=== PATIENT | male | born 1960 | race Hispanic/Latino ===

== ENCOUNTER 2017-01-25 15:25 | Outpatient (CLI) | payer BC ==
[2017-01-25 17:10] LABS: #Basophils 0.1 thou/uL (0.0-0.2); #Eosinphils 0.2 thou/uL (0.0-0.7); #Lymphocytes 1.2 thou/uL (1.20-3.40); #Monocytes 0.4 thou/uL (0.11-0.59); #Neutrophils 10.3 thou/uL (1.40-6.50); %Basophils 0.5 % (0.0-1.0); %Eosinophils 1.9 % (0.0-10.0); %Lymphocytes 10.1 % (21.0-51.0); %Monocytes 3.3 % (0.0-10.0); Hematocrit 36.4 % (42.0-52.0); Mean Platelet Volume 6.7 fL (7.4-10.4); Red Blood Cell (RBC) Count 4.43 mill/uL (4.70-6.10); White Blood Cell (WBC) Count 12.3 thou/uL (4.8-10.8)
[2017-01-25 17:50] LABS: Anion Gap 14 mmol/L (10-20); BUN (Urea Nitrogen) 35 mg/dL (8.4-25.7); Calc. Creatinine Clearance 0 mL/min (70-130); Calcium 9.9 mg/dL (7.8-10.44); Carbon Dioxide 22 mmol/L (22-29); Chloride 102 mmol/L (98-107); Estimated GFR-MDRD 50
--- NOTE | 2017-01-27 06:24 | EKG ---
Test Reason : PREOP Blood Pressure : / mmHG Vent. Rate : 084 BPM Atrial Rate : 084 BPM P-R Int : 230 ms QRS Dur : 180 ms QT Int : 406 ms P-R-T Axes : 036 -61 029 degrees QTc Int : 479 ms Sinus rhythm with 1st degree A-V block Possible Left atrial enlargement Right bundle branch block Left anterior fascicular block Bifascicular block Left ventricular hypertrophy with QRS widening Cannot rule out Septal infarct , age undetermined Abnormal ECG No previous ECGs available Confirmed by LAKEISHA ORDOÑEZ ([id number]) on 01/27/2017 6:24:04 AM Referred By: FARRUKH Confirmed By:LAKEISHA ORDOÑEZ
== END 2017-01-25 15:26 | disposition home or self-care (01) ==
LOC: LABBT 15:25
PROVIDERS: ATTEND Podiatrist Foot & Ankle Surgery
DX: Z01.818 Encounter for other preprocedural examination (principal); L97.419 Non-pressure chronic ulcer of right heel and midfoot with unspecified severity; M86.9 Osteomyelitis, unspecified
CPT/HCPCS: 80048; 85025; 93005; 93010

== ENCOUNTER → 2017-01-26 | Day surgery (SDC) | payer BC ==
[2017-01-25 15:51] VITALS: BMI 27.8
[~2017-01-26] MED LIST: Bupivacaine PF 0.5% 30 ML VIAL ONE; Esmolol 100 MG/10 ML VIAL ONE; Fentanyl 100 MCG/2 ML VIAL ONE; Ketorolac Tromethamine 30 MG/ML VIAL ONE; Lidocaine 2% PF 10 ML AMP (For Epidural Use) ONE; Midazolam HCl 2 mg/2 ml Vial ONE; Neomycin-Polymyxin 1 ML AMP ONE; Ondansetron HCl/PF 4 MG/2 ML Vial ONE; PHENYLEPHRINE-NS 100 MCG/ML 10 ML SYRINGE ONE; Propofol 200 MG/20 ML VIAL ONE
--- NOTE | 2017-01-26 16:54 | RAD ---
RIGHT FOOT THREE VIEWS: History: Right foot surgery. Follow up. Comparison: 06-30-16 FINDINGS: Amputation of the fifth ray is now apparent at the level of the proximal metatarsal shaft. Old opera tive changes of the fourth metatarsal are stable. No soft tissue gas or metallic foreign bodies are evident. Large area of dystrophic calcification projects over the posterior aspect of the plantar fa scia. IMPRESSION: Further surgical changes of the lateral aspect of the right foot. POS: BONNIE
--- NOTE | 2017-01-26 18:59 | OP ---
DATE OF PROCEDURE: 01/26/2017 SURGEON: Kimberly Davis DPM. PREOPERATIVE DIAGNOSES: Osteomyelitis, right fifth digit and metatarsal, chronic diabetic foot ulce r, left plantar fifth metatarsal head. POSTOPERATIVE DIAGNOSES: Osteomyelitis, right fifth digit and metatarsal, chronic diabetic foot ulc er, left plantar fifth metatarsal head. PROCEDURES PERFORMED: Amputation of fifth digit and metatarsal right foot and fifth metatarsal righ t foot. ANESTHESIA: General with local foot block. HEMOSTASIS: Pneumatic ankle tourniquet at 300 mmHg. ESTIMATED BLOOD LOSS: 30 mL. MATERIALS: 2-0 Vicryl, 3-0 Prolene, 2-0 Prolene and 0 Prolene. INJECTABLES: 30 mL of 0.5% Marcaine plain. DESCRIPTION OF PROCEDURE: The patient was brought into the operating room and placed on the operati ng table in supine position, well-padded pneumatic ankle tourniquet was placed about the patient's l eft ankle. Following administration of IV anesthesia, local foot block was given utilizing 30 mL of 0.5% Marcaine plain. The foot was then scrubbed, prepped and draped in usual aseptic manner. Lisbeth [facility] bandage was used to exsanguinate the patient's left foot and the pneumatic ankle tourniquet was then inflated to 300 mmHg, which provided adequate hemostasis throughout the entire procedure. Next , attention was then directed to the lateral aspect of the patient's right foot where a semi ellipti luciano incision was made around the first metatarsal head and metatarsal was then freed of all soft tis susie attachments. All necrotic tissue and bone were then resected and passed from the operative fiel d. The wound was then inspected and it was noted that the base of the proximal phalanx was necrotic and at this time, it was decided that the fifth digit was nonviable and was resected from the opera tive field. The wound was then inspected. No remaining necrotic tissue, bone, or muscle remained. A 3000 mL pulse lavage was then performed with to irrigate the wound. Next, utilizing 2-0 Vicry l, the subcuticular structures were reapproximated and coapted and the skin was closed utilizing 2-0 , 3-0 and 0 Prolene and simple interrupted suture technique. A bulky compressive dressing was place d about the patient's right foot and the pneumatic ankle tourniquet was released with prompt hyperem ic response noted to all digits of the foot. DISCHARGE SUMMARY: The patient tolerated the procedure and anesthesia and was transferred to the re covery room with vital signs stable and vascular status intact to all digits of the right foot. Fol lowing a period of postoperative monitoring, the patient is to be discharged home and advised to luciano l within 1 week and will be seen on Tuesday. Should he have any problems before his first appointmen t, he is advised to call and will be seen as soon as possible.
== END ==
LOC: SDC 11:56
PROVIDERS: ATTEND Podiatrist Foot & Ankle Surgery
PROC: 0Y6M0Z8 Detachment at Right Foot, Complete 5th Ray, Open Approach (ICD-10-PCS; principal; 2017-01-26)
DX: L97.514 Non-pressure chronic ulcer of other part of right foot with necrosis of bone (principal); E11.621 Type 2 diabetes mellitus with foot ulcer; M86.9 Osteomyelitis, unspecified; Z79.4 Long term (current) use of insulin; Z79.899 Other long term (current) drug therapy; Z89.429 Acquired absence of other toe(s), unspecified side; Z98.890 Other specified postprocedural states
CPT/HCPCS: 36416; 87070; 87077; 87186; 87205; J1170; J1885; J2001; J2250; J2405; J2704; J3010; S0020

== ENCOUNTER 2018-09-04 11:28 | Inpatient (IN) | payer BC, OTHER, SELFPAY ==
[2018-09-04 12:16] LABS: Bilirubin Negative (Negative); Blood, Urine Moderate (Negative); Clarity CLOUDY (Clear); Glucose, Urine (Dipstick) 500 mg/dL (Negative); Leukocyte Negative (Negative); Nitrite Negative (Negative); Protein, Urine (Dipstick) > or equal to 300 mg/dL (Neg-Trace)
[2018-09-04 12:22] LABS: Hemoglobin 8.6 g/dL (14.0-18.0); Mean Corpuscular HGB CONC 33.2 g/dL (32.0-36.0); Mean Corpuscular Hemoglobin 26.8 pg (27.0-31.0); Mean Corpuscular Volume 80.9 fL (78.0-98.0); Mean Platelet Volume 6.6 fL (7.4-10.4); Platelet Count 382 thou/uL (130-400); RBC Distribution Width 12.7 % (11.5-14.5); Red Blood Cell (RBC) Count 3.22 mill/uL (4.70-6.10); White Blood Cell (WBC) Count 21.2 thou/uL (4.8-10.8)
[2018-09-04 12:25] LABS: Pathc Cast-AUWi Flag 7.61 (0-2.49)
[2018-09-04] MEDS ORDERED: Ondansetron PF 4 MG/2 ML Vial ONE (12:31)
[2018-09-04] MEDS ORDERED: Morphine 4 MG/ML VIAL ONE (12:31)
[2018-09-04 12:39] LABS: Bacteria/HPF 2+ HPF (None Seen); Hyaline Casts/LPF 0-3 HYALINE CAST LPF (0-3 Hyaline)
[2018-09-04 12:40] LABS: Manual Microscopic Reviewed? No Path Casts Seen; Renal Epithelial None Seen HPF (0-3); Transitional Epithelial NONE SEEN HPF (0-3)
[2018-09-04 12:40] LABS: Band 21 % (5-11); Lymphocytes 2 % (21-51); MDiff Complete? YES; Monocytes 10 % (0-10); Neutrophil 67 % (42-75); Platelet Morphology Comment Appears Adequate; Polychromasia SLIGHT = 2-3 cells (100X) (0-2/hpf)
[2018-09-04 12:41] LABS: ALT (SGPT) 16 U/L (8-55); AST (SGOT) 18 U/L (5-34); Albumin 2.5 g/dL (3.5-5.0); Alkaline Phosphatase 171 U/L (40-150); Anion Gap 17 mmol/L (10-20); BUN (Urea Nitrogen) 57 mg/dL (8.4-25.7); Bilirubin, Total 0.5 mg/dL (0.2-1.2); Calc. Creatinine Clearance 0 mL/min (70-130); Calcium 9.1 mg/dL (7.8-10.44); Carbon Dioxide 17 mmol/L (22-29); Chloride 96 mmol/L (98-107); Estimated GFR-MDRD 12; Globulin 3.8 g/dL (2.4-3.5); Glucose 207 mg/dL (70-105); Potassium 4.6 mmol/L (3.5-5.1); Protein, Total 6.3 g/dL (6.0-8.3); Sodium 125 mmol/L (136-145)
--- NOTE | 2018-09-04 12:45 | RAD ---
RIGHT FOOT 3 VIEWS: HISTORY: Diabetic ulcer on right foot. COMPARISON: 01/26/2017 FINDINGS: Postoperative changes of amputation involving the fourth and fifth digits are again seen in the dista l fourth and proximal left metatarsals. A large area of dystrophic calcification in the posterior aspect of the plantar fascia is again seen. There are foci of soft tissue air at the posterior aspect of the ankle and distal leg and the soft ti ssues of the foot. Possibility of soft tissue infection should be considered..
[2018-09-04] MEDS ORDERED: Piperacillin/Tazobactam 4.5 GM VIAL ONE (13:05)
--- NOTE | 2018-09-04 13:09 | RAD ---
XR Chest 1 View Portable HISTORY: Diabetic ulcer on right foot COMPARISON: None FINDINGS: The heart size is prominent. There is elevation the right hemidiaphragm. No lobar consolida tion, pneumothoraces, lore pulmonary edema or pleural effusions are seen. IMPRESSION: No radiographic evidence of acute cardiopulmonary process.
[2018-09-04] MEDS ORDERED: Vancomycin HCl 1.25 GM in Sodium Chloride 0.9% 250 ML 250 ML IVPB SCH (13:15)
[2018-09-04] MEDS ORDERED: Acetaminophen 500 MG TAB ONE (14:19)
[2018-09-04] MEDS ORDERED: Ondansetron PF 4 MG/2 ML Vial IVP PRN (17:44)
[2018-09-04] MEDS ORDERED: Ondansetron ODT 4 MG TAB SL PRN (17:44)
[2018-09-04] MEDS ORDERED: Sodium Chloride 0.9% 1,000 ML IV SCH (17:44)
[2018-09-04] MEDS ORDERED: Morphine 4 MG/ML VIAL SLOW IVP PRN (17:46)
[2018-09-04] MEDS ORDERED: HumaLOG 300 UNITS/3 ML VIAL SC PRN ×2 (17:47)
[2018-09-04] MEDS ORDERED: Dextrose 5% in Water 1,000 ML IV PRN (17:47)
[2018-09-04] MEDS ORDERED: Dextrose 50% Abboject 50 ML SYRINGE IVP PRN (17:47)
[2018-09-04] MEDS ORDERED: Insulin Regular 300 UNITS/3 ML VIAL SC PRN ×2 (17:51)
[2018-09-04] MEDS: Piperacillin/Tazobactam 2.25 GM in Sodium Chloride 0.9% 100 ML IVPB SCH (19:34)
[2018-09-05] MEDS: Piperacillin/Tazobactam 2.25 GM in Sodium Chloride 0.9% 100 ML IVPB SCH ×4 (00:23→23:24)
[2018-09-05] MEDS ORDERED: Vancomycin HCl 1.25 GM in Sodium Chloride 0.9% 250 ML 250 ML IVPB SCH (02:00)
--- NOTE | 2018-09-05 02:26 | HP ---
CHIEF COMPLAINT: Sepsis and gangrene to the right foot. HISTORY OF PRESENT ILLNESS: The patient is a 58-year-old diabetic male, who has a long history of noncompliance concerning his diabetes or any medical care. He has had a history of previous amputation to the right foot due to diabetic complications stemming ultimately from not taking medical advice. He has been ill for over a week with fevers and nausea. What finally brought him to Dr. Bright' office is the nausea. He walked into Dr. Bright' office with 101.4 temperature. On examination of the right foot, the malodorous ulceration and drainage were tremendous. He also had pain in the right foot; at which point, he was referred to the emergency room for probable hospital admission. In the ER, he admitted to fever, chills, nausea, and vomiting. He walked in tachycardic and temperature 101.4. Again, examination of the right foot revealed soft tissue air behind the ankle and up the leg along with the foot itself and open nonhealing wound was noted. The patient appeared quite ill. Fluid resuscitation was begun and after cultures were obtained, IV antibiotics began. It is noted that his renal function has fairly diminished and he with ketones was noted to be mildly dehydrated. He is admitted for further care and surgical consultation, which will probably result in some debridement if not amputation. Fortunately, x-ray does not show any osteomyelitis. PAST MEDICAL HISTORY: Type 2 diabetes; hypertension; neuropathy, diabetic; parathyroid adenoma with resection; dyslipidemia; and significant medical noncompliance. PAST SURGICAL HISTORY: As mentioned previously, 2 surgeries on the right foot with its resulting in amputations, parathyroid resection for an adenoma. He has also had orthopedic surgery to his right shoulder. ALLERGIES: HE HAS NO KNOWN DRUG ALLERGIES. MEDICATIONS ON ADMISSION: Included: 1. Ramipril 10 mg daily. 2. Metformin 1000 mg b.i.d. 3. Hydrochlorothiazide 50 mg daily. 4. Vitamin B6 100 mg daily. 5. Other prescriptions were given to control the diabetes, but these were not filled. REVIEW OF SYSTEMS: CONSTITUTIONAL: On admission significant for chills, fever, and general malaise. HEENT: No drainage or sores from the ears, nose, and throat. CHEST: Denies shortness of breath or cough. CARDIOVASCULAR: Denies chest pain or palpitations. GI: Significant for nausea and vomiting. Denies diarrhea. : Negative for blood in urine or stool. Denies dysuria. MUSCULOSKELETAL: Significant for right lower extremity swelling and pain. SKIN: Skin with nonhealing right diabetic foot ulcer that has gotten worse with drainage and foul odor. NEUROLOGIC: He has significant neuropathy in both lower extremities. Denies headaches or blurred vision. PHYSICAL EXAMINATION: At the time of admission: VITAL SIGNS: Blood pressure is 130/62, pulse 103, respirations 18, temperature 101.4, pain scale 7/10 and O2 saturation 97% on room air. GENERAL: This is a pale, lethargic, [place] male, who is slow to respond, but oriented. HEENT: Normocephalic, atraumatic. Pupils are equal, round, and reactive to light. Extraocular muscles are intact. TMs, nares, and pharynx are clear. NECK: Supple. Trachea midline. CHEST: Clear to auscultation. HEART: Regular rate and rhythm. No murmur. ABDOMEN: Soft, nontender without hepatosplenomegaly. : Deferred. EXTREMITIES: Upper extremities and left lower extremity without clubbing, cyanosis, or edema. Right lower extremity, however, has nonhealing ulcer wound, draining malodorous discharge and tender to evaluation. The 4th and 5th toes on the right foot are missing. The sores are 4 x 4 cm stage IV ulceration. NEUROLOGIC: Cranial nerves are intact. Unable to test gait and cerebellar function at this time. Sensory exam is diminished in the lower extremities from the shins down. LABORATORY DATA: Lab on my evaluation. EKG shows sinus tachycardia with incomplete right bundle-branch block. Left ventricular hypertrophy with 107 beats per minute. Chest x-ray shows no acute findings. X-ray of the right lower extremity shows soft tissue air extending behind the ankle up the leg and soft tissue swelling and showed the missing 4th and 5th toes. No osteomyelitis. WBCs are 21,200, hemoglobin 8.6, hematocrit 26, platelets are 382 with 21% bands. Sodium 125, potassium is 4.6, chloride 96, CO2 of 17, BUN 57, creatinine 4.86 with a glucose of 207. Liver functions unremarkable except for alkaline phos elevated at 171. Urinalysis reveals proteinuria, glucosuria, trace ketones and moderate blood. ASSESSMENT: 1. Sepsis. 2. Right foot gangrene due to nonhealing diabetic ulcer. 3. Type 2 diabetes - noncompliant. 4. End-stage renal disease also due to noncompliance with medication for hypertension and diabetes. 5. Hypertension. PLAN: Cultures were taken. We will continue IV antibiotics. Surgical consultation and Renal consultation will be sought. We will maintain wound care and pain management and serially re-evaluate the patient. Job ID: [id number]
[2018-09-05] MEDS ORDERED: Morphine 4 MG/ML VIAL SLOW IVP PRN (07:11)
[2018-09-05] MEDS ORDERED: Zolpidem Tartrate 5 MG TAB PO PRN (07:13)
[2018-09-05] MEDS ORDERED: Sodium Chloride 0.9% 1,000 ML IV SCH ×2 (07:15→19:04)
[2018-09-05] MEDS ORDERED: Dextrose 50% Abboject 50 ML SYRINGE IVP PRN (07:17)
[2018-09-05] MEDS ORDERED: Dextrose 5% in Water 1,000 ML IV PRN (07:17)
[2018-09-05 07:39] LABS: Anion Gap 19 mmol/L (10-20); BUN (Urea Nitrogen) 67 mg/dL (8.4-25.7); Calc. Creatinine Clearance 20 mL/min (70-130); Calcium 8.4 mg/dL (7.8-10.44); Carbon Dioxide 13 mmol/L (22-29); Chloride 100 mmol/L (98-107); Estimated GFR-MDRD 12; Glucose 150 mg/dL (70-105); Potassium 4.6 mmol/L (3.5-5.1); Sodium 127 mmol/L (136-145)
[2018-09-05 07:41] LABS: Hemoglobin 7.7 g/dL (14.0-18.0); Mean Corpuscular HGB CONC 33.8 g/dL (32.0-36.0); Mean Corpuscular Hemoglobin 27.9 pg (27.0-31.0); Mean Corpuscular Volume 82.6 fL (78.0-98.0); Mean Platelet Volume 7.1 fL (7.4-10.4); Platelet Count 288 thou/uL (130-400); RBC Distribution Width 12.8 % (11.5-14.5); Red Blood Cell (RBC) Count 2.76 mill/uL (4.70-6.10); White Blood Cell (WBC) Count 19.8 thou/uL (4.8-10.8)
[2018-09-05 08:07] LABS: Band 23 % (5-11); Burr Cells SLIGHT = 2-5 cells (100X) (0-1/hpf); Lymphocytes 3 % (21-51); MDiff Complete? YES; Monocytes 5 % (0-10); Neutrophil 69 % (42-75); Platelet Morphology Comment Appears Adequate; Polychromasia SLIGHT = 2-3 cells (100X) (0-2/hpf)
[2018-09-05 08:27] LABS: Hemoglobin A1c 10.7 % (4.0-6.0)
--- NOTE | 2018-09-05 08:29 | ULT ---
Ultrasound renal: HISTORY: 58-year-old male with hematuria and acute renal failure FINDINGS: There is no hydronephrosis. Bilateral renal parenchymal echogenicity is diffusely mildly increased, c onsistent with medical renal disease. Right kidney measures 11.5 x 6 x 6 cm. Left kidney measures 12 x 6 x 6.5 cm. There is nonspecific diffuse mural thickening of the incompletely distended urinary bladder. No moderate sized or large renal cystic or solid lesion identified. IMPRESSION: 1. No hydronephrosis. 2. Evidence for medical renal disease.
[2018-09-05] MEDS ORDERED: Vancomycin HCl 1 GM in Premix Bag 1 BAG IVPB SCH ×2 (09:00→14:30)
[2018-09-05] MEDS: Insulin Regular 300 UNITS/3 ML VIAL SC PRN ×2 (13:45→18:03)
[2018-09-05 14:31] LABS: Iron Less than 8 ug/dL (65-175); Iron Binding Capacity, Total 80 mcg/dL (261-462)
[2018-09-05] MEDS ORDERED: Epoetin (ESRD) 20,000 UNITS/ML SC SCH (19:15)
[2018-09-05] MEDS ORDERED: EPOETIN ALFA-EPBX (ESRD) 4,000 UNIT/ML VIAL SC SCH (20:00)
[2018-09-05] MEDS: Ondansetron PF 4 MG/2 ML Vial SLOW IVP PRN (23:31)
--- NOTE | 2018-09-06 01:37 | CON ---
DATE OF CONSULTATION: CONSULTING PHYSICIAN: Syed Webber MD REASON FOR CONSULTATION: Advanced kidney disease plus also acute on chronic kidney disease. IMPRESSION: 1. Advanced kidney disease, stage 5 plus acute on chronic kidney disease, likely in the context of diabetic nephropathy due to poorly controlled diabetes. 2. Potential cytokine mediated acute kidney injury in the context of infection cannot be completely ruled out. 3. Metabolic acidosis, likely in the context of advanced renal failure. 4. Anemia, likely anemia of chronic kidney disease, but cannot completely to rule out iron deficiency. 5. Poorly controlled diabetes, already complicated by possible vascular disease and renal failure. PLAN: 1. Iron studies to evaluate what type of anemia this patient has. 2. The patient likely to benefit from erythropoietin stimulating agents. 3. From all indication, the patient likely to the point of stage 5 chronic kidney disease, unless remarkable improvement is noted within the next 24-48 hours. 4. Will begin to plan for access in this patient in case if the renal function does not improve. 5. Renally dose all medications for low GFR. 6. We will evaluate all the . 7. Further management will be dependent on the clinical course. 8. Hold Ramipril and discontinue metformin. 9. Discontinue IV fluids. HISTORY OF PRESENT ILLNESS: A 58-year-old gentleman with poorly-controlled diabetes, who presented to the primary care physician with the concern of nausea and vomiting. The patient also does have right foot gangrene and was noted to be febrile. The patient presented to the ER and noted with a temperature of up to 101.4. Further evaluation did reveal elevated creatinine of about 4.8. At this time of consultation, creatinine has gone up above 5. The patient noted to be significantly acidotic. As a result of all these findings, decision has been taken to involve Renal in the management of this case. PAST MEDICAL HISTORY: Significant for type 2 diabetes, poorly controlled hypertension, and dyslipidemia. MEDICATIONS: Reviewed and as documented on [employer]. ALLERGIES: NO KNOWN DRUG ALLERGIES. REVIEW OF SYSTEMS: As documented in the body of the history. All the other systems were reviewed and found not to be significantly related to present illness. PHYSICAL EXAMINATION: GENERAL: The patient was found not to be in any obvious respiratory distress. VITAL SIGNS: Noted with the following vital signs; afebrile, temperature 99.2, pulse 69, respiratory rate of 18, O2 saturation of 99% with a blood pressure 128/70. HEENT: Unremarkable. Moist oral mucosa. Neck was supple. No conjunctival injection or icterus. CARDIOVASCULAR: First and second heart sounds were heard. RESPIRATORY SYSTEM: Clear to auscultation. DIGESTIVE: Revealed a benign abdomen. EXTREMITIES: Showed some peripheral edema. SKIN: Examination showed some lower extremity depigmentation. SUMMARY: A 58-year-old gentleman with poorly-controlled diabetes, who most likely has advanced chronic kidney disease at stage 5 in the context of diabetic nephropathy, already complicated by acidosis and possible incipient uremia. Thank you for this consultation. We will follow with you. Job ID: [id number]
[2018-09-06 02:26] LABS: Creatinine, Urine 63.98 mg/dL (63-166)
[2018-09-06] MEDS: Piperacillin/Tazobactam 2.25 GM in Sodium Chloride 0.9% 100 ML IVPB SCH ×4 (05:33→23:52)
[2018-09-06] MEDS: Ondansetron PF 4 MG/2 ML Vial SLOW IVP PRN (08:38)
[2018-09-06 08:45] LABS: Hemoglobin 8.2 g/dL (14.0-18.0); Mean Corpuscular HGB CONC 32.3 g/dL (32.0-36.0); Mean Corpuscular Hemoglobin 26.8 pg (27.0-31.0); Mean Corpuscular Volume 83.2 fL (78.0-98.0); Mean Platelet Volume 6.9 fL (7.4-10.4); Platelet Count 360 thou/uL (130-400); RBC Distribution Width 13.2 % (11.5-14.5); Red Blood Cell (RBC) Count 3.04 mill/uL (4.70-6.10); White Blood Cell (WBC) Count 26.4 thou/uL (4.8-10.8)
[2018-09-06 08:57] LABS: Albumin 2.3 g/dL (3.5-5.0); Anion Gap 20 mmol/L (10-20); BUN (Urea Nitrogen) 84 mg/dL (8.4-25.7); BUN/Creatinine Ratio 13.86; Calc. Creatinine Clearance 17 mL/min (70-130); Calcium 8.6 mg/dL (7.8-10.44); Carbon Dioxide 12 mmol/L (22-29); Chloride 98 mmol/L (98-107); Estimated GFR-MDRD 10; Glucose 187 mg/dL (70-105); Potassium 4.6 mmol/L (3.5-5.1); Sodium 125 mmol/L (136-145)
--- NOTE | 2018-09-06 09:18 | CON ---
DATE OF CONSULTATION: 09/05/2018 The patient is located on fourth floor of the tower 44[address]. HISTORY OF PRESENT ILLNESS: Mr. Parry is a 58-year-old male , who presents today for sepsis, ulcer on the plantar aspect of his right foot. The patient claims that he has had an open sore for several weeks. Prior to the sore opening, it was a callus on the bottom of his foot that was treated on and off for years by several local pastry assistant in town and Dr. Jackman, General Surgery. The patient claims that the ulcer this past week developed a smell and became swollen in nature. He developed fevers and chills over the weekend. Presented to his primary care, Dr. Geronimo Bright on 09/04/2018, yesterday, who told him he needed to go to the ER and was admitted. The patient is high risk, has a history of diabetes with neuropathy with fourth and fifth amputations on the right foot. PAST MEDICAL HISTORY: Significant for renal disease, diabetes with neuropathy, and hypertension. ALLERGIES: NO DRUG ALLERGIES. SOCIAL HISTORY: Denies alcohol or tobacco use. FAMILY HISTORY: Positive for diabetes. PAST SURGICAL HISTORY: Includes thyroidectomy, shoulder surgery and fourth and fifth digit right foot amputations. MEDICATIONS: Noted in chart. REVIEW OF SYSTEMS: Noted in chart. PHYSICAL EXAMINATION: LOWER EXTREMITIES: Vascular status 2/4, dorsalis pedis 1/4, posterior tibial pulses bilaterally. Capillary fill time 3 seconds or less digits 1 through 5, left foot and digits 1, 2 and 3 on the right foot. Warm skin. Pigmentary changes. Mild discoloration. Reduced hair growth. NEUROLOGIC: Epicritic sensation is reduced, bilateral feet. Protected threshold significantly reduced bilateral feet. MUSCULOSKELETAL: Examination reveals 5/5 muscle grading, good range of motion bilateral lower extremities. Ambulatory. History of fourth and fifth digit amputations, right foot. DERMATOLOGIC: An open ulceration measuring approximately 3 cm x 2 cm in diameter with exposed second metatarsal head bone is noted on the plantar aspect of the right foot. There is deep fascia nonviable muscle necrotic tissue noted to the base of the wound extending from the second MPJ to the third MPJ. Mild erythema, edema and warmth to the jacqueline-marginal skin area surrounding the ulcer base. There is serous drainage, mild purulent drainage also noted on compression of the foot. No acute cellulitis is noted at this time. ASSESSMENT AND PLAN: Acute osteomyelitis, open ulceration, diabetic ulcer, plantar right foot. Due to exposed second metatarsophalangeal, right foot and possible third metatarsophalangeal, right foot, the patient at this time needs surgical bone resection/possible amputation, partial of right foot. It is hard to distinguish the extent of the infection at this time, so I ordered an MRI of the right foot this evening to be performed as soon as possible in the morning. The plan is to hopefully schedule patient for surgery tomorrow evening and put the patient n.p.o. in the morning. I will await MRI results for further treatment at this time. Thank you for consultation. If there are any questions or concerns, please call me at [phone]. Job ID: [id number]
[2018-09-06 09:30] LABS: Band 16 % (5-11); Burr Cells SLIGHT = 2-5 cells (100X) (0-1/hpf); Lymphocytes 5 % (21-51); MDiff Complete? YES; Monocytes 2 % (0-10); Myelocyte 1 % (0-0); Neutrophil 76 % (42-75); Platelet Morphology Comment Appears Adequate; Polychromasia SLIGHT = 2-3 cells (100X) (0-2/hpf)
[2018-09-06] MEDS: Insulin Regular 300 UNITS/3 ML VIAL SC PRN ×2 (12:46→16:40)
--- NOTE | 2018-09-06 12:51 | MRI ---
MRI OF THE RIGHT FOOT WITHOUT CONTRAST: HISTORY: A 58-year-old male with a diabetic foot ulcer. COMPARISON: Radiograph dated 09/04/2018. FINDINGS: Again seen is postsurgical change of a partial radial amputation to the 4th and 5th digits. There is a large plantar-based wound underlying the 3rd and 2nd metatarsophalangeal joints. There is an ununited angulated fracture involving the 2nd digit proximal phalangeal neck. There is m ild edema within the bone marrow of the 2nd metatarsal head and base of the 2nd digit proximal phalan x. There is a mild joint effusion. The findings on this noncontrast examination are suspicious for septic arthritis and early osteomyelitis of the 2nd digit MTP joint. More pronounced edematous change is evident involving the 3rd digit MTP joint with more prominent eliseo nt effusion and abnormal signal involving the 3rd digit MTP head and 3rd digit proximal phalanx. There is diffuse edema within the soft tissues and musculature of the right foot. There is heterotop ic ossification seen within the medial plantar fascial band. Soft tissue gas is present on the radio graph dated 09/04/2018 is not as well seen on the current MRI examination and is suspicious for an asc ending soft tissue infection. There is abnormal marrow signal involving the distal tip of the 4th metatarsal amputation site suspic ious for residual osteomyelitis at the amputation margin. There is mild scattered osteoarthrosis. IMPRESSION: 1. Osteomyelitis of the 2nd through 4th metatarsals. 2. Osteomyelitis of the proximal phalanx of the 2nd and 3rd digits. 3. Septic arthritis of the 2nd and 3rd digit metatarsophalangeal joints. 4. Diffuse edema and cellulitis of the foot and ankle. POS: CET
[2018-09-06 14:27] LABS: Vancomycin, Random 21.6 ug/mL (See Comment)
[2018-09-06] MEDS ORDERED: PHENYLEPHRINE-NS 100 MCG/ML 10 ML SYRINGE ONE (16:33)
[2018-09-06] MEDS ORDERED: Rocuronium Bromide 10 MG/ML (10ML VIAL) ONE (16:33)
[2018-09-06] MEDS ORDERED: Glycopyrrolate 0.2 MG/ML 5 ML SYRINGE ONE (16:33)
[2018-09-06] MEDS ORDERED: Sodium Bicarb 50 MEQ/50 ML VIAL ONE (16:33)
[2018-09-06] MEDS ORDERED: ePHEDrine 50 MG/ML VIAL ONE (16:33)
[2018-09-06] MEDS ORDERED: EPINEPHrine 1 MG/10 ML Abboject SYRINGE ONE (16:33)
[2018-09-06] MEDS ORDERED: Calcium Chloride 1 GM/10 ML Abboject SYRINGE ONE (16:33)
[2018-09-06] MEDS ORDERED: Esmolol 100 MG/10 ML VIAL ONE (16:33)
[2018-09-06] MEDS ORDERED: Lidocaine 1% PF 5 ML VIAL ONE (16:33)
[2018-09-06] MEDS ORDERED: PROPOFOL 200 MG/20 ML VIAL ONE (16:33)
--- NOTE | 2018-09-06 17:50 | EKG ---
Test Reason : Blood Pressure : / mmHG Vent. Rate : 087 BPM Atrial Rate : 087 BPM P-R Int : 206 ms QRS Dur : 186 ms QT Int : 400 ms P-R-T Axes : 026 -55 023 degrees QTc Int : 481 ms Normal sinus rhythm Right bundle branch block Left anterior fascicular block Bifascicular block Minimal voltage criteria for LVH, may be normal variant Abnormal ECG When compared with ECG of 04-SEP-2018 12:30, (Unconfirmed) No significant change was found Confirmed by DR. Sangita LEE ([id number]) on 09/06/2018 5:50:21 PM Referred By: FLORENTIN Confirmed By:DR. Sangita LEE
--- NOTE | 2018-09-06 18:43 | PRG ---
DATE OF SERVICE: 09/06/2018 SUBJECTIVE: The patient is seen and examined, not doing very well. He obviously in some distress. Noted with the following vital signs. OBJECTIVE: VITAL SIGNS: Afebrile, temperature 97.9, pulse 88, respiratory rate of 20, O2 saturations are 97% with a blood pressure 126/63. HEENT: Unremarkable. CARDIOVASCULAR SYSTEM: First and second heart sounds were heard. RESPIRATORY SYSTEM: Clear to auscultation. DIGESTIVE SYSTEM: Revealed benign abdomen. EXTREMITIES: Show 2+ bilateral lower extremity edema. SKIN: No new gross rash. LYMPHATICS: No peripheral lymphadenopathy. LABORATORY INVESTIGATION: Showed white count of 26,400 with hemoglobin of 8.2. Chemistry showed a sodium of 125, bicarb of 12, BUN of 84 with a creatinine of 6.06, and PTH of 286. IMPRESSION: 1. Acute on chronic kidney disease, which has progressed to the point requiring renal replacement therapy. 2. Worsening metabolic acidosis related to problem #1. 3. Hyperphosphatemia and hyperparathyroidism related to problem #1. 4. Bacteremia. PLAN: 1. We will consult surgery for dialysis access. In this case, we will also plan for long-term dialysis access in the wear of AV fistula. 2. Vein mapping in preparation for long-term dialysis access. 3. We will defer to surgery in terms of the choice of dialysis catheter temporary vessels given the positive blood cultures. 4. Further management to be dependent on the clinical course. Job ID: [id number]
--- NOTE | 2018-09-06 19:45 | ULT ---
BILATERAL UPPER EXTREMITY VEIN MAPPING 09/06/18 COMPARISON: None. HISTORY: Renal failure, evaluation for dialysis access planning. TECHNIQUE: Multiplanar prince scale sonographic imaging of the vascular structures of bilateral upper extremities obtained with color flow and spectral analysis. FINDINGS: The internal jugular vein, subclavian vein, and axillary vein is patent bilaterally. VESSEL DIAMETER (mm) RIGHT BRACHIAL ARTERY: 4 RADIAL ARTERY: 2.5 ULNAR ARTERY: 1.8 CEPHALIC VEIN Above elbow proximal 1.4 Above elbow mid 1.5 Above elbow distal 1.3 At elbow 1.3 Below elbow proximal 1.4 Below elbow mid 1.1 Below elbow distal 1.2 BASILIC VEIN Above elbow proximal 5.4 Above elbow mid 4.3 Above elbow distal 3.2 At elbow 2.0 Below elbow proximal 0.5 Below elbow mid 0.6 Below elbow distal 0.4 LEFT UPPER EXTREMITY BRACHIAL ARTERY: 3.7 RADIAL ARTERY: 3.0 ULNAR ARTERY: 2.2 CEPHALIC VEIN Above elbow proximal 2.2 Above elbow mid 1.3 Above elbow distal 1.4 At elbow 1.3 Below elbow proximal 1.0 Below elbow mid 0.7 Below elbow distal 1.3 BASILIC VEIN Above elbow proximal 2.2 Above elbow mid 2.4 Above elbow distal 2.2 At elbow 1.4 Below elbow proximal 0.6 Below elbow mid 0.6 Below elbow distal 0.8 IMPRESSION: Vascular mapping as detailed above. POS: OFF
[2018-09-06] MEDS ORDERED: Vancomycin HCl 1 GM in Premix Bag 1 BAG IVPB SCH (21:00)
[2018-09-07] MEDS ORDERED: Clopidogrel Bisulfate 75 MG TAB ONE (05:10)
[2018-09-07] MEDS: Piperacillin/Tazobactam 2.25 GM in Sodium Chloride 0.9% 100 ML IVPB SCH ×2 (06:11→14:32)
[2018-09-07] MEDS: Insulin Regular 300 UNITS/3 ML VIAL SC PRN (06:12)
--- NOTE | 2018-09-07 07:34 | RAD ---
EXAM: Single view of the chest HISTORY: Preoperative radiograph COMPARISON: 09/04/2018 FINDINGS: Single view of the chest shows an enlarged but stable cardiomediastinal silhouette. There i s no evidence of consolidation, mass, or pleural effusion. The bones are unremarkable. IMPRESSION: No evidence of acute cardiopulmonary disease
[2018-09-07 08:17] LABS: Hemoglobin 7.4 g/dL (14.0-18.0); Mean Corpuscular HGB CONC 32.2 g/dL (32.0-36.0); Mean Corpuscular Volume 83.7 fL (78.0-98.0); Mean Platelet Volume 7.1 fL (7.4-10.4); Platelet Count 292 thou/uL (130-400); RBC Distribution Width 13.4 % (11.5-14.5); Red Blood Cell (RBC) Count 2.73 mill/uL (4.70-6.10); White Blood Cell (WBC) Count 25.4 thou/uL (4.8-10.8)
[2018-09-07 08:39] LABS: Albumin 1.9 g/dL (3.5-5.0); Anion Gap 19 mmol/L (10-20); BUN (Urea Nitrogen) 95 mg/dL (8.4-25.7); BUN/Creatinine Ratio 13.77; Calc. Creatinine Clearance 15 mL/min (70-130); Calcium 8.1 mg/dL (7.8-10.44); Carbon Dioxide 10 mmol/L (22-29); Chloride 99 mmol/L (98-107); Estimated GFR-MDRD 8; Glucose 194 mg/dL (70-105); Phosphorus 6.1 mg/dL (2.3-4.7); Potassium 4.4 mmol/L (3.5-5.1); Sodium 124 mmol/L (136-145)
[2018-09-07 08:58] LABS: HBSAB Concentration 2.73 mIU/mL; HBSAg Index 0.32 S/CO (0-0.99); Hep B Core Total Ab Non-Reactive (NonReactive); Hep B Core Total Index 0.07 S/CO (0-0.79); Hep B Surf AB Non-Reactive (NonReactive); Hep B Surf Ag Non-Reactive S/CO (NonReactive); Hep C IgG Ab Non-Reactive (NonReactive); Hep C Index 0.07 S/CO (0-0.79)
[2018-09-07 09:13] LABS: Band 17 % (5-11); Lymphocytes 1 % (21-51); MDiff Complete? YES; Metamyelocyte 1 % (0-0); Neutrophil 81 % (42-75); Platelet Morphology Comment Appears Adequate; Polychromasia SLIGHT = 2-3 cells (100X) (0-2/hpf)
[2018-09-07] MEDS ORDERED: cefTRIAXone\\ROCEPHIN 2 GM in Sodium Chloride 0.9% 100 ML IVPB SCH (14:00)
--- NOTE | 2018-09-07 14:26 | MRI ---
MRI Lower Ext No Jt Rt WO Con History: [Infection] Comparison: MRI prior day of the forefoot Findings: Bones: On the T1 weighted imaging sequence there is no evidence of T1 marrow signal replace ment to suggest osteomyelitis of the tibia or fibula. The tibiotalar joint is normal. Muscles: There is abnormal fluid collection within the tibialis posterior muscle which extends nearly to the level of the tib-fib joint. This suggests myonecrosis and abscess formation. There is gas within the flexor hallucis muscle extends proximally to the level of the proximal tibia there is orig in. There is abnormal edema within the flexor hallucis muscle. There is also abnormal edema of the soleus muscle as well as medial head gastrocnemius. There is abnormal angulation of fluid in the deep fascial spaces. There is abnormal accumulation of gas and fluid on the medial aspect of the ankle with extension of f luid through rupture of the flexor retinaculum. This collection of fluid does contain gas. Abnormal T2 signal fluid of the flexor tendons at the level of the ankle. The Achilles tendon is intact. Impression: 1. Posterior compartment abscess, myonecrosis, and myositis involving the tibialis posterior, flexor digitorum, flexor hallucis muscles as described. There is extensive gas tracking along the flexor hallucis and posterior tibial myotendinous junctions. There is abnormal fascial thickening indicating deep fasciitis. This extends to the level of the proximal tibiofibular joint. 2. Abnormal fluid within the anterior compartment as well as anterior bowing of the interosseous memb chandana suggesting tracking of organisms involving the tibialis anterior, extensor hallucis, axial chest wall musculature. There is likely infectious perforation of the interosseous membrane. 3. Deep fasciitis with infection tracking from the flexor musculature through the soleus and gastrocn emius muscles. There is relative sparing of the peroneal musculature. 4. Decompression of fluid from the posterior tibial tendon sheath into the medial soft tissues at the level of the ankle measuring 1.2 cm and transverse by 3 cm in AP dimension by craniocaudal length of 5.5 cm., a deep fascial abscess.
[2018-09-07] MEDS ORDERED: Fentanyl 100 MCG/2 ML VIAL ONE (16:52)
[2018-09-07] MEDS ORDERED: Famotidine/PF 20 mg/2ml Vial ONE (16:53)
--- NOTE | 2018-09-07 17:36 | PRG ---
DATE OF SERVICE: 09/07/2018 SUBJECTIVE: The patient is seen and examined. Not doing very well today with worsening renal function noted. The patient with the following vital signs. OBJECTIVE: VITAL SIGNS: Afebrile, temperature 98.8, pulse 79, respiratory rate of 18, O2 saturation 99% with a blood pressure 111/54. HEENT: Unremarkable. CARDIOVASCULAR SYSTEM: First and second heart sounds were heard. RESPIRATORY SYSTEM: Clear to auscultation. DIGESTIVE SYSTEM: Revealed a benign abdomen. EXTREMITIES: Showed peripheral edema. LABORATORY INVESTIGATION: Showed a white count of 25,000, hemoglobin of 7.4, and chemistry showed creatinine that has gone up to 6.9 with BUN of 95 and bicarb of 10, sodium of 124, phosphorus 6.1, albumin of 1.9. IMPRESSION: 1. Worsening renal failure with incipient uremic symptoms. 2. Worsening metabolic acidosis. 3. Hyponatremia related to problem #1. PLAN: 1. The patient is at the point that he requires renal replacement therapy (hemodialysis). Therefore, we will consult surgery for dialysis access placement. 2. Avoid potentially nephrotoxic agents. 3. Further management will be dependent on the clinical course with dialysis initiation is needed at this point. Job ID: [id number]
[2018-09-07] MEDS ORDERED: Midazolam HCl 2 mg/2 ml Vial ONE (18:23)
--- NOTE | 2018-09-07 18:27 | CON ---
DATE OF CONSULTATION: REASON FOR CONSULT: Need for dialysis access. HISTORY OF PRESENT ILLNESS: Mr. Parry is a 58-year-old man who was admitted to the hospital with malaise, nausea, and fevers. He went to his primary care doctor's office and was found to have a fever and a malodorous right foot with a lot of drainage from his open wound. He was sent to the ER and admitted. He had an x-ray of the leg performed which showed some gas up in the area of the ankle and he was started on IV antibiotics and fluid. He was also found to have worsening renal failure. He has a history of medical noncompliance. He states that he has very little feeling in his feet and has had a nonhealing wound on that foot for well over a year, but it has not been bad until the past week and a half or so. PAST MEDICAL HISTORY: 1. Diabetes. 2. Hypertension. 3. Hyperlipidemia. 4. Noncompliance. PAST SURGICAL HISTORY: Transmetatarsal toe amputations on the right foot with chronic open wound which has been nonhealing and also shoulder surgery and a parathyroid resection for an adenoma. ALLERGIES: HE HAS NO KNOWN DRUG ALLERGIES. MEDICATIONS: Outpatient medications include; 1. Ramipril. 2. Metformin. 3. Hydrochlorothiazide. 4. Vitamin B6. 5. He had other diabetes medications ordered, but has not been taking them. Inpatient medications include; 1. Flagyl. 2. Zosyn and vancomycin, although the Zosyn and vancomycin have been discontinued. 3. Ceftriaxone. 4. Sliding scale insulin. 5. Protonix. 6. Ambien. 7. Zofran. 8. Morphine. 9. Tylenol. SOCIAL HISTORY: The patient does not smoke, drink, or use illicit drugs. REVIEW OF SYSTEMS: Ten-system review of systems is negative except per HPI. He denies any chest pain or shortness of breath or orthopnea. PHYSICAL EXAMINATION: VITAL SIGNS: The patient has had low-grade fevers up to about 99.8 since his admission, heart rate has come down from over 179, respirations 18, 99% saturated on room air, blood pressure 111/54. GENERAL: Reveals an ill-appearing man, in no acute distress. He is not flushed or toxic. He is not jaundiced or icteric. HEENT: Unremarkable. NECK: Supple without lymphadenopathy or thyroid nodules. He has a healed cervical incision. HEART: Regular rate and rhythm without murmurs, rubs, or gallops. LUNGS: Clear to auscultation bilaterally. ABDOMEN: Soft, nontender, and nondistended. EXTREMITIES: Warm. He does not have any ulcerations or abnormalities on his left foot, but he does not have any palpable pedal or popliteal pulses on that side. His right foot is extremely swollen. He has an open wound at the right 4th and 5th metatarsal amputation site which is dressed. He has severe edema up almost to the knee and is quite tender over the calf, but there is no palpable crepitus. He has a normal popliteal pulse and is not tender in the popliteal fossa. I do not appreciate any pedal pulses, but he has quite a bit of edema in his foot. He is quite tender with attempts to palpate pedal pulses also. He has palpable radial pulses bilaterally with good bilateral filling on Bello testing. He has a palpable right cephalic vein in the forearm with an IV in place. He has a thready cephalic vein at the wrist on the left which is not palpable higher up in the arm. NEURO: Severe peripheral neuropathy. Otherwise, no focal deficits. PSYCHIATRIC: Alert and oriented and appropriate. LABORATORY DATA: White count is very high at 25,000. This has not really changed since his admission and expected to go up slightly. He has a left shift and bandemia. Hemoglobin is 7.4, hematocrit 22.8, down slightly from 8.6 and 26 on admission. BUN and creatinine are 95 and 6.9. Potassium is 4.4, bicarb is 10, sodium is 124, and glucoses ranged from 194 to 235. Phosphorus is 6.1 and albumin is 1.9. IMAGING DATA: I reviewed his imaging with Dr. Wilson and there are a few views that include the ankle on the MRI of the foot. On these views, there does appear to be gas and fluid around the tendon sheath and possible abscess. He recommended getting a stat MRI of the lower leg since this could potentially extend up into the leg and since he had tenderness in his calf area. ASSESSMENT AND PLAN: I ordered a stat and it returned consistent with a necrotizing myositis of the calf muscles. I reviewed the images with Dr. Wilson and there is blood gas, fluid, and severe inflammation extending almost all the way up to the knee in the posterior compartment and extending across the anterior compartment through the bulging interosseous septum. Dr. Jay of Podiatry had already put the patient on the schedule for debridement of the foot, but given evidence of a necrotizing infection extending beyond the level of the ankle, I spoke to the patient and recommended above knee amputation. I explained that this infection involves all the muscles which we would normally use to close the below knee amputation and that this is a life-threatening infection and the priority is to get above the level of infection to healthy tissues before it extends further. He does need hemodialysis. I have spoken with his self contained behavior unit teacher and he does not think that this is emergent, so we will defer placement of a dialysis catheter until after we address the source of his sepsis. I have posted him emergently for the operating room for a right above knee amputation. I do not plan to close the wounds, but instead to do dressing changes and antibiotics through the weekend, and if there is no evidence of persistent infection, close the wound at a higher level next week. I would also plan on placing a temporary dialysis catheter sometime tomorrow to begin dialysis and continue this through the weekend as well. Again, if there are no signs of active infection, then we can place a tunneled hemodialysis catheter next week when we take him back to close this above knee amputation. His self contained behavior unit teacher does not feel that his renal function is likely to recover, so he has also requested an AV fistula. Vein mapping has been done and the right cephalic vein appears to be the preferable vessel. This is the only one that I can palpate at the bedside. Unfortunately, he had a peripheral IV in this vein, but asked that be removed and replaced in his hand. Once he has a femoral catheter in, we can use the 3rd port for access as well. The patient has severe anemia which was pre-existing and likely related to his chronic disease and renal failure, but I have ordered 1 unit of blood since he will lose some with his operation. The patient understands and is in agreement with the treatment plan. All of his questions were answered. Job ID: [id number]
[2018-09-07] MEDS ORDERED: Sodium Bicarb 50 MEQ/50 ML Abboject 8.4% SYRINGE ONE ×4 (19:03→19:27)
[2018-09-07] MEDS ORDERED: Sodium Bicarbonate 2.5 MEQ/5 ML VIAL ONE (19:03)
--- NOTE | 2018-09-07 19:06 | EKG ---
Test Reason : Blood Pressure : / mmHG Vent. Rate : 082 BPM Atrial Rate : 082 BPM P-R Int : 220 ms QRS Dur : 188 ms QT Int : 424 ms P-R-T Axes : 024 -59 027 degrees QTc Int : 495 ms Sinus rhythm with 1st degree A-V block Right bundle branch block Left anterior fascicular block Bifascicular block Abnormal ECG When compared with ECG of 06-SEP-2018 00:12, No significant change was found Confirmed by DR. Sangita LEE ([id number]) on 09/07/2018 7:05:32 PM Referred By: DORIAN Confirmed By:DR. Sangita LEE
[2018-09-07 19:46] LABS: Actual Bicarbonate (HCO3a) 17.6 mEq/L (22-28); Base Excess (BEa) -6.8 mEq/L (-2.0 to +3.0); Calcium, Ionized 1.09 mmol/L (1.12-1.30); Hemoglobin (Hb) 8.5 g/dL (14.0-18.0); Potassium - ABG Lab 4.03 mmol/L (3.70-5.30); pH, Arterial 7.37 (7.35-7.45)
[2018-09-07 19:49] LABS: Puncture Site LINE
[2018-09-07] MEDS ORDERED: Norepinephrine 8 MG/0.9% NS 250 ML ONE (20:04)
[2018-09-07] MEDS: metroNIDAZOLE 250 MG in Admixture Fee 2 EACH IVPB SCH (20:13)
--- NOTE | 2018-09-07 20:13 | CON ---
DATE OF CONSULTATION: 09/07/2018 REASON FOR CONSULTATION: Right foot ulcer with inflammatory changes. 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 The patient was treated for a protracted period of time and he has had this ulcer in the bottom aspect of the right lateral forefoot for the past year and a half, which now has developed inflammatory changes. The main reason he showed up here is because of persistent nausea, general malaise, and the patient then was admitted after the findings in the evaluation. No headaches. Some visual blurriness, but not much. No sore throat, odynophagia, dysphagia. No dyspnea or chest pain. No back pain. No diarrhea. Actually he does have a little bit of right upper quadrant tenderness on palpation, but not spontaneously. He voids infrequently. He is a little bit constipated. He does not have much sensation in the lower extremities. 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 He also had an infection in the right shoulder due to MRSA with myositis in the lower back, which resolved with washout of the joint and protracted antimicrobial therapy. ALLERGIES: NONE. SOCIAL HISTORY: Lives in [place] with family. No smoking history. Does not drink alcoholic beverages. FAMILY HISTORY: Type 2 diabetes. MEDICATIONS: Currently on: 1. Glucagon. 2. Insulin. 3. Morphine. 4. Zofran. 5. Protonix. 6. Zosyn. 7. Vancomycin. 8. Ambien. PHYSICAL EXAMINATION: VITAL SIGNS: T-max 99.8, BP 111/54, pulse 79, respirations 18, O2 saturation 99. GENERAL: Does not appear in distress. SKIN: Shows the ulcer at the bottom aspect of the second and third MPJ skin site measuring about 3 x 3 cm. Most of the ulcer has a red tissue at the base, approximately 30% has brownish greenish slough with the tendon appearing at the center. There is some undermining around the edges and there is a thick callus around the ulcer. Not much in terms of erythema. The patient does have erythema though ascending from the midfoot towards the distal aspect of the right leg. As one gets closer to the calf, he starts feeling pain on palpation. No lymphadenopathy. HEENT: Ocular movements conjugate. Pupils are equal. Conjunctivae normal. Nasal passages are patent. Ear exam normal. Oral cavity moist, still quite a few teeth in place with some decay. NECK: Supple. No jugular vein distention. No thyromegaly. LUNGS: Symmetric. Clear breath sounds. HEART: S1, S2 without murmurs. No S3, no S4. ABDOMEN: With hepatomegaly. The liver edge is palpated at 3-4 cm below the right costal margin and there is some tenderness associated with it. No bladder distention. No splenomegaly. No ascites. EXTREMITIES: He is able to move extremities with some limitations. The pulses are 1+ in popliteals and 1+ in dorsalis pedis. Cap refill is normal. NEUROLOGICAL: He is awake, oriented. Good recollection. Speech appears to be normal. Follows commands. LABORATORY DATA: White cell count was 21,000, now it is 25,000, hemoglobin is 8.6, and 7.4, MCV 83, platelets 292 with 17% bands, which is about the same as on admission. Chemistry with sodium 124 is about the same as on admission, creatinine 6.90. Baseline creatinine was 0.96 on August 2016. Calcium 8.1, phosphorus 6.1, total bilirubin 0.5, AST 18, ALT 16, alkaline phosphatase 171, albumin 1.9. Urinalysis with marked proteinuria. Microbiology with Morganella morganii, Bacteroides fragilis. MRI of the right lower extremity showed inflammatory changes with osteomyelitis of the 2nd, 3rd, and 4th metatarsals with ascending infection with tenosynovitis, all the way to the malleolus. It may be even higher than that, but the images did not include the mid aspect of the right leg. In view of the tenderness, it is possible that there is extension of the infection further up. There might be an abscess around the medial malleolus. ASSESSMENT: Type 2 diabetes with severe neuropathy, previous partial amputations, now with chronic ulcer with development of an aggressive inflammatory process ascending through the foot towards the distal right leg with tenosynovitis, small abscesses, likely myositis as well. The patient has worsening renal function and he is bacteremic with Bacteroides fragilis from the foot infection in addition to Morganella among other pathogens. The patient will likely require a right below-knee amputation and continue treating with either Zosyn and vancomycin or switch him to Rocephin and Flagyl. Those culture results are final so I think we are safe in switching him to Rocephin and Flagyl, but again I do not think that limited debridement will suffice to cure this infection and he will be left with a large area of wound that will probably have a hard time healing. Job ID: [id number] [facility]
[2018-09-07] MEDS ORDERED: Albumin 25% 25 GM/100 ML BOT IVPB SCH (20:30)
[2018-09-07] MEDS ORDERED: Ventilator Sedation Protocol 1 EACH FS ONE (20:30)
[2018-09-07] MEDS ORDERED: Hydrocortisone Sod Succ/PF 100 mg/2 ml Vial IVP SCH (20:30)
[2018-09-07] MEDS ORDERED: Vasopressin 40 UNIT, Admixture Fee 1 EACH in Sodium Chloride 0.9% 100 ML IV SCH (20:30)
[2018-09-07] MEDS ORDERED: Sodium Chloride 0.9% 1,000 ML IV SCH (20:30)
[2018-09-07] MEDS ORDERED: Propofol BOLUS 1,000 MG/100 ML VIAL IV PRN (20:39)
[2018-09-07] MEDS ORDERED: DISCONTINUE PREVIOUS NARCOTIC PAIN MEDICATIONS AND BENZODIAZEPINES FS SCH (20:39)
[2018-09-07] MEDS ORDERED: Morphine 2 MG/ML SYRINGE SLOW IVP PRN (20:39)
[2018-09-07] MEDS ORDERED: DOPamine 400 MG/D5W 250 ML 250 ML ONE (20:44)
[2018-09-07] MEDS ORDERED: Sodium Bicarbonate 150 MEQ, Admixture Fee 1 EACH in Dextrose 5% in Water 1,000 ML IV SCH (21:00)
--- NOTE | 2018-09-07 21:10 | PDOC.GSPN ---
Surgery Progress Note: Subj - Subjective Narrative: Patient underwent guillotine emergent right above-knee amputation earlier today. He had hemodynamic instability and required chest compressions twice in the operating room and is currently in critical condition on pressors in the ICU. Dr. Kaur and Dr. Red are consulting. Currently he is too unstable to undergo hemodialysis but he does have a dialysis catheter in place. I have spoken to his and son and mother regarding the events of the day and his current condition and they understand the seriousness of the situation. Surgery Progress Note: Obj - Vital signs Vital signs: Vital Signs - Most Recent Temp Pulse Resp BP Pulse Ox 98.8 F 146 H 18 98/78 99 09/07/18 11:16 09/07/18 19:52 09/07/18 11:16 09/07/18 19:52 09/07/18 11:16 Surgery Progress Note: Results - Labs Result Diagrams: 09/07/18 07:12 09/07/18 07:12 Lab results: Laboratory Results - last 24 hr 09/04/18 09/07/18 09/07/18 12:45 07:12 11:20 Neutrophils % (Manual) 81 H Band Neuts % (Manual) 17 H Lymphocytes % (Manual) 1 L Metamyelocytes % (Man) 1 H Neutrophils # Not Reportable Lymphocytes # Not Reportable Plt Morphology Comment Appears Adequate Polychromasia SLIGHT = 2-3 cells Specimen Type Puncture Site Bicarbonate Actual ABG pH ABG pCO2 ABG pO2 ABG O2 Sat Calc/Heather ABG O2 Content ABG Base Excess ABG Hematocrit ABG Hemoglobin ABG Oxyhemoglobin ABG Carboxyhemoglobin ABG Methemoglobin ABG Deoxyhemoglobin A-a O2 Gradient Sodium Potassium Chloride Ionized Calcium Mode of Support Mechanical Rate Inspired O2 Tidal Volume Pressure Support PEEP or CPAP POC Glucose 235 H Blood Type O POSITIVE Antibody Screen NEGATIVE Crossmatch See Detail 09/07/18 09/07/18 19:44 20:15 Neutrophils % (Manual) Band Neuts % (Manual) Lymphocytes % (Manual) Metamyelocytes % (Man) Neutrophils # Lymphocytes # Plt Morphology Comment Polychromasia Specimen Type ART Puncture Site LINE Bicarbonate Actual 17.6 L ABG pH 7.37 ABG pCO2 31.0 L ABG pO2 166.0 H ABG O2 Sat Calc/Heather 99.3 H ABG O2 Content 12.1 L ABG Base Excess -6.8 L ABG Hematocrit 25.0 L ABG Hemoglobin 8.5 L ABG Oxyhemoglobin 98.0 ABG Carboxyhemoglobin 1.0 ABG Methemoglobin 0.30 ABG Deoxyhemoglobin 0.7 A-a O2 Gradient 508.250 H Sodium 133 L Potassium 4.03 Chloride 98 Ionized Calcium 1.09 L Mode of Support SIMV Mechanical Rate 30 Inspired O2 100 Tidal Volume 550 Pressure Support 10 PEEP or CPAP 5.0 POC Glucose Blood Type Antibody Screen Crossmatch See Detail
[2018-09-07 21:52] LABS: Actual Bicarbonate (HCO3a) 10.3 mEq/L (22-28); Base Excess (BEa) -12.5 mEq/L (-2.0 to +3.0); Calcium, Ionized 1.02 mmol/L (1.12-1.30); Carboxyhemoglobin (COHb) 0.6 gm% (0.0-3.0); Hemoglobin (Hb) 8.6 g/dL (14.0-18.0); O2 Tension (PaO2) 311.1 mmHg (80.0-100.0); Potassium - ABG Lab 4.72 mmol/L (3.70-5.30); pH, Arterial 7.41 (7.35-7.45)
[2018-09-07] MEDS ORDERED: WATER IVPB SCH (22:00)
[2018-09-07] MEDS ORDERED: EPINEPHRINE IVPB SCH (22:00)
[2018-09-07] MEDS ORDERED: DEXTROSE IVPB SCH (22:00)
[2018-09-07] MEDS ORDERED: ADMIXTURE FEE IVPB SCH (22:00)
[2018-09-07 22:01] LABS: CO2 Tension 16.6 mmHg (35.0-45.0); Puncture Site LINE
--- NOTE | 2018-09-07 22:43 | CON ---
DATE OF CONSULTATION: 09/07/2018 INDICATION FOR CONSULTATION: A 58-year-old gentleman who is status post a right BKA due to sepsis and necrotizing myositis. He was in the operating room today. He was planned to undergo a dialysis fistula due to renal failure and was noted to have right lower extremity large infection with what appeared to be gaseous formation in the muscles and was opted to do an amputation of the patient. He earlier was seen in the primary care physician's office this week. He was found to have a temperature of 101 with chills and fever, was sent to the emergency room, was admitted to the hospital, was started on IV antibiotics, has been seen by consultations, then at this time, we are being asked to see him after he coded in the operating room twice today. He is now on the ventilator. He is in the intensive care unit. He is on Levophed due to hypotension. He also was tachycardiac. In the operating room, apparently he dropped the heart rate as well as blood pressure. At this time, the blood pressure is improved, is in the 90s systolically on fluid replacement as well as pressure support. PAST MEDICAL HISTORY: Significant for hypertension, diabetes, noncompliance with medications. He has had a parathyroid surgery for an adenoma. He has had right shoulder surgery due to sepsis. A right foot partial amputation is also due to osteomyelitis and infections. He has a history of peripheral neuropathy, myositis in the spine, MRSA of the right shoulder which is septic. He has had hypothyroidism. ALLERGIES: NONE. MEDICATIONS: Include 1. Ramipril. 2. Metformin. 3. Hydrochlorothiazide. 4. Vitamin B6. 5. Diabetic medications, which he has not been taking in the hospital. He has been placed on 1. Glucagon. 2. Insulin. 3. Morphine. 4. Zofran. 5. Zosyn. 6. Vancomycin. 7. Ambien. SOCIAL HISTORY: He is . He has no alcohol or tobacco abuse. FAMILY HISTORY: Noncontributory. REVIEW OF SYSTEMS: Not obtainable at this time, the patient is on the ventilator. PHYSICAL EXAMINATION: GENERAL: Reveals a middle-aged gentleman, who appears to be obviously septic. VITAL SIGNS: Blood pressure 97/53 after being given Levophed and fluid replacement. Heart rates in the 130s to 140s, appears to be sinus tach. Previous EKG did show a right bundle-branch block. HEENT: Show head to be normocephalic and atraumatic. Carotid pulses are present, not any bruits. CHEST: Actually clear to auscultation anteriorly. He is on the ventilator. CARDIOVASCULAR: He has a tachycardia. Difficult to determine whether or not there is any S3 or S4 due to tachycardia. Did not hear any gross murmurs. ABDOMEN: He does have a right upper quadrant mass which may be enlarged gallbladder, cannot determine whether this is tender or not, otherwise bowel sounds are present. EXTREMITIES: Show no clubbing or cyanosis. He has a right AKA of the left foot. I did not feel any pulses, however, they are present by Doppler. NEUROLOGIC: The patient is sedated. IMAGING: EKG shows what appears to be sinus tachycardia. Previous EKG shows a right bundle-branch block. No acute ST-segment changes are noted. LABORATORY DATA: Show a hemoglobin of 7.4, hematocrit 22.8, WBC of 25.4 with platelet count 292,000, 17 bands. Sodium is 124, potassium is 4.4, creatinine is 6.9 with a BUN of 95, blood sugars 194-235, phosphorus was 6.1. Last ABG shows a pH of 7.37, however, in the OR pH was down to 7.0. His pCO2 was 31 with PO2 166 now and O2 saturation 99.3%. IMPRESSION: 1. Acute sepsis in this gentleman due to a right infected leg. We will continue antibiotics, pressure support, and IV fluid replacement. 2. History of normal ejection fraction in the past. We will obtain echocardiogram to determine whether or not ejection fraction is changed. We will continue to give IV fluids regardless and pressure support. 3. Diabetes, dealt with by the primary care service. 4. Hypertension. This is stable at this time. Obviously, he has sepsis. We will be more than happy to continue to follow the patient with you. He was tachycardic and most likely this is all related to his sepsis. We will try to control the underlying problem and hopefully the heart rate will improve. He does appear to have sinus tach at this time and hypotension all associated with his sepsis. Job ID: [id number] [facility]
[2018-09-07] MEDS ORDERED: Norepinephrine 8 MG/250 ML BAG IVPB PRN (23:02)
[2018-09-07] MEDS: fentaNYL Citrate/PF 2,000 MCG in Sodium Chloride 0.9% 60 ML IV SCH (23:21)
[2018-09-08] MEDS: metroNIDAZOLE 250 MG in Admixture Fee 2 EACH IVPB SCH ×4 (00:30→18:16)
[2018-09-08] MEDS: Albumin 25% 25 GM/100 ML BOT IVPB SCH ×4 (00:30→18:15)
--- NOTE | 2018-09-08 02:10 | CON ---
DATE OF CONSULTATION: 09/08/2018 HISTORY OF PRESENT ILLNESS: Mr. Parry is a 58-year-old male. He apparently presented at noon on the and had foot films showing gas in his foot. He is admitted to the hospital. The general surgeon was consulted for dialysis catheter today. Reviewing records, an MRI yesterday showed fluid and gas up to at least the medial malleolus. Chest x-ray was unremarkable today. He was taken to the operating room by Dr. Quick, after she was consulted for dialysis catheter placement. She examined the patient, realized the patient had gas in his leg, ordered an MRI and then performed an [id number] amputation. He coded in the operating room. I was consulted after the code. PAST MEDICAL HISTORY: Obtained from the medical records. 1. 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 2. He has diabetes. 3. Hypertension. 4. History of toe amputations. 5. History of peripheral neuropathy. 6. History of resected parathyroid adenoma. ALLERGIES: HE HAS NO REPORTED DRUG ALLERGIES. MEDICATIONS: Prior to admission, he is on ramipril, metformin, hydrochlorothiazide, vitamin B6. Apparently, he has not been taking his diabetic medication according Dr. Bright's note. FAMILY HISTORY: Unknown. REVIEW OF SYSTEMS: Not obtainable. PHYSICAL EXAMINATION: GENERAL: He is mechanically ventilated. He has patches over his eyes. VITAL SIGNS: Heart rate is 150, appears to be in sinus rhythm. His blood pressure is 92/47 via arterial line. NECK: Without lymphadenopathy. LUNGS: Clear. HEART: Regular rhythm. ABDOMEN: Soft. EXTREMITIES: Right lower extremity, above the knee is amputated. Left lower extremity is cool. LABORATORY DATA: White count this morning is 25.4, hemoglobin 7.4. He received 1 unit of blood in the OR. He received multiple units of bicarb after his code. His pH is now 7.37, CO2 31, PO2 166. This morning at 07:00; sodium was 124, potassium 4.4, bicarb was 10, BUN was 95, creatinine was 6.9, glucose 194. IMPRESSION: Sepsis secondary to gas gangrene, status post [id number] amputation. He is status post cardiac arrest in the operating room, most likely secondary to metabolic acidosis, acidemia is corrected for now, although he needs aggressive volume resuscitation, pressor support. We will draw a cortisol level and bolus him with steroids. He will receive broad antimicrobial therapy. His prognosis is quite guarded. Critical care time is 35 minutes. Job ID: [id number] [facility]
[2018-09-08] MEDS: Insulin Regular 300 UNITS/3 ML VIAL SC PRN ×4 (03:41→21:29)
[2018-09-08 05:06] LABS: Albumin 2.4 g/dL (3.5-5.0); Anion Gap 29 mmol/L (10-20); BUN (Urea Nitrogen) 96 mg/dL (8.4-25.7); BUN (Urea Nitrogen) 98 mg/dL (8.4-25.7); BUN/Creatinine Ratio 14.75; Calc. Creatinine Clearance 16 mL/min (70-130); Calcium 7.8 mg/dL (7.8-10.44); Carbon Dioxide 10 mmol/L (22-29); Chloride 98 mmol/L (98-107); Chloride 99 mmol/L (98-107); Estimated GFR-MDRD 9; Glucose 373 mg/dL (70-105); Glucose 375 mg/dL (70-105); Phosphorus 7.2 mg/dL (2.3-4.7); Potassium 4.3 mmol/L (3.5-5.1); Potassium 4.4 mmol/L (3.5-5.1); Sodium 132 mmol/L (136-145); Sodium 134 mmol/L (136-145)
[2018-09-08 05:12] LABS: Carbon Dioxide 9 mmol/L (22-29)
[2018-09-08 05:22] LABS: Anisocytosis SLIGHT = 6-15 cells (100X) (0-5/hpf); Band 8 % (5-11); Burr Cells SLIGHT = 2-5 cells (100X) (0-1/hpf); Lymphocytes 4 % (21-51); MDiff Complete? YES; Mean Corpuscular HGB CONC 33.6 g/dL (32.0-36.0); Mean Corpuscular Hemoglobin 28.1 pg (27.0-31.0); Mean Corpuscular Volume 83.6 fL (78.0-98.0); Mean Platelet Volume 7.3 fL (7.4-10.4); Metamyelocyte 2 % (0-0); Monocytes 1 % (0-10); Myelocyte 3 % (0-0); Neutrophil 81 % (42-75); Nucleated RBC 1 % (0); Platelet Count 302 thou/uL (130-400); Platelet Morphology Comment Appears Adequate; RBC Distribution Width 13.8 % (11.5-14.5); Reactive Lymphocytes 1 % (0-10); Red Blood Cell (RBC) Count 3.22 mill/uL (4.70-6.10)
[2018-09-08 07:04] LABS: Actual Bicarbonate (HCO3a) 9.3 mEq/L (22-28); Base Excess (BEa) -14.6 mEq/L (-2.0 to +3.0); Calcium, Ionized 0.99 mmol/L (1.12-1.30); Carboxyhemoglobin (COHb) 0.5 gm% (0.0-3.0); Hemoglobin (Hb) 9.1 g/dL (14.0-18.0); O2 Tension (PaO2) 238.5 mmHg (80.0-100.0); Potassium - ABG Lab 4.14 mmol/L (3.70-5.30); pH, Arterial 7.34 (7.35-7.45)
[2018-09-08 07:07] LABS: ALV-art Gradient 95.875 (0-20); CO2 Tension 17.7 mmHg (35.0-45.0); Puncture Site LINE
--- NOTE | 2018-09-08 08:10 | OP ---
DATE OF PROCEDURE: 09/07/2018 PROCEDURES PERFORMED: Right above-knee guillotine amputation, placement of left femoral Trialysis catheter and left femoral art line. PREOPERATIVE DIAGNOSIS: Necrotizing myositis of the right leg. POSTOPERATIVE DIAGNOSES: Necrotizing myositis of the right leg, hemodynamic instability and brief cardiac arrest. INDICATIONS FOR PROCEDURE: Mr. Parry is a 58-year-old man who presented septic to the hospital. He was initially evaluated by Podiatry and posted for OR tonight for debridement of right 4th and 5th metatarsal bones. I was consulted to see him for a dialysis catheter, became concerned about the extent of the infection on the right leg. He was quite tender in the calf. An MRI was ordered and this showed gas and fluid and abnormal inflammation basically all of the calf muscles, almost to the level of the knee. I recommended proceeding emergently to the operating room for [id number] to try to contain the infection. Originally, the plan was to place a dialysis catheter the following day after the patient's sepsis had subsided somewhat. DESCRIPTION OF PROCEDURE: After informed consent was obtained and appropriate preoperative antibiotics continued, the patient was taken to the operating room. He was placed in supine position and general endotracheal anesthesia was administered. He was prepped and draped excluding the foot and the plantar ulcer from the field. A transverse incision was made just above the level of the knee and dissection carried down anteriorly to the femur which was cleared circumferentially. A Gigli saw was placed behind the femur and the femur was transected. The palpable tibial artery and vein were identified, clamped and ligated. The remainder of the soft tissues were divided using Bovie electrocautery. The wound was irrigated and hemostasis obtained using Bovie electrocautery. The soft tissues were closed over the popliteal artery stumps and sterile gauze dressings were placed. The patient had multiple runs of alternating tachycardia and bradycardia throughout the case, but at the completion of the case, he had a severe episode of bradycardia and a pulse could not be felt. Therefore, chest compressions were administered and the patient was given epinephrine and fluid. Due to inadequate peripheral access, the decision was made to place the femoral Trialysis catheter to allow better access. Anesthesia also placed an external jugular IV as the patient was being prepped for his femoral Trialysis catheter. By this point, he had return of pulse and was being monitored closely. He was also given bicarb since he had pre-existing acidosis. The right leg was prepped and draped in standard sterile fashion. Sterile ultrasound probe used to identify the patent compressible left femoral vein. This was accessed under direct ultrasound guidance and a wire threaded easily and was confirmed to be within the patent compressed vein. A skin incision was made in the tract was dilated over the wire. The Trialysis catheter was placed over the wire and the wire was withdrawn. All three ports easily aspirated dark nonpulsatile venous blood and easily flushed without resistance. The Trialysis catheter was secured to the skin and a femoral art line was then placed again using direct sterile ultrasound guidance and Seldinger technique. This was also secured to the skin and secured to the art line tubing. During this whole process, a 2nd episode of chest compressions was briefly performed, but again the patient had return of pulse. ABG drawn from the art line showed persistent acidosis, so additional bicarbonate was administered and the patient was transferred to ICU for further resuscitation. Pulmonary and Cardiology were consulted to assess. Estimated blood loss was minimal. Specimen is right leg. After the patient was more stable and all of the wounds were sterilely dressed, the calf and ankle were opened on the back table and cultures were sent from both levels. There was no evidence of necrosis of the muscle, but there was some murky cloudy opaque fluid expressed from the wound consistent with infection. Job ID: [id number]
--- NOTE | 2018-09-08 08:12 | RAD ---
CHEST 1 VIEW: INDICATION: History of intubation. COMPARISON: Prior exam dated 09/07/2018. FINDINGS: ET tube tip is seen at the thoracic inlet. Low lung volumes accentuate the cardiac silhouette and pu lmonary vasculature. There is increased opacity within the right lung base which may reflect atelect asis or aspiration. Increased opacity is also present in the left lung base also could reflect anoth er process. Cardiomegaly is similar-appearing. IMPRESSION: 1. Hypoventilation with airspace opacities may reflect atelectasis or aspiration. Continued followu p is recommended. 2. Stable cardiomegaly. 3. Endotracheal tube tip is seen at the level of the thoracic inlet. POS: BH
[2018-09-08] MEDS ORDERED: Insulin Glargine 15 UNITS in Pre-Filled Syringe 1 EACH SC SCH (10:15)
--- NOTE | 2018-09-08 11:10 | PRG ---
DATE OF SERVICE: 09/08/2018 SUBJECTIVE: The patient was seen and examined on life support with the following vital signs. OBJECTIVE: VITAL SIGNS: Blood pressure 120/64, pulse 105, respiratory rate of 280. HEENT: Remarkable for endotracheal tube in place. CARDIOVASCULAR SYSTEM: First and second heart sounds. RESPIRATORY SYSTEM: Revealed vented sounds. DIGESTIVE SYSTEM: Revealed a benign abdomen. EXTREMITIES: Showed evidence of recent AKA. LABORATORY INVESTIGATION: Showed a white count of 31,000, hemoglobin 9. Chemistry showed a bicarb of 9, creatinine 6.51, BUN of 96, sodium 132, phosphorus 7.2. IMPRESSION: 1. Acute on chronic kidney disease to the point of requiring renal replacement therapy. 2. Severe metabolic acidosis. 3. Labile hemodynamics. 4. Hyperphosphatemia in the context of problem #1. PLAN: 1. The patient to be initiated on dialysis today with low temperature due to labile hemodynamics. Hopefully, improvement of the patient's acid-base status may improve the hemodynamics of this patient to the point of coming off pressors. 2. Renally dose all medications and avoid potentially nephrotoxic agents. 3. We will continue with daily dialysis for now. 4. Further management will be dependent on the clinical course. Job ID: [id number]
--- NOTE | 2018-09-08 11:24 | PRG ---
DATE OF SERVICE: 09/08/2018 SUBJECTIVE: Mr. Parry actually awakens, moves all extremities and is in no distress. OBJECTIVE: VITAL SIGNS: Heart rate in the 90s, blood pressure 120/65, still on low dose of epinephrine, respiratory rate is per mechanical ventilation. He will be dialyzed today. LUNGS: Clear anteriorly. HEART: Regular rhythm. ABDOMEN: Soft. EXTREMITIES: Bandaged. He apparently had guillotine amputation with no closure. IMAGING: Chest radiograph shows patchy atelectasis. Surprisingly, he does not have terrible pulmonary edema in spite of a 7 L volume resuscitation yesterday. LABORATORY DATA: White count is 31, hemoglobin 9, platelets 302. Sodium 134, potassium 4.4, chloride 99, bicarb 10, BUN 94, creatinine 6.94. He remains on the bicarb drip. He will have dialysis for filtering today. His IV fluids will be cut back to TKO once he is off pressors. He will have a long-acting insulin started in addition to his sliding scale. He is currently not weanable because of his acid-base disorder, but he might be within a day or two. There is no family in the room when I rounded on him. His anemia is likely anemia of chronic disease, possibly mixed with iron deficiency and he does not need transfusion at this point in time. CRITICAL CARE TIME: 30 minutes. Job ID: [id number]
--- NOTE | 2018-09-08 12:42 | PDOC.CTH ---
Cardiology Progress Note - Subjective The pt seen and examined. No overnight events. According Dr Kaur's today note , the pt responded. On Vent with vent sedation - Objective Vital Signs Temp Pulse Resp BP 09/08/18 10:35 93 09/08/18 06:42 105 H 09/08/18 06:00 30 H 09/08/18 04:00 98.2 F 30 H 09/08/18 02:32 103 H 110/67 09/08/18 02:00 30 H Admit Weight 197 lb 9 oz Weight 197 lb 9 oz 09/07/18 09/08/18 09/09/18 06:59 06:59 06:59 Intake Total 3680 7298.0 Output Total 675 190 Balance 3005 7108.0 - Physical Examination Lungs: other: (diminished at bases) Heart: RRR Abdomen: soft Extremities: other: (generalized edema) - Telemetry Telemetry Rhythm: SR - Labs Result Diagrams: 09/08/18 03:30 09/08/18 03:30 - Assessment/Plan 1. S/p Cardiac arrest @ OR - due to acidosis,sepsis induced. 2. Hypotension 2/2 sepsis - Off Levephed and Vasopresson, but low dose of Epi drip which may wean off today; 3. ESRD - on HD 4. 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 5. DM - 6. Hypotyrodism - 7. Non-compliance of med 8. Chronic Anemia MAR reviewed * Echo on 09/07/2018 with EF 55-60%, severe ERV, dilated LA, and mod ERA Pt. seen and eval. by me. I agree with the A/P by the [employer]. The cardiac staus has stabalized for the most part. the EF is WNL. The RV is dilated , this can be investigated at a later time. Review of Systems - Review of Systems Constitutional: reports: see HPI
[2018-09-08] MEDS: Meropenem 1 GM in Sodium Chloride 0.9% 100 ML IVPB SCH (13:43)
[2018-09-08] MEDS: fentaNYL Citrate/PF 2,000 MCG in Sodium Chloride 0.9% 60 ML IV SCH (13:44)
[2018-09-08] MEDS: Propofol 1,000 MG/100 ML VIAL IV PRN (16:30)
--- NOTE | 2018-09-08 17:47 | PDOC.GSPN ---
Surgery Progress Note: Subj - Subjective Narrative: Patient was alert and answering yes no questions when I rounded on him this morning. He was still on low doses of epinephrine but was being weaned off. His curator of education was planning on dialyzing him, and pulmonary was planning on leaving him on the vent for the day. I explained to him the intraoperative events and why he was in the ICU on the ventilator. He seemed to understand. His wound was not bleeding to the dressings. Wound care is going to be doing wet -to-dry dressings daily. There are Gram-positive cocci on the wound cultures but no organism identified yet. Given the presence of gas-forming organisms, I had been considering hyperbaric therapy, but obviously he cannot go down for that at this time. We will continue with antibiotics and dressing changes. His white count is still up he did receive steroids and had a rather stimulating OR trip. I think this is likely reactive. Dr. Ballesteros will be following him over the weekend. If he is stable on Tuesday, I will consider taking him back to the operating room for AKA closure and tunneled catheter on Tuesday. Surgery Progress Note: Obj - Vital signs Vital signs: Vital Signs - Most Recent Temp Pulse Resp BP Pulse Ox 98.2 F 86 30 H 110/67 100 09/08/18 04:00 09/08/18 14:45 09/08/18 06:00 09/08/18 02:32 09/07/18 19:32 Surgery Progress Note: Results - Labs Result Diagrams: 09/08/18 03:30 09/08/18 03:30 Lab results: Laboratory Results - last 24 hr 09/07/18 09/08/18 09/08/18 20:15 06:48 11:20 Specimen Type ARTERIAL Puncture Site LINE Bicarbonate Actual 9.3 L ABG pH 7.34 L ABG pCO2 17.7 L* ABG pO2 238.5 H ABG O2 Sat Calc/Heather 99.6 H ABG O2 Content 13.2 L ABG Base Excess -14.6 L ABG Hematocrit 27.0 L ABG Hemoglobin 9.1 L ABG Oxyhemoglobin 98.8 H ABG Carboxyhemoglobin 0.5 ABG Methemoglobin 0.30 ABG Deoxyhemoglobin 0.4 A-a O2 Gradient 95.875 H Sodium 129 L Potassium 4.14 Chloride 97 L Ionized Calcium 0.99 L Mode of Support SIMV % Minute Volume 18.8 Mechanical Rate 30 Inspired O2 50 Tidal Volume 500 Spontaneous Tidal Vol 523 Peak Inspir Pressure 28 Pressure Support 10 PEEP or CPAP 10.0 POC Glucose 369 H Crossmatch See Detail 09/08/18 16:34 Specimen Type Puncture Site Bicarbonate Actual ABG pH ABG pCO2 ABG pO2 ABG O2 Sat Calc/Heather ABG O2 Content ABG Base Excess ABG Hematocrit ABG Hemoglobin ABG Oxyhemoglobin ABG Carboxyhemoglobin ABG Methemoglobin ABG Deoxyhemoglobin A-a O2 Gradient Sodium Potassium Chloride Ionized Calcium Mode of Support % Minute Volume Mechanical Rate Inspired O2 Tidal Volume Spontaneous Tidal Vol Peak Inspir Pressure Pressure Support PEEP or CPAP POC Glucose 388 H Crossmatch
[2018-09-08] MEDS: Heparin 5,000 UNITS/ML VIAL SC SCH (21:25)
[2018-09-09] MEDS: fentaNYL Citrate/PF 2,000 MCG in Sodium Chloride 0.9% 60 ML IV SCH ×2 (00:52→11:09)
[2018-09-09] MEDS: Albumin 25% 25 GM/100 ML BOT IVPB SCH (00:54)
[2018-09-09] MEDS: metroNIDAZOLE 250 MG in Admixture Fee 2 EACH IVPB SCH ×4 (01:25→19:04)
[2018-09-09 03:34] LABS: Band 11 % (5-11); Hemoglobin 6.5 g/dL (14.0-18.0); Lymphocytes 5 % (21-51); MDiff Complete? YES; Mean Corpuscular HGB CONC 34.5 g/dL (32.0-36.0); Mean Corpuscular Volume 81.3 fL (78.0-98.0); Metamyelocyte 1 % (0-0); Monocytes 4 % (0-10); Neutrophil 79 % (42-75); Platelet Count 212 thou/uL (130-400); Platelet Morphology Comment Appears Adequate; RBC Distribution Width 13.7 % (11.5-14.5); Red Blood Cell (RBC) Count 2.31 mill/uL (4.70-6.10); White Blood Cell (WBC) Count 17.5 thou/uL (4.8-10.8)
[2018-09-09 03:46] LABS: Albumin 2.7 g/dL (3.5-5.0); Anion Gap 17 mmol/L (10-20); BUN (Urea Nitrogen) 103 mg/dL (8.4-25.7); BUN/Creatinine Ratio 14.55; Calc. Creatinine Clearance 15 mL/min (70-130); Calcium 8.5 mg/dL (7.8-10.44); Carbon Dioxide 20 mmol/L (22-29); Chloride 101 mmol/L (98-107); Estimated GFR-MDRD 8; Glucose 251 mg/dL (70-105); Phosphorus 6.1 mg/dL (2.3-4.7); Potassium 3.3 mmol/L (3.5-5.1); Sodium 135 mmol/L (136-145)
[2018-09-09] MEDS: Insulin Regular 300 UNITS/3 ML VIAL SC PRN ×2 (06:35→11:34)
[2018-09-09 06:36] LABS: Actual Bicarbonate (HCO3a) 19.4 mEq/L (22-28); Base Excess (BEa) -1.5 mEq/L (-2.0 to +3.0); Calcium, Ionized 1.03 mmol/L (1.12-1.30); Hemoglobin (Hb) 6.2 g/dL (14.0-18.0); O2 Tension (PaO2) 138.4 mmHg (80.0-100.0); Potassium - ABG Lab 3.18 mmol/L (3.70-5.30)
[2018-09-09 06:50] LABS: CO2 Tension 18.8 mmHg (35.0-45.0); pH, Arterial 7.63 (7.35-7.45)
[2018-09-09 06:51] LABS: Puncture Site ALINE
--- NOTE | 2018-09-09 08:01 | RAD ---
PORTABLE CHEST: HISTORY: Hospital CCU followup. Shortness of breath. COMPARISON: 09/08/2018. FINDINGS/IMPRESSION: ET tube and NG tube remain in place. Hazy perihilar opacities are seen possibly representing atelect asis and/or mild infiltrate or edema. No significant interval change when compared to yesterday. POS: OFF
--- NOTE | 2018-09-09 08:49 | PDOC.GSPN ---
Surgery Progress Note: Subj - Subjective Narrative: Off pressors Surgery Progress Note: Obj - Vital signs Vital signs: Vital Signs - Most Recent Temp Pulse Resp BP Pulse Ox 98.0 F 75 30 H 170/63 H 98 09/09/18 04:00 09/09/18 06:46 09/09/18 06:00 09/09/18 06:46 09/08/18 20:00 - Physical Exam General: no distress Wound: dressing clean,dry,intact Surgery Progress Note: Results - Labs Result Diagrams: 09/09/18 02:50 09/09/18 02:50 Lab results: Laboratory Results - last 24 hr 09/07/18 09/08/18 09/09/18 20:15 21:30 02:50 WBC RBC Hgb Hct MCV MCH MCHC RDW Plt Count MPV Neutrophils % (Manual) Band Neuts % (Manual) Lymphocytes % (Manual) Monocytes % (Manual) Metamyelocytes % (Man) Plt Morphology Comment Specimen Type Puncture Site Bicarbonate Actual ABG pH ABG pCO2 ABG pO2 ABG O2 Sat Calc/Heather ABG O2 Content ABG Base Excess ABG Hematocrit ABG Hemoglobin ABG Oxyhemoglobin ABG Carboxyhemoglobin ABG Methemoglobin ABG Deoxyhemoglobin A-a O2 Gradient Ionized Calcium Mode of Support % Minute Volume Mechanical Rate Inspired O2 Tidal Volume Pressure Support PEEP or CPAP Sodium 135 L Potassium 3.3 L Chloride 101 Carbon Dioxide 20 L Anion Gap 17 BUN 103 H Creatinine 7.08 H Estimated GFR (MDRD) 8 BUN/Creatinine Ratio 14.55 Glucose 251 H POC Glucose 315 H Calcium 8.5 Phosphorus 6.1 H Albumin 2.7 L Blood Type O POSITIVE Antibody Screen NEGATIVE Crossmatch See Detail 09/09/18 09/09/18 09/09/18 02:50 06:29 06:35 WBC 17.5 H RBC 2.31 L Hgb 6.5 L Hct 18.8 L MCV 81.3 MCH 28.0 MCHC 34.5 RDW 13.7 Plt Count 212 MPV 7.0 L Neutrophils % (Manual) 79 H Band Neuts % (Manual) 11 Lymphocytes % (Manual) 5 L Monocytes % (Manual) 4 Metamyelocytes % (Man) 1 H Plt Morphology Comment Appears Adequate Specimen Type ARTERIAL Puncture Site TASHIA Bicarbonate Actual 19.4 L ABG pH 7.63 H* ABG pCO2 18.8 L* ABG pO2 138.4 H ABG O2 Sat Calc/Heather 98.8 H ABG O2 Content 8.8 L ABG Base Excess -1.5 ABG Hematocrit 18.0 L ABG Hemoglobin 6.2 L ABG Oxyhemoglobin 97.5 ABG Carboxyhemoglobin 1.0 ABG Methemoglobin 0.30 ABG Deoxyhemoglobin 1.2 A-a O2 Gradient 52.000 H Ionized Calcium 1.03 L Mode of Support SIMV % Minute Volume 17.3 Mechanical Rate 30 Inspired O2 30 Tidal Volume 500 Pressure Support 10 PEEP or CPAP 10.0 Sodium 132 L Potassium 3.18 L Chloride 100 Carbon Dioxide Anion Gap BUN Creatinine Estimated GFR (MDRD) BUN/Creatinine Ratio Glucose POC Glucose 265 H Calcium Phosphorus Albumin Blood Type Antibody Screen Crossmatch Surgery Progress Note: A/P - Problem (1) Gas gangrene Current Visit: Yes Code(s): A48.0 - GAS GANGRENE Status: Acute - Plan Plan: Doing better clinically Continue dressing changes
[2018-09-09] MEDS: Heparin 5,000 UNITS/ML VIAL SC SCH ×2 (09:00→21:20)
[2018-09-09] MEDS: Insulin Glargine 15 UNITS in Pre-Filled Syringe 1 EACH SC SCH ×2 (09:00→11:31)
--- NOTE | 2018-09-09 09:46 | EKG ---
Test Reason : Blood Pressure : / mmHG Vent. Rate : 144 BPM Atrial Rate : 144 BPM P-R Int : 000 ms QRS Dur : 158 ms QT Int : 336 ms P-R-T Axes : 000 -82 031 degrees QTc Int : 520 ms Wide QRS tachycardia Left axis deviation Right bundle branch block Inferior ST elevation may represent acute DC Abnormal ECG When compared with ECG of 07-SEP-2018 06:44, Wide QRS tachycardia has replaced Sinus rhythm Vent. rate has increased BY [address] Sangita LEE ([id number]) on 09/09/2018 9:45:58 AM Referred By: RAFY Confirmed By:DR. Sangita LEE
--- NOTE | 2018-09-09 10:07 | PRG ---
DATE OF SERVICE: 09/09/2018 A 35 minutes of critical care time. SUBJECTIVE: The patient remains intubated on mechanical ventilation. He will wake up once sedation is lessened. He is due for dialysis later today. He is also getting transfused today. OBJECTIVE: VITAL SIGNS: His temperature is 98.0, pulse 74, and blood pressure 164/59. Total intake for 24 hours 7298 and output 190. HEENT: Unremarkable. NECK: No JVD. LUNGS: Clear anteriorly. CARDIAC: S1 and S2. Regular. ABDOMEN: Obese, soft, and nontender. EXTREMITIES: Right above the knee amputation. LABORATORY DATA: Sodium 135, potassium 3.3, chloride 101, CO2 of 20, BUN 103, creatinine 7.1, glucose 251, and phosphorus 6.1. White blood cell count 17.5, hematocrit 18.8, and platelet count 212. A pH of 7.63, pCO2 of 18, pO2 of 138 on SIMV rate 30, tidal volume of 500, PEEP 10, pressure support 10, and FiO2 of 30%. His chest x-ray demonstrates fairly clear lung stone bilaterally. ASSESSMENT: 1. Acute respiratory failure requiring mechanical ventilation. 2. Severe metabolic acidosis from systemic infection. He has grown out several gram-negative rods from his leg wound and is on appropriate antibiotics for that, managed by Dr. Becerra. 3. Renal failure. PLAN: Dialysis is scheduled for later today. He will also get blood at that time. We will defer extubation until closure of his wound, which will probably be on Tuesday. I have adjusted mechanical ventilation settings. We will have art-line stopped. Job ID: [id number]
[2018-09-09] MEDS ORDERED: Heparin 1,000 UNITS/ML VIAL ONE (11:11)
--- NOTE | 2018-09-09 11:33 | PDOC.CTH ---
Cardiology Progress Note - Subjective Remains sedated and intubated. - Objective Vital Signs Temp Pulse Resp BP 09/09/18 08:58 71 103/48 L 09/09/18 06:46 75 170/63 H 09/09/18 06:00 30 H 09/09/18 04:00 98.0 F 30 H 09/09/18 02:31 81 178/68 H 09/09/18 02:00 30 H 09/09/18 00:00 30 H Admit Weight 197 lb 9 oz Weight 197 lb 9 oz 09/08/18 09/09/18 09/10/18 06:59 06:59 06:59 Intake Total 7298.0 1547.3 Output Total 190 105 Balance 7108.0 1442.3 - Physical Examination General/Neuro: other: (S/I) Neck: no JVD present Lungs: CTA, unlabored respirations Heart: RRR Abdomen: NT/ND Extremities: + edema B (R AKA.) - Telemetry Telemetry Rhythm: NSR - Labs Result Diagrams: 09/09/18 02:50 09/09/18 02:50 - Assessment/Plan 1. S/p Cardiac arrest in OR due to acidosis, sepsis. 2. Septic shock 3. ESRD - on HD 4. 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 5. DM 6. Hypotyrodism 7. Non-compliance of med 8. Anemia PLAN: - Continue supportive care. - No new recs from cardiac perspective.
[2018-09-09] MEDS: Meropenem 1 GM in Sodium Chloride 0.9% 100 ML IVPB SCH (11:44)
[2018-09-09] MEDS: Propofol 1,000 MG/100 ML VIAL IV PRN (12:04)
--- NOTE | 2018-09-09 16:05 | EKG ---
Test Reason : SEPSIS Blood Pressure : / mmHG Vent. Rate : 107 BPM Atrial Rate : 107 BPM P-R Int : 200 ms QRS Dur : 172 ms QT Int : 348 ms P-R-T Axes : 025 -57 013 degrees QTc Int : 464 ms Sinus tachycardia Possible Left atrial enlargement Right bundle branch block Left anterior fascicular block Bifascicular block Left ventricular hypertrophy Abnormal ECG Confirmed by ROSANNA BELL ([id number]), video editor INES CHACON ([id number]) on 09/09/2018 4:04:50 PM Referred By: ARABELLA Confirmed By:ROSANNA BELL
[2018-09-10] MEDS: metroNIDAZOLE 250 MG in Admixture Fee 2 EACH IVPB SCH ×4 (00:37→17:00)
[2018-09-10] MEDS: fentaNYL Citrate/PF 2,000 MCG in Sodium Chloride 0.9% 60 ML IV SCH ×3 (00:38→21:41)
[2018-09-10 05:47] LABS: Band 3 % (5-11); Hemoglobin 7.3 g/dL (14.0-18.0); Hypochromia SLIGHT = 6-15 cells (100X) (0-5/hpf); Lymphocytes 4 % (21-51); MDiff Complete? YES; Mean Corpuscular HGB CONC 34.3 g/dL (32.0-36.0); Mean Corpuscular Hemoglobin 29.4 pg (27.0-31.0); Mean Corpuscular Volume 85.6 fL (78.0-98.0); Mean Platelet Volume 7.4 fL (7.4-10.4); Monocytes 6 % (0-10); Neutrophil 87 % (42-75); Platelet Count 160 thou/uL (130-400); Platelet Morphology Comment Appears Adequate; RBC Distribution Width 13.9 % (11.5-14.5); Red Blood Cell (RBC) Count 2.47 mill/uL (4.70-6.10); White Blood Cell (WBC) Count 20.8 thou/uL (4.8-10.8)
[2018-09-10 05:52] LABS: Anion Gap 17 mmol/L (10-20); BUN (Urea Nitrogen) 71 mg/dL (8.4-25.7); Calc. Creatinine Clearance 19 mL/min (70-130); Calcium 7.6 mg/dL (7.8-10.44); Carbon Dioxide 23 mmol/L (22-29); Chloride 101 mmol/L (98-107); Estimated GFR-MDRD 11; Glucose 120 mg/dL (70-105); Potassium 3.5 mmol/L (3.5-5.1); Sodium 137 mmol/L (136-145)
[2018-09-10 07:39] LABS: Actual Bicarbonate (HCO3a) 23.4 mEq/L (22-28); Base Excess (BEa) -0.8 mEq/L (-2.0 to +3.0); CO2 Tension 36.6 mmHg (35.0-45.0); Calcium, Ionized 1.03 mmol/L (1.12-1.30); Hemoglobin (Hb) 7.8 g/dL (14.0-18.0); O2 Tension (PaO2) 109.6 mmHg (80.0-100.0); Potassium - ABG Lab 3.79 mmol/L (3.70-5.30); Puncture Site LB; pH, Arterial 7.42 (7.35-7.45)
--- NOTE | 2018-09-10 07:44 | PDOC.GSPN ---
Surgery Progress Note: Subj - Subjective Narrative: Having strange alterations in pulse this am. I pulled trialysis catheter back an inch yesterday to facilitate dialysis. Surgery Progress Note: Obj - Vital signs Vital signs: Vital Signs - Most Recent Temp Pulse Resp BP Pulse Ox 98.2 F 83 16 121/70 100 09/10/18 04:00 09/10/18 07:14 09/10/18 06:00 09/10/18 07:14 09/09/18 20:00 - Physical Exam Wound: other (the wound are dressed. No significant bleeding) Surgery Progress Note: Results - Labs Result Diagrams: 09/10/18 05:09 09/10/18 05:09 Lab results: Laboratory Results - last 24 hr 09/10/18 09/10/18 09/10/18 05:08 05:09 05:09 WBC 20.8 H RBC 2.47 L Hgb 7.3 L Hct 21.1 L MCV 85.6 MCH 29.4 MCHC 34.3 RDW 13.9 Plt Count 160 MPV 7.4 Neutrophils % (Manual) 87 H Band Neuts % (Manual) 3 L Lymphocytes % (Manual) 4 L Monocytes % (Manual) 6 Hypochromia SLIGHT = 6-15 cells Plt Morphology Comment Appears Adequate Specimen Type Puncture Site Bicarbonate Actual ABG pH ABG pCO2 ABG pO2 ABG O2 Sat Calc/Heather ABG O2 Content ABG Base Excess ABG Hematocrit ABG Hemoglobin ABG Oxyhemoglobin ABG Carboxyhemoglobin ABG Methemoglobin ABG Deoxyhemoglobin Bello Test A-a O2 Gradient Ionized Calcium Mode of Support % Minute Volume Mechanical Rate Inspired O2 Tidal Volume Pressure Support PEEP or CPAP Sodium 137 Potassium 3.5 Chloride 101 Carbon Dioxide 23 Anion Gap 17 BUN 71 H Creatinine 5.43 H Estimated GFR (MDRD) 11 Glucose 120 H POC Glucose 126 H Calcium 7.6 L 09/10/18 07:27 WBC RBC Hgb Hct MCV MCH MCHC RDW Plt Count MPV Neutrophils % (Manual) Band Neuts % (Manual) Lymphocytes % (Manual) Monocytes % (Manual) Hypochromia Plt Morphology Comment Specimen Type ARTERIAL Puncture Site LB Bicarbonate Actual 23.4 ABG pH 7.42 ABG pCO2 36.6 ABG pO2 109.6 H ABG O2 Sat Calc/Heather 97.9 ABG O2 Content 10.8 L ABG Base Excess -0.8 ABG Hematocrit 23.0 L ABG Hemoglobin 7.8 L ABG Oxyhemoglobin 96.6 ABG Carboxyhemoglobin 1.0 ABG Methemoglobin 0.30 ABG Deoxyhemoglobin 2.1 Bello Test POSITIVE A-a O2 Gradient 58.550 H Ionized Calcium 1.03 L Mode of Support SIMV % Minute Volume 9.9 Mechanical Rate 16 Inspired O2 30 Tidal Volume 500 Pressure Support 10 PEEP or CPAP 5.0 Sodium 134 L Potassium 3.79 Chloride 102 Carbon Dioxide Anion Gap BUN Creatinine Estimated GFR (MDRD) Glucose POC Glucose Calcium Surgery Progress Note: A/P - Problem (1) Gas gangrene Current Visit: Yes Code(s): A48.0 - GAS GANGRENE Status: Acute - Plan Plan: continue dressing changes -held heparin given drop in Hgb.
--- NOTE | 2018-09-10 08:03 | RAD ---
PORTABLE CHEST: HISTORY: CCU followup. On ventilator. COMPARISON: 09/09/2018. FINDINGS: ET tube and NG tube are unchanged. Heart size is mildly prominent but stable. Opacification of the left lung base obscures the left hemidiaphragm. Mild hazy perihilar infiltrates again noted. Upper lung zones are well aerated and clear. IMPRESSION: No significant change from yesterday. POS: OFF
[2018-09-10] MEDS: Heparin 5,000 UNITS/ML VIAL SC SCH (08:52)
[2018-09-10] MEDS: Insulin Glargine 15 UNITS in Pre-Filled Syringe 1 EACH SC SCH (09:00)
--- NOTE | 2018-09-10 10:25 | PRG ---
DATE OF SERVICE: 09/10/2018 SUBJECTIVE: Mr. Parry remains intubated on mechanical ventilation. He had to be placed on Levophed this morning because of hypotension. OBJECTIVE: VITAL SIGNS: His temperature is 98.2, pulse 93, blood pressure 144/70, O2 saturation 99%. Intake for 24 hours 1592, output 48 plus whatever was taken from dialysis yesterday. HEENT: He is endotracheally intubated. Also, he has an esophageal probe in place. NECK: No JVD. CHEST: Clear anteriorly. CARDIAC: S1 and S2, regular. ABDOMEN: Soft, obese, nontender. EXTREMITIES: Right [id number]-[id number]-krbp amputation. Left groin femoral dialysis catheter. LABORATORY DATA: White blood cell count 20.8, hematocrit 21.1, and platelet count 160. pH 7.42, pCO2 of 36, pO2 of 109 on SIMV rate 16, tidal volume of 500, PEEP 5, pressure support 10, FiO2 of 30%. Sodium 137, potassium 3.5, chloride 101, CO2 of 23, BUN 71, creatinine 5.4, glucose 120. DIAGNOSTIC DATA: Chest x-ray is clear. ASSESSMENT: 1. Acute respiratory failure requiring mechanical ventilation. 2. Status post right leg amputation for gas gangrene. 3. Acute renal failure requiring hemodialysis. PLAN: The patient will be left intubated until after surgical closure tomorrow. His heparin will be held because of bleeding. He may require transfusion again tomorrow. Prognosis remains guarded. He is on Levophed for hypotension. Job ID: [id number]
[2018-09-10] MEDS ORDERED: Heparin 10,000 UNITS/ 10 ML VIAL ONE (11:00)
[2018-09-10] MEDS: Propofol 1,000 MG/100 ML VIAL IV PRN (11:15)
[2018-09-10] MEDS: MEROPENEM 1 GM/50 ML 1 GM in Premix Bag 1 BAG IVPB SCH (11:22)
[2018-09-10] MEDS ORDERED: Epoetin (ESRD) 20,000 UNITS/ML IVP SCH (14:30)
--- NOTE | 2018-09-10 14:40 | PDOC.CTH ---
Cardiology Progress Note - Subjective Remains intubated sedated. Had an episode of sinus tachycardia briefly and self limited. - Objective Vital Signs Temp Pulse Resp BP 09/10/18 13:37 79 103/58 L 09/10/18 12:00 98.9 F 16 09/10/18 10:02 84 120/64 09/10/18 10:00 16 09/10/18 08:00 98.7 F 16 09/10/18 07:14 83 121/70 09/10/18 06:00 16 09/10/18 04:00 98.2 F 16 Admit Weight 197 lb 9 oz Weight 197 lb 9 oz 09/09/18 09/10/18 09/11/18 06:59 06:59 06:59 Intake Total 1547.3 1592.4 50 Output Total 105 48 45 Balance 1442.3 1544.4 5 - Physical Examination General/Neuro: other: (SI) Neck: no JVD present Lungs: CTA, unlabored respirations Heart: RRR Abdomen: NT/ND Extremities: other: (right AKA) - Telemetry Telemetry Rhythm: NSR, S tach - Labs Result Diagrams: 09/10/18 05:09 09/10/18 05:09 - Assessment/Plan 1. S/P Cardiac arrest in OR due to acidosis, sepsis. 2. Septic shock 3. ESRD on HD 4. 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 DM 6. Hypothyrodism 7. Noncompliance 8. Anemia PLAN: - Continue supportive care. - Concern for DVT/PE will do LE US. Cannot anticoagulate due to anemia and bleeding. - Plan is to go to OR tomorrow for closure of amputation stump.
[2018-09-10] MEDS ORDERED: EPOETIN ALFA-EPBX (ESRD) 3,000 UNIT/ML VIAL IVP SCH (15:00)
[2018-09-10] MEDS ORDERED: EPOETIN ALFA-EPBX (ESRD) 2,000 UNIT/ML VIAL IVP SCH (15:00)
--- NOTE | 2018-09-10 15:50 | PRG ---
DATE OF SERVICE: 09/10/2018 SUBJECTIVE: The patient is seen and examined, still on life support, but hemodynamically stable . OBJECTIVE: HEENT: Unremarkable with endotracheal tube in place. CARDIOVASCULAR SYSTEM: First and second heart sounds were heard. RESPIRATORY SYSTEM: Revealed ventilator sounds. DIGESTIVE SYSTEM: Revealed a benign abdomen with positive bowel sounds. EXTREMITIES: Showed lower extremity AKA still draining. NEUROLOGICAL: The patient is intubated, but alert. LABORATORY INVESTIGATION: Significant for hemoglobin of 7.3. Chemistry showed creatinine of 5.43, BUN of 71. IMPRESSION: 1. Rpxwj-na-fskvmmuq chronic kidney disease. 2. Cardiopulmonary failure, on life support. 3. Anemia, likely anemia of chronic illness. 4. Sepsis. PLAN: 1. We will start this patient on erythropoiesis-stimulating agent and continue through the patient's dialysis schedule. 2. The patient to be dialyzed again tomorrow, and afterwards, the patient is likely to be on Tuesday, Tuesday, and Tuesday schedule. 3. We will begin to make arrangement for outpatient dialysis. We will begin to talk with Case Management. 4. Transfuse p.r.n. especially when the hemoglobin is less than 7. 5. Further management to be dependent on the clinical course. Job ID: [id number]
[2018-09-10] MEDS: Pantoprazole 40 MG VIAL IVP SCH (20:36)
--- NOTE | 2018-09-10 21:40 | ULT ---
EXAM: Left lower extremity venous Doppler HISTORY: left lower extremity edema and pain FINDINGS: Grayscale, color-flow, Doppler evaluation, spectral analysis of the left lower extremity venous struc tures is performed with 2-D imaging. The left common femoral, superficial femoral, popliteal, posterior tibial, proximal greater saphenous and profunda femoral veins are imaged. There is normal luminal compressibility, flow, and augmentation the visualized deep venous structures of the left lower extremity. There is a lobulated anechoic structure seen in the popliteal fossa measuring 6.1 cm x 3.1 cm x 3.2 c m. No flow is seen in this structure on color flow evaluation, and this is most compatible with a Cuellar's cyst. Mild subcutaneous edema is seen. IMPRESSION: 1. No evidence of a deep vein thrombosis in the visualized deep venous structures left lower extremit y. 2. Cuellar's cyst left popliteal fossa.
[2018-09-11] MEDS: metroNIDAZOLE 250 MG in Admixture Fee 2 EACH IVPB SCH ×5 (00:21→23:12)
[2018-09-11 06:44] LABS: Hemoglobin 6.4 g/dL (14.0-18.0); Mean Corpuscular Hemoglobin 28.7 pg (27.0-31.0); Mean Corpuscular Volume 87.1 fL (78.0-98.0); Mean Platelet Volume 7.6 fL (7.4-10.4); Platelet Count 175 thou/uL (130-400); RBC Distribution Width 13.8 % (11.5-14.5); Red Blood Cell (RBC) Count 2.24 mill/uL (4.70-6.10); White Blood Cell (WBC) Count 24.9 thou/uL (4.8-10.8)
[2018-09-11 06:45] LABS: Band 3 % (5-11); Eosinophils 1 % (0-10); Lymphocytes 8 % (21-51); MDiff Complete? YES; Monocytes 4 % (0-10); Neutrophil 84 % (42-75); Platelet Morphology Comment Appears Adequate
[2018-09-11 06:53] LABS: Actual Bicarbonate (HCO3a) 19.9 mEq/L (22-28); Base Excess (BEa) -2.8 mEq/L (-2.0 to +3.0); CO2 Tension 27.4 mmHg (35.0-45.0); Calcium, Ionized 1.06 mmol/L (1.12-1.30); Carboxyhemoglobin (COHb) 0.8 gm% (0.0-3.0); O2 Tension (PaO2) 148.4 mmHg (80.0-100.0); Potassium - ABG Lab 3.76 mmol/L (3.70-5.30); pH, Arterial 7.48 (7.35-7.45)
[2018-09-11 06:54] LABS: Puncture Site RRA
[2018-09-11 06:54] LABS: Anion Gap 18 mmol/L (10-20); BUN (Urea Nitrogen) 58 mg/dL (8.4-25.7); Calc. Creatinine Clearance 21 mL/min (70-130); Calcium 7.8 mg/dL (7.8-10.44); Carbon Dioxide 21 mmol/L (22-29); Chloride 103 mmol/L (98-107); Estimated GFR-MDRD 12; Glucose 124 mg/dL (70-105); Potassium 3.9 mmol/L (3.5-5.1); Sodium 138 mmol/L (136-145)
[2018-09-11] MEDS: fentaNYL Citrate/PF 2,000 MCG in Sodium Chloride 0.9% 60 ML IV SCH ×2 (07:39→20:22)
[2018-09-11] MEDS: Propofol 1,000 MG/100 ML VIAL IV PRN (07:39)
--- NOTE | 2018-09-11 07:50 | PRG ---
DATE OF SERVICE: 09/07/2018 ADDENDUM: The patient according to report did code in the OR and is now on life support and moved to ICU. The patient required some antibiotics in the context of possible infection osteomyelitis and necrotizing fasciitis. The patient is currently on life support and given the hemodynamic instability of this patient, we will hold of dialysis tonight, pending stabilization of the patient's hemodynamics we will strongly recommend outpatient Nephrology followup status post discharge. Job ID: [id number]
--- NOTE | 2018-09-11 07:57 | RAD ---
CHEST 1 VIEW: Date: 09/11/18 INDICATION: Intubation. COMPARISON: Prior exam dated 09/10/18. FINDINGS: Cardiomegaly, ET tube, and gastric catheter are unchanged. Pulmonary vascular congestion persists. Sm all left pleural effusion with left basilar opacity is stable. No pneumothorax is evident. IMPRESSION: Stable exam. POS: BH
--- NOTE | 2018-09-11 08:10 | PRG ---
DATE OF SERVICE: 09/09/2018 SUBJECTIVE: The patient is seen and examined, still on life support. Noted with the following vital signs. OBJECTIVE: VITAL SIGNS: Afebrile, blood pressure 127/68, pulse 80, and O2 saturation 100%. HEENT: Remarkable for endotracheal tube in place. CARDIOVASCULAR SYSTEM: First and second heart sounds. RESPIRATORY SYSTEM: Revealed vented sounds. DIGESTIVE SYSTEM: Revealed benign abdomen. EXTREMITIES: Showed incipient peripheral edema. LABORATORY INVESTIGATION: Showed a hemoglobin of 6.5. Chemistry; creatinine of 7.08, BUN of 103, bicarb of 20, potassium 3.3, and phosphorus of 6.1. IMPRESSION: 1. Acute on chronic kidney disease to the point of renal replacement therapy. 2. Hypokalemia. 3. Hyperphosphatemia. 4. Cardiopulmonary failure. PLAN: 1. The patient to be dialyzed and when his hemodynamics stabilizes, we will begin but for now we will continue to . Further management will be dependent on the clinical course. Job ID: [id number]
[2018-09-11] MEDS ORDERED: EPOETIN ALFA-EPBX (ESRD) 2,000 UNIT/ML VIAL IVP SCH (09:00)
[2018-09-11] MEDS ORDERED: EPOETIN ALFA-EPBX (ESRD) 3,000 UNIT/ML VIAL SC SCH (09:00)
[2018-09-11] MEDS: Pantoprazole 40 MG VIAL IVP SCH ×2 (09:45→20:23)
--- NOTE | 2018-09-11 10:05 | PDOC.GSPN ---
Surgery Progress Note: Subj - Subjective Narrative: Patient is reasonably stable. He denies any pain in his abdomen. His thigh is a little tender posteriorly. His dressing is dry. The nurse reports that she did not have any significant bleeding but that on Tuesday night and Tuesday he did have some clots and significant bleeding from his wound. No melena or hematochezia. Still intubated but currently not on pressors. His white count is still very elevated although his bandemia has improved. His hematocrit has dropped again today. He was transfused 2 more units on the and has been started on Neupogen. His subcutaneous heparin has been held. His abdomen is soft and nondistended and he denies any tenderness with palpation. Assessment/plan: Status post guillotine right above-knee amputation for gas forming infection of the right calf. Cultures are growing Morganella which is pansensitive, although blood cultures are positive for Bacteroides, which has not grown from his foot or leg cultures. He has not had any fevers but still has an elevated white count and continues to drop his hematocrit despite no evidence of ongoing bleeding from his surgical site. Concerned about possibility of occult infection in his thigh or abdomen, and possible intra- abdominal or retroperitoneal bleeding, although the anemia could just represent equilibration after an aggressive fluid resuscitation when he was septic. I'm going to get a noncontrast CT of abdomen and pelvis and thigh. We'll await these results. Tentatively plan to place a tunneled hemodialysis catheter and close the right [id number] amputation tomorrow. Surgery Progress Note: Obj - Vital signs Vital signs: Vital Signs - Most Recent Temp Pulse Resp BP Pulse Ox 98.6 F 78 16 109/57 L 100 09/11/18 08:00 09/11/18 09:59 09/11/18 06:00 09/11/18 02:39 09/10/18 20:00 Surgery Progress Note: Results - Labs Result Diagrams: 09/11/18 06:22 09/11/18 06:22 Lab results: Laboratory Results - last 24 hr 09/07/18 09/07/18 09/11/18 19:14 20:15 04:25 WBC RBC Hgb Hct MCV MCH MCHC RDW Plt Count MPV Neutrophils % (Manual) Band Neuts % (Manual) Lymphocytes % (Manual) Monocytes % (Manual) Eosinophils % (Manual) Plt Morphology Comment Specimen Type Puncture Site Bicarbonate Actual ABG pH ABG pCO2 ABG pO2 ABG O2 Sat Calc/Heather ABG O2 Content ABG Base Excess ABG Hematocrit ABG Hemoglobin ABG Oxyhemoglobin ABG Carboxyhemoglobin ABG Methemoglobin ABG Deoxyhemoglobin A-a O2 Gradient Ionized Calcium Mode of Support % Minute Volume Mechanical Rate Inspired O2 Tidal Volume Spontaneous Tidal Vol Peak Inspir Pressure Pressure Support PEEP or CPAP Sodium Potassium Chloride Carbon Dioxide Anion Gap BUN Creatinine Estimated GFR (MDRD) Glucose POC Glucose 249 H Calcium Blood Type O POSITIVE Antibody Screen NEGATIVE Crossmatch See Detail 09/11/18 09/11/18 09/11/18 04:44 06:22 06:22 WBC 24.9 H RBC 2.24 L Hgb 6.4 L Hct 19.5 L MCV 87.1 MCH 28.7 MCHC 33.0 RDW 13.8 Plt Count 175 MPV 7.6 Neutrophils % (Manual) 84 H Band Neuts % (Manual) 3 L Lymphocytes % (Manual) 8 L Monocytes % (Manual) 4 Eosinophils % (Manual) 1 Plt Morphology Comment Appears Adequate Specimen Type Puncture Site Bicarbonate Actual ABG pH ABG pCO2 ABG pO2 ABG O2 Sat Calc/Heather ABG O2 Content ABG Base Excess ABG Hematocrit ABG Hemoglobin ABG Oxyhemoglobin ABG Carboxyhemoglobin ABG Methemoglobin ABG Deoxyhemoglobin A-a O2 Gradient Ionized Calcium Mode of Support % Minute Volume Mechanical Rate Inspired O2 Tidal Volume Spontaneous Tidal Vol Peak Inspir Pressure Pressure Support PEEP or CPAP Sodium 138 Potassium 3.9 Chloride 103 Carbon Dioxide 21 L Anion Gap 18 BUN 58 H Creatinine 4.94 H Estimated GFR (MDRD) 12 Glucose 124 H POC Glucose 117 H Calcium 7.8 Blood Type Antibody Screen Crossmatch 09/11/18 06:45 WBC RBC Hgb Hct MCV MCH MCHC RDW Plt Count MPV Neutrophils % (Manual) Band Neuts % (Manual) Lymphocytes % (Manual) Monocytes % (Manual) Eosinophils % (Manual) Plt Morphology Comment Specimen Type ARTERIAL Puncture Site RRA Bicarbonate Actual 19.9 L ABG pH 7.48 H ABG pCO2 27.4 L ABG pO2 148.4 H ABG O2 Sat Calc/Heather 98.9 H ABG O2 Content 12.7 L ABG Base Excess -2.8 L ABG Hematocrit 26.0 L ABG Hemoglobin 9.0 L ABG Oxyhemoglobin 97.8 ABG Carboxyhemoglobin 0.8 ABG Methemoglobin 0.30 ABG Deoxyhemoglobin 1.1 A-a O2 Gradient 31.250 H Ionized Calcium 1.06 L Mode of Support SIMV % Minute Volume 9.5 Mechanical Rate 16 Inspired O2 30 Tidal Volume 500 Spontaneous Tidal Vol 574 Peak Inspir Pressure 118 Pressure Support 10 PEEP or CPAP 5.0 Sodium 134 L Potassium 3.76 Chloride 102 Carbon Dioxide Anion Gap BUN Creatinine Estimated GFR (MDRD) Glucose POC Glucose Calcium Blood Type Antibody Screen Crossmatch
--- NOTE | 2018-09-11 10:32 | PDOC.CTH ---
Cardiology Progress Note - Subjective The pt seen and examined. No overnight events. He is still on Vent with sedation; however, he can follow up commands. - Objective Vital Signs Temp Pulse Resp BP 09/11/18 09:59 78 09/11/18 08:00 98.6 F 09/11/18 06:43 77 09/11/18 06:00 16 09/11/18 04:00 98.7 F 09/11/18 02:39 71 109/57 L 09/11/18 02:00 16 09/11/18 00:00 98.7 F 16 09/10/18 23:23 73 121/62 Admit Weight 197 lb 9 oz Weight 197 lb 9 oz 09/10/18 09/11/18 09/12/18 06:59 06:59 06:59 Intake Total 1592.4 7640.8 Output Total 48 65 5 Balance 1544.4 7575.8 -5 - Physical Examination Lungs: other: (diminished at bases) Heart: RRR Abdomen: soft Extremities: other: (Generalized edema) - Telemetry Telemetry Rhythm: SR - Labs Result Diagrams: 09/11/18 13:52 09/11/18 13:52 - Assessment/Plan 1. S/p Cardiac arrest @ OR - due to acidosis,sepsis induced. 2. Hypotension 2/2 sepsis - stable Off Levephed and Vasopresson; 3. ESRD - on HD 4. S/p Rt AKA on 09/07/2018 due to septic extremity - Plan is to go to OR today for closure of amputation stump. 5. DM - 6. Hypotyrodism - 7. Non-compliance of med 8. Chronic Anemia with S/p 2 PRBC tx on 09/09/2018 - Hgb 6.4 today MAR reviewed * Vein study showed no DVT. * Echo on 09/07/2018 with EF 55-60%, severe ERV, dilated LA, and mod ERA Pt. seen and eval. by me. He had another event today with tachycardia and HTN and then dropped the HR and BP and was in PEA per the staff. He recovered after CPR and is maintained on Levophed and the BP has increased. The EKG indicates a RBBB,1 AVB. he will undergo dialysis again tomorrow. The EF by echo was WNL.. I agree otherwise with the A/P by the TRANSPLANT REGISTERED NURSE. Review of Systems - Review of Systems Constitutional: reports: see HPI
[2018-09-11] MEDS: Lorazepam 2 MG/ML VIAL SLOW IVP PRN (10:44)
--- NOTE | 2018-09-11 11:38 | CT ---
EXAM: CT Lower Ext Rt WO Con PROVIDED CLINICAL HISTORY: Post uozue-cfs-glgn amputation secondary to gas gangrene at the level of the calf. COMPARISON: None FINDINGS: Limited exam secondary to lack of intravenous contrast. There are postsurgical changes related to above the knee amputation of the right lower extremity. Sof t tissue defect is seen at the stump of the above the knee amputation. There is subcutaneous edema seen about the more proximal aspect of the right upper extremity greater involving the medial and lat eral aspects of the thigh with prominent subcutaneous edema seen in the right lateral gluteal region. No fluid collection is seen on this nonenhanced CT scan examination to suggest abscess collec tion. Vascular calcifications are seen in the right femoral artery. There is mild irregularity of the dista l femur at the level of the site of amputation, but there is no evidence of osseous destruction involving the remainder of the right femur proximal to this region. IMPRESSION: 1. Postsurgical changes related to above the knee amputation right lower extremity at the level of th e distal femur. 2. Defect in the subcutaneous soft tissues at the stump of the amputation predominantly posteriorly a nd inferiorly 3. No fluid collection is seen to suggest an abscess on this exam. There is a small amount of gas see n tracking along the distal aspect medial thigh which is likely attributable to open wound/defect at the stump of the amputation. 4. Subcutaneous edema about the right lower extremity predominantly involving the medial aspect of th e thigh but circumferentially present involving the most upper thigh and prominent subcutaneous edema involving the lateral right gluteal region..
[2018-09-11] MEDS: MEROPENEM 1 GM/50 ML 1 GM in Premix Bag 1 BAG IVPB SCH (11:57)
--- NOTE | 2018-09-11 12:26 | CT ---
CT OF THE ABDOMEN AND PELVIS WITHOUT IV CONTRAST: INDICATION: History of decrease in the patient's hemoglobin and hematocrit, concern for intraabdominal bleeding. COMPARISON: CTA of the abdomen and pelvis dated 08/26/2016. FINDINGS: There are small bilateral pleural effusions and bibasilar consolidation most suspicious for compressi ve atelectasis. There is a stable 3.6 cm hypodensity within the right hepatic lobe, which on a prior PET CT demonstra nicole no associated hypermetabolic activity and had heterogeneous enhancement on a CTA examination date d 08/26/2016/. This was considered likely a hemangioma. The gallbladder is distended with gallbladder wall thickening and layered stones. A 3 cm right adrenal nodule is stable, likely reflecting a lipid poor adrenal adenoma. The pancreas and spleen appear within normal limits. The unopacified kidneys are unremarkable appear ing. There is mild ascites. There is prominent anasarca. There is a left common femoral that projects up to the left aspect of the L5 vertebra. There is a Dietz catheter in a decompressed bladder. No acute osseous abnormality is evident. IMPRESSION: 1. Findings possibly related to volume overload, CHF or sepsis with bilateral pleural effusions, mil d ascites, and anasarca. 2. Gallbladder wall thickening with gallbladder distention and layered gallstones. The gallbladder wall thickening can be seen related to gallbladder edema from passive edematous changes related to th e patient's volume overload or sepsis. A component of acute cholecystitis cannot be entirely exclude d. 3. Stable right hepatic lobe and right adrenal gland nodules. The right hepatic lobe lesion was sugar pected to be a hemangioma. The right adrenal nodule has not appreciably changed and is likely a lipi d-poor adenoma. 4. No definite evidence of intraabdominal hemorrhage. 5. Left common femoral dialysis catheter projects outside of a large central venous structure such a s the let external iliac vein and left common iliac vein. This may project into a left L5 paraverteb ral vein. Recommend consideration for repositioning. Findings concerning the catheter were called jack Erickson RN for this patient, at 11:20 a.m., on 09/11/2018. 6. Other chronic findings as above. CODE CR POS: CET
[2018-09-11 13:55] LABS: Actual Bicarbonate (HCO3a) 16.8 mEq/L (22-28); Base Excess (BEa) -7.9 mEq/L (-2.0 to +3.0); CO2 Tension 30.4 mmHg (35.0-45.0); Calcium, Ionized 1.08 mmol/L (1.12-1.30); Carboxyhemoglobin (COHb) 1.3 gm% (0.0-3.0); Hemoglobin (Hb) 7.2 g/dL (14.0-18.0); O2 Tension (PaO2) 252.6 mmHg (80.0-100.0); Potassium - ABG Lab 3.68 mmol/L (3.70-5.30); pH, Arterial 7.36 (7.35-7.45)
[2018-09-11 13:56] LABS: Puncture Site LR
[2018-09-11 14:03] LABS: Actual Bicarbonate (HCO3a) 11.8 mEq/L (22-28); Analyzer IN Cardio OR; CO2 Tension 45.6 mmHg (35.0-45.0); Calcium, Ionized 2.14 mmol/L (1.12-1.30); Carboxyhemoglobin (COHb) 0.2 gm% (0.0-3.0); Hemoglobin (Hb) 8.9 g/dL (14.0-18.0); O2 Tension (PaO2) 325.8 mmHg (80.0-100.0); Potassium - ABG Lab 5.03 mmol/L (3.70-5.30)
[2018-09-11 14:07] LABS: Puncture Site ALINE; pH, Arterial 7.03 (7.35-7.45)
[2018-09-11 14:14] LABS: INR-International Normal Ratio 1.2; Prothrombin Time 15.3 SEC (12.0-14.7)
[2018-09-11 14:15] LABS: PTT 47.4 SEC (22.9-36.1)
[2018-09-11] MEDS ORDERED: Epoetin (ESRD) 20,000 UNITS/ML IVP SCH (14:23)
[2018-09-11 15:52] LABS: Hemoglobin 6.5 g/dL (14.0-18.0)
[2018-09-11 16:08] LABS: Chloride 101 mmol/L (98-107); Potassium 3.9 mmol/L (3.5-5.1); Sodium 136 mmol/L (136-145)
[2018-09-11 16:09] LABS: Calcium 7.2 mg/dL (7.8-10.44); Glucose 167 mg/dL (70-105)
[2018-09-11 16:10] LABS: Carbon Dioxide 17 mmol/L (22-29)
[2018-09-11 16:12] LABS: Calc. Creatinine Clearance 20 mL/min (70-130); Estimated GFR-MDRD 11
[2018-09-11 16:13] LABS: BUN (Urea Nitrogen) 56 mg/dL (8.4-25.7)
[2018-09-11 16:16] LABS: Anion Gap 22 mmol/L (10-20)
[2018-09-11] MEDS: Insulin Regular 300 UNITS/3 ML VIAL SC PRN ×2 (16:25→20:30)
[2018-09-11 16:31] LABS: CKMB 1.1 ng/mL (0-6.6)
--- NOTE | 2018-09-11 16:33 | PRG ---
DATE OF SERVICE: SUBJECTIVE: Mr. Parry actually looked reasonably stable this morning. This afternoon, became hypertensive, tachycardic, and then lost the pulse. He was resuscitated without drugs, came back in a rapid rhythm similar to the rhythm that he was in after surgery on night last week. I am not sure if it was atrial flutter. He received adenosine, converted to sinus rhythm, and converted back into that rhythm and received 5 of Cardizem. He transiently required some Levophed to get his blood pressure up. He is currently stable at this time. OBJECTIVE: VITAL SIGNS: His heart rate is in the 90s, in sinus rhythm, with a first-degree block and a right bundle. LUNGS: Clear. HEART: Regular rhythm. ABDOMEN: Soft and nontender. EXTREMITIES: Unchanged. He has a bandage on his right extremity, still has an open stump on the right. LABORATORY DATA: White count 24.9, hemoglobin 6.4, and platelets 175. Hemoglobin on the blood gas was 7.2. The pH post-code of 7.36, CO2 of 30, and pO2 of 252. Sodium 138, potassium 3.9, chloride 103, bicarb 21, BUN 58, and creatinine 4.94. IMPRESSION: 1. Status post guillotine amputation of gangrene of his right lower extremity. 2. Tachyarrhythmia, ? atrial flutter. 3. Status post pulseless electrical activity transiently, unclear reason. 4. Acute on chronic renal failure. 5. Blood loss anemia. 6. Status post abdomen and pelvis CT today showing gallbladder wall thickening, gallbladder distention, no intraabdominal hemorrhage was seen. a. The dialysis catheter in left was felt to be in possibly paravertebral vein. b. We were able to draw blood out of this easily after the code. Neurosurgery will address this. 7. History of noncompliance with diabetes management. His stepdaughter was in there and confirmed that he has never been willing to take his meds as recommended. 8. Mild resting tachycardia after his rest, that has resolved. We will follow the other physicians caring for him. Critical care time including the cardiac arrest is 75 minutes today. Job ID: [id number]
[2018-09-11] MEDS ORDERED: Pancrelipase DR 12000 1 CAP FS PRN (18:26)
[2018-09-11] MEDS ORDERED: Sodium Bicarbonate Tab 325 MG TAB PER TUBE PRN (18:26)
--- NOTE | 2018-09-11 21:19 | PRG ---
DATE OF SERVICE: 09/11/2018 SUBJECTIVE: The patient is seen and examined with very labile hemodynamics and decided not to proceed with dialysis of today. OBJECTIVE: VITAL SIGNS: At this time of dictation, the patient noted with the following vital signs; afebrile, temperature 99.3, pulse 85, respiratory rate of 20 with blood pressure 144/69. HEENT: Remarkable for endotracheal tube in place with a lot of gargling sounds. CARDIOVASCULAR: First and second heart sounds heard, tachyarrhythmia. RESPIRATORY: Revealed vented sounds. DIGESTIVE: Revealed positive bowel sounds. EXTREMITIES: Showed no significant peripheral edema. NEURO: Arousable. LABORATORY INVESTIGATION: Showed a hemoglobin of 6.4. Chemistry; creatinine of 5.23, BUN of 56. IMPRESSION: 1. Acute on chronic kidney disease to the point of requiring renal replacement therapy. 2. Metabolic acidosis. 3. Sepsis. 4. Cardiopulmonary failure. 5. Persistent anemia, likely in the context of ongoing blood loss. PLAN: 1. We will hold off on dialysis for today given the labile hemodynamics of this patient. However, the patient was to require blood transfusion and continue with erythropoiesis stimulating agent. 2. Renal supportive measures and avoid potentially nephrotoxic agents. 3. Further management will be dependent on the clinical course. Job ID: [id number]
[2018-09-12] MEDS: metroNIDAZOLE 250 MG in Admixture Fee 2 EACH IVPB SCH ×4 (05:22→22:55)
[2018-09-12 07:38] LABS: Actual Bicarbonate (HCO3a) 17.2 mEq/L (22-28); Base Excess (BEa) -5.1 mEq/L (-2.0 to +3.0); Calcium, Ionized 1.08 mmol/L (1.12-1.30); Carboxyhemoglobin (COHb) 2.6 gm% (0.0-3.0); Hemoglobin (Hb) 6.5 g/dL (14.0-18.0); O2 Tension (PaO2) 127.9 mmHg (80.0-100.0); Potassium - ABG Lab 3.92 mmol/L (3.70-5.30); pH, Arterial 7.52 (7.35-7.45)
[2018-09-12 07:43] LABS: ALV-art Gradient 58.875 (0-20); CO2 Tension 21.7 mmHg (35.0-45.0); Puncture Site RRA
[2018-09-12 08:34] LABS: Anion Gap 19 mmol/L (10-20); BUN (Urea Nitrogen) 70 mg/dL (8.4-25.7); Calc. Creatinine Clearance 18 mL/min (70-130); Calcium 7.9 mg/dL (7.8-10.44); Carbon Dioxide 18 mmol/L (22-29); Chloride 105 mmol/L (98-107); Estimated GFR-MDRD 9; Glucose 153 mg/dL (70-105); Sodium 138 mmol/L (136-145)
[2018-09-12 08:44] LABS: Band 7 % (5-11); Hemoglobin 7.4 g/dL (14.0-18.0); Hypochromia SLIGHT = 6-15 cells (100X) (0-5/hpf); Lymphocytes 2 % (21-51); MDiff Complete? YES; Mean Corpuscular HGB CONC 33.2 g/dL (32.0-36.0); Mean Corpuscular Hemoglobin 29.2 pg (27.0-31.0); Mean Corpuscular Volume 87.7 fL (78.0-98.0); Mean Platelet Volume 7.3 fL (7.4-10.4); Monocytes 2 % (0-10); Myelocyte 1 % (0-0); Neutrophil 88 % (42-75); Platelet Count 235 thou/uL (130-400); Platelet Morphology Comment Appears Adequate; RBC Distribution Width 14.3 % (11.5-14.5); Red Blood Cell (RBC) Count 2.55 mill/uL (4.70-6.10); White Blood Cell (WBC) Count 29.1 thou/uL (4.8-10.8)
--- NOTE | 2018-09-12 09:14 | RAD ---
PORTABLE SUPINE CHEST: Date: 09/12/18 HISTORY: Ventilator. CCU follow-up. COMPARISON: 09/11/18. FINDINGS/IMPRESSION: ET tube and NG tube remain in place. The lungs are well aerated and clear of infiltrate. No evidence of vascular congestion or significant effusion. Improvement in appearance of the chest when compared to yesterday with improved aeration and decrease d vascular engorgement. POS: OFF
--- NOTE | 2018-09-12 09:15 | PDOC.GSPN ---
Surgery Progress Note: Subj - Subjective Narrative: Patient had tachyarrhythmia and brief PEA last night from which he was successfully resuscitated. This levophed was able to be successfully weaned off during the assistant casino shift manager and this morning he is hemodynamically stable, alert and answering questions. He denies any pain in his abdomen but his gallbladder looked markedly abnormal yesterday and could potentially be the source of his blood cultures positive for Bacteroides. He has only grown pansensitive Morganella from his foot and legs. I did not think he was clinically stable enough to tolerate a laparoscopic cholecystectomy so I asked interventional radiology to place a percutaneous cholecystostomy tube. He was actually in the process of being sent to interventional radiology for a percutaneous cholecystostomy tube when he had his code. Radiology is planning to perform the procedure at the bedside this morning. His dialysis catheter appears to be in a paravertebral vein but was able to be successfully used for dialysis over the weekend so I do not plan to move this. 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 There is no evidence of intra-abdominal or retroperitoneal bleeding on the CT and the thigh looked okay. There was some minimal gas in the soft tissues but this appeared to be contiguous with the open wound and is likely just postsurgical in nature. The patient remains critically ill. White count is still very elevated and he has had multiple episodes of arrhythmias, although most of them have been asymptomatic. If he is not stable enough to go to the operating room this afternoon, I will likely need to replace the femoral catheter, possibly over a wire. Surgery Progress Note: Obj - Vital signs Vital signs: Vital Signs - Most Recent Temp Pulse Resp BP Pulse Ox 98.9 F 79 16 141/74 H 100 09/12/18 04:00 09/12/18 07:23 09/12/18 06:00 09/12/18 02:50 09/11/18 20:00 Surgery Progress Note: Results - Labs Result Diagrams: 09/12/18 07:58 09/12/18 07:58 Lab results: Laboratory Results - last 24 hr 09/11/18 09/12/18 09/12/18 20:31 05: 07:30 WBC RBC Hgb Hct MCV MCH MCHC RDW Plt Count MPV Neutrophils % (Manual) Band Neuts % (Manual) Lymphocytes % (Manual) Monocytes % (Manual) Myelocytes % Hypochromia Plt Morphology Comment Specimen Type ARTERIAL Puncture Site RRA Bicarbonate Actual 17.2 L ABG pH 7.52 H ABG pCO2 21.7 L* ABG pO2 127.9 H ABG O2 Sat Calc/Heather 99.0 H ABG O2 Content 9.1 L ABG Base Excess -5.1 L ABG Hematocrit 19.0 L ABG Hemoglobin 6.5 L ABG Oxyhemoglobin 96.1 ABG Carboxyhemoglobin 2.6 ABG Methemoglobin 0.30 ABG Deoxyhemoglobin 1.0 A-a O2 Gradient 58.875 H Sodium 135 Potassium 3.92 Chloride 103 Ionized Calcium 1.08 L Mode of Support SIMV % Minute Volume 12.1 Mechanical Rate 16 Spontaneous Rate 5 Inspired O2 30 Tidal Volume 500 Spontaneous Tidal Vol 310 Peak Inspir Pressure 18 Pressure Support 10 PEEP or CPAP 5.0 Carbon Dioxide Anion Gap BUN Creatinine Estimated GFR (MDRD) Glucose POC Glucose 180 H 144 H Calcium 09/12/18 09/12/18 07:58 07:58 WBC 29.1 H RBC 2.55 L Hgb 7.4 L Hct 22.4 L MCV 87.7 MCH 29.2 MCHC 33.2 RDW 14.3 Plt Count 235 MPV 7.3 L Neutrophils % (Manual) 88 H Band Neuts % (Manual) 7 Lymphocytes % (Manual) 2 L Monocytes % (Manual) 2 Myelocytes % 1 H Hypochromia SLIGHT = 6-15 cells Plt Morphology Comment Appears Adequate Specimen Type Puncture Site Bicarbonate Actual ABG pH ABG pCO2 ABG pO2 ABG O2 Sat Calc/Heather ABG O2 Content ABG Base Excess ABG Hematocrit ABG Hemoglobin ABG Oxyhemoglobin ABG Carboxyhemoglobin ABG Methemoglobin ABG Deoxyhemoglobin A-a O2 Gradient Sodium 138 Potassium 4.0 Chloride 105 Ionized Calcium Mode of Support % Minute Volume Mechanical Rate Spontaneous Rate Inspired O2 Tidal Volume Spontaneous Tidal Vol Peak Inspir Pressure Pressure Support PEEP or CPAP Carbon Dioxide 18 L Anion Gap 19 BUN 70 H Creatinine 6.22 H Estimated GFR (MDRD) 9 Glucose 153 H POC Glucose Calcium 7.9
[2018-09-12] MEDS: Propofol 1,000 MG/100 ML VIAL IV PRN ×2 (09:21→23:10)
[2018-09-12] MEDS: Pantoprazole 40 MG VIAL IVP SCH ×2 (09:21→21:40)
[2018-09-12] MEDS: fentaNYL Citrate/PF 2,000 MCG in Sodium Chloride 0.9% 60 ML IV SCH (10:00)
--- NOTE | 2018-09-12 11:10 | ULT ---
Sonographic guided cholecystostomy HISTORY: Acute cholecystitis. Poor surgical candidate. FINDINGS: After explaining the procedure and answering all questions, sonographic survey shows gallbl adder to remains distended and edematous. Sterile technique, buffered local anesthesia, sonographic guidance, and a right upper quadrant chante lateral approach were used to carefully advance a 19-gauge trocar needle through the left liver lobe and into the distended gallbladder. A 0.035 Amplatz wire was used to hold position. Tract was di lated to 6 Cymraes. A locking loop 6 Cymraes drainage catheter was placed in the gallbladder lumen. Total volume of 185 cc black bile was aspirated. A portion sent to laboratory for evaluation. Cathete r was secured externally and left draining to gravity. Patient tolerated the procedure well. IMPRESSION: Successful sonographic guided cholecystostomy.
[2018-09-12] MEDS: MEROPENEM 1 GM/50 ML 1 GM in Premix Bag 1 BAG IVPB SCH (12:59)
[2018-09-12] MEDS ORDERED: EPINEPHrine 1 MG/10 ML Abboject SYRINGE ONE ×2 (13:09→20:09)
[2018-09-12] MEDS ORDERED: Lidocaine 1% PF 5 ML VIAL ONE ×2 (13:09)
[2018-09-12] MEDS ORDERED: PHENYLEPHRINE-NS 100 MCG/ML 10 ML SYRINGE ONE (13:09)
--- NOTE | 2018-09-12 13:16 | PDOC.CTH ---
Cardiology Progress Note - Subjective The pt seen and examined. No overnight events. No cardiac complaints. S/p another PEA yesterday. No more episodes. The pt answers and follows commands. - Objective Vital Signs Temp Pulse Resp BP 09/12/18 10:12 80 09/12/18 07:23 79 09/12/18 06:00 16 09/12/18 04:00 98.9 F 16 09/12/18 02:50 83 141/74 H 09/12/18 02:00 16 Admit Weight 197 lb 9 oz Weight 208 lb 12.444 oz 09/11/18 09/12/18 09/13/18 06:59 06:59 06:59 Intake Total 7640.8 2020.8 Output Total 65 165 Balance 7575.8 1855.8 - Physical Examination Lungs: other: (diminished at bases) Heart: RRR Abdomen: soft Extremities: other: (generalized edema) - Telemetry Telemetry Rhythm: SR - Labs Result Diagrams: 09/13/18 04:05 09/13/18 04:05 Troponin/CKMB CK-MB (CK-2) 1.1 ng/mL (0-6.6) 09/11/18 13:52 Troponin I 0.884 ng/mL (< 0.028) H* 09/11/18 13:52 - Assessment/Plan 1. S/p Cardiac arrest @ OR - due to acidosis, sepsis induced. 2. Hypotension 2/2 sepsis - stable Off Levephed and Vasopresson; 3. ESRD - on HD 4. 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 5. DM - 6. Hypotyrodism - 7. Non-compliance of med 8. Chronic Anemia with S/p 2 PRBC tx on 09/09/2018 - On Epoetin 9. s/p percutaneous drain placement on 09/12/2018 MAR reviewed * Vein study showed no DVT. * Echo on 09/07/2018 with EF 55-60%, severe ERV, dilated LA, and mod ERA Pt. seen and eval. by me. Events of last night in the OR noted. There does not appear to be any ischemic changes on the EKG. He has a RBBB. He may have CAD but this does not appear to be the issue. I will repeat the echo and consider a VANDANA. There is a possibility he may have a perivalvular abcess that has extended to /involved the conduction area. Continue supportive care. Review of Systems - Review of Systems Constitutional: reports: no symptoms reported Eyes (ROS): reports: no symptoms reported Ear: reports: no symptoms reported Nose (ROS): reports: no symptoms reported Mouth: reports: no symptoms reported Throat: reports: no symptoms reported
--- NOTE | 2018-09-12 15:34 | PRG ---
DATE OF SERVICE: 09/12/2018 SUBJECTIVE: Ryan Parry is awake and moves all his extremities. He is going to the OR today for closure of his AKA on the right. He has a tunneled dialysis catheter placed. Hopefully, we will have central line placed as well. OBJECTIVE: GENERAL: He is in no distress. VITAL SIGNS: Heart rate is 78, blood pressure is 119/58, respiratory rate is per mechanical ventilation, oximetry is 100%. LUNGS: Clear. HEART: Regular rate and rhythm. ABDOMEN: Soft. EXTREMITIES: Both lower extremities without edema. LABORATORY DATA: White count is 29.1, hemoglobin is 7.4, platelets 235. Sodium 130, potassium 4, chloride 105, bicarb 18, BUN 70, creatinine 6.32. IMPRESSION: 1. Status post pulseless electrical activity yesterday. 2. ? atrial flutter intermittently. 3. End-stage renal disease secondary to diabetes. 4. Diabetes with a long history of noncompliance according to family and Dr. Bright. 5. Status post emergent [id number] amputation for gas gangrene of his right lower extremity. 6. Blood loss anemia. 7. Status post abdomen and pelvis CT showing no retroperitoneal bleed. 8. Status post percutaneous drainage of the gallbladder. 9. Normal left ventricular systolic function with echocardiogram and evidence of pulmonary hypertension with a dilated left atrium. This would argue that perhaps this is related to diastolic dysfunction. We will continue with critical care support. If he is stable overnight and has no more rhythm disturbances, we will consider weaning and extubating him in 24 to 48 hours. CRITICAL CARE TIME: 30 minutes. Job ID: [id number]
[2018-09-12] MEDS: Insulin Regular 300 UNITS/3 ML VIAL SC PRN (17:10)
[2018-09-12] MEDS ORDERED: Bupivacaine/Epinephrine 0.25% 30 ML VIAL ONE (18:06)
[2018-09-12] MEDS ORDERED: Heparin 10,000 UNITS/1 ML VIAL ONE (18:06)
[2018-09-12] MEDS ORDERED: Sodium Chloride 0.9% 20 ML ONE (18:06)
[2018-09-12] MEDS ORDERED: Lidocaine 2% PF 5 ML VIAL ONE (18:06)
[2018-09-12] MEDS ORDERED: Norepinephrine 8 MG/0.9% NS 250 ML ONE (18:10)
[2018-09-12] MEDS ORDERED: Phenylephrine HCL 10 MG/ML VIAL ONE (18:22)
[2018-09-12] MEDS ORDERED: Fentanyl 250 MCG/5 ML VIAL ONE (19:11)
[2018-09-12] MEDS ORDERED: Sodium Bicarbonate 2.5 MEQ/5 ML VIAL ONE (20:12)
[2018-09-12] MEDS ORDERED: Sodium Bicarb 50 MEQ/50 ML VIAL ONE (20:13)
[2018-09-12] MEDS ORDERED: Esmolol 100 MG/10 ML VIAL ONE (20:19)
--- NOTE | 2018-09-12 20:31 | PRG ---
DATE OF SERVICE: 09/12/2018 SUBJECTIVE: The patient was seen and examined, seems to be much more stable today. Noted with the following vital signs. OBJECTIVE: VITAL SIGNS: Afebrile, blood pressure , pulse 80. HEENT: Remarkable for endotracheal tube in place. CARDIOVASCULAR SYSTEM: First and second heart sounds were heard. RESPIRATORY SYSTEM: Revealed ventilator sounds. DIGESTIVE SYSTEM: Revealed a benign abdomen. EXTREMITIES: Showed an open wound. IMPRESSION: 1. Acute on chronic kidney disease, likely at the stage of end-stage renal disease on hemodialysis. 2. Cardiopulmonary failure. 3. Sepsis. PLAN: 1. The patient seemed to have a lot of procedures lined up today including percutaneous gallbladder drainage as well as possible tunneled dialysis catheter placement and closure of the lower extremity stump. As a result of all these lined up procedure, which will eventually take the entire day, we will hold off on dialyzing this patient today and plan to dialyze the patient with the new catheter tomorrow. 2. Femoral dialysis catheter to be discontinued once the tunneled dialysis catheter is secured. 3. Further management will be dependent on the clinical course if the condition of patient is still critical. Job ID: [id number]
[2018-09-12 20:46] LABS: Actual Bicarbonate (HCO3a) 17.1 mEq/L (22-28); Base Excess (BEa) -8.6 mEq/L (-2.0 to +3.0); CO2 Tension 35.7 mmHg (35.0-45.0); Calcium, Ionized 1.02 mmol/L (1.12-1.30); Hemoglobin (Hb) 8.2 g/dL (14.0-18.0); O2 Tension (PaO2) 233.5 mmHg (80.0-100.0); Potassium - ABG Lab 3.87 mmol/L (3.70-5.30)
[2018-09-12 20:48] LABS: ALV-art Gradient 434.875 (0-20); Puncture Site ALINE
--- NOTE | 2018-09-12 20:57 | RAD ---
AP view chest obtained. HISTORY: Post line placement AP view chest obtained on 09/12/2018. Comparison made to previous exam from earlier in the day on 09/12. Nasogastric and endotracheal tubes are in place. There is been placement of a right jugular dialysis catheter distal tip overlying the superior vena c isabel. There is been placement of a left jugular central line distal tip overlying the superior vena cava. No evidence of pneumothorax seen. There does appear to be some area of the developed soft tissue dens ity over the right apical region of the lung possibly representing a small right-sided hemothorax. There is suboptimal inspiratory effort. Cardiomegaly seen. Pulmonary vascular congestion is seen. IMPRESSION: No evidence of postprocedure pneumothorax. There does appear to be a collection of fluid adjacent to the right apical region possibly presenting a right-sided hemothorax.
[2018-09-13] MEDS: fentaNYL Citrate/PF 2,000 MCG in Sodium Chloride 0.9% 60 ML IV SCH ×2 (02:40→15:43)
[2018-09-13 05:06] LABS: Band 5 % (5-11); Hemoglobin 6.8 g/dL (14.0-18.0); Lymphocytes 3 % (21-51); MDiff Complete? YES; Mean Corpuscular HGB CONC 32.9 g/dL (32.0-36.0); Mean Platelet Volume 6.9 fL (7.4-10.4); Metamyelocyte 1 % (0-0); Monocytes 4 % (0-10); Neutrophil 87 % (42-75); Platelet Count 295 thou/uL (130-400); Platelet Morphology Comment Appears Adequate; RBC Distribution Width 14.3 % (11.5-14.5); Red Blood Cell (RBC) Count 2.35 mill/uL (4.70-6.10); White Blood Cell (WBC) Count 22.6 thou/uL (4.8-10.8)
[2018-09-13 05:13] LABS: Anion Gap 25 mmol/L (10-20); BUN (Urea Nitrogen) 82 mg/dL (8.4-25.7); Calc. Creatinine Clearance 16 mL/min (70-130); Calcium 7.7 mg/dL (7.8-10.44); Carbon Dioxide 16 mmol/L (22-29); Chloride 104 mmol/L (98-107); Estimated GFR-MDRD 8; Glucose 217 mg/dL (70-105); Potassium 4.7 mmol/L (3.5-5.1); Sodium 140 mmol/L (136-145)
[2018-09-13] MEDS: metroNIDAZOLE 250 MG in Admixture Fee 2 EACH IVPB SCH ×3 (05:57→17:30)
[2018-09-13] MEDS: Insulin Regular 300 UNITS/3 ML VIAL SC PRN ×2 (06:13→16:35)
[2018-09-13 07:49] LABS: Actual Bicarbonate (HCO3a) 17.3 mEq/L (22-28); Base Excess (BEa) -7.1 mEq/L (-2.0 to +3.0); CO2 Tension 30.4 mmHg (35.0-45.0); Calcium, Ionized 1.06 mmol/L (1.12-1.30); Carboxyhemoglobin (COHb) 1.6 gm% (0.0-3.0); Hemoglobin (Hb) 7.6 g/dL (14.0-18.0); O2 Tension (PaO2) 106.3 mmHg (80.0-100.0); Potassium - ABG Lab 4.49 mmol/L (3.70-5.30); pH, Arterial 7.37 (7.35-7.45)
--- NOTE | 2018-09-13 07:49 | RAD ---
Chest one view HISTORY: Dyspnea. Follow-up. COMPARISON: 09/12/2018. FINDINGS: Cardiac silhouette is magnified and upper limits of normal in size. Pulmonary vasculature i s accentuated and engorged, similar in appearance. Mediastinum is midline. Lines and tubes are unchanged in position. No evidence of pneumothorax. surveillance system monitor leads overlie the chest. IMPRESSION: Stable radiographic appearance of the chest.
[2018-09-13 07:59] LABS: Puncture Site LINE
[2018-09-13 08:58] LABS: Actual Bicarbonate (HCO3a) 17.7 mEq/L (22-28); Analyzer IN Cardio OR; Base Excess (BEa) -7.4 mEq/L (-2.0 to +3.0); CO2 Tension 34.2 mmHg (35.0-45.0); Calcium, Ionized 1.06 mmol/L (1.12-1.30); Carboxyhemoglobin (COHb) 0.5 gm% (0.0-3.0); Hemoglobin (Hb) 7.7 g/dL (14.0-18.0); O2 Tension (PaO2) 340.4 mmHg (80.0-100.0); Potassium - ABG Lab 4.07 mmol/L (3.70-5.30); pH, Arterial 7.33 (7.35-7.45)
[2018-09-13 08:59] LABS: Puncture Site ALINE
[2018-09-13 09:17] LABS: Fungus Stain Final report (.)
--- NOTE | 2018-09-13 10:33 | PDOC.CTH ---
Cardiology Progress Note - Subjective pt. seen and eval. by me. He is presently undergoing dialysis. BP fluctuates, occasional V-bigeminy. Repeat PEA / bradycardia in the OR. Not able to close the leg as he became unstable. - ROS not able to obtain ROS - Objective Vital Signs Temp Pulse Resp BP Pulse Ox 09/13/18 10:00 16 09/13/18 08:00 16 100 09/13/18 07:49 16 09/13/18 07:46 79 09/13/18 07:00 98.8 F 09/13/18 06:00 16 09/13/18 04:00 98.9 F 16 09/13/18 02:25 95 112/63 09/13/18 02:00 99.8 F H 09/13/18 00:00 100.2 F H 09/12/18 22:36 146 H 94/68 Admit Weight 197 lb 9 oz Weight 208 lb 1.862 oz 09/12/18 09/13/18 09/14/18 06:59 06:59 06:59 Intake Total 2020.8 930.6 0 Output Total 165 306 50 Balance 1855.8 624.6 -50 - Physical Examination General/Neuro: other: (seems to understand. Awake. Intubated.) Neck: no JVD present Lungs: CTA Heart: RRR Abdomen: soft, other: (drainage tube in gallbladder. Draining bilious material.) - Telemetry Telemetry Rhythm: NSR, occasional PVC's,V-bigeminy. - Labs Result Diagrams: 09/13/18 04:05 09/13/18 04:05 Troponin/CKMB CK-MB (CK-2) 1.1 ng/mL (0-6.6) 09/11/18 13:52 Troponin I 0.884 ng/mL (< 0.028) H* 09/11/18 13:52 - Assessment/Plan 1. S/p Cardiac arrest @ OR - due to acidosis, sepsis induced. 2. Hypotension 2/2 sepsis - stable Off Levephed and Vasopresson; 3. ESRD - on HD 4. 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 5. DM - 6. Hypotyrodism - 7. Non-compliance of med 8. Chronic Anemia with S/p 2 PRBC tx on 09/09/2018 - On Epoetin 9. s/p percutaneous drain placement on 09/12/2018 MAR reviewed * Vein study showed no DVT. * Echo on 09/07/2018 with EF 55-60%, severe ERV, dilated LA, and mod ERA Pt. seen and eval. by me. Events of last night in the OR noted. There does not appear to be any ischemic changes on the EKG. He has a RBBB. He may have CAD but this does not appear to be the issue. I will repeat the echo and consider a VANDANA. There is a possibility he may have a perivalvular abcess that has extended to /involved the conduction area. Continue supportive care.
[2018-09-13] MEDS ORDERED: Heparin 10,000 UNITS/ 10 ML VIAL ONE ×2 (11:11)
[2018-09-13] MEDS ORDERED: Fentanyl BOLUS 250 ML IVPB PRN (11:36)
[2018-09-13] MEDS: Pantoprazole 40 MG VIAL IVP SCH ×2 (11:40→21:13)
[2018-09-13] MEDS: EPOETIN ALFA-EPBX (ESRD) 3,000 UNIT/ML VIAL SC SCH (11:43)
[2018-09-13] MEDS: MEROPENEM 1 GM/50 ML 1 GM in Premix Bag 1 BAG IVPB SCH (11:48)
--- NOTE | 2018-09-13 11:54 | EKG ---
Test Reason : Blood Pressure : / mmHG Vent. Rate : 090 BPM Atrial Rate : 090 BPM P-R Int : 210 ms QRS Dur : 168 ms QT Int : 380 ms P-R-T Axes : 001 -67 046 degrees QTc Int : 464 ms Sinus rhythm with 1st degree A-V block with occasional Premature ventricular complexes Left axis deviation Right bundle branch block Abnormal ECG When compared with ECG of 07-SEP-2018 20:04, Sinus rhythm has replaced Wide QRS tachycardia Vent. rate has decreased BY [address] José Miguel GOODEN ([id number]) on 09/13/2018 11:54:24 AM Referred By: LORE Confirmed By:DR. José Miguel GOODEN
--- NOTE | 2018-09-13 13:48 | PRG ---
DATE OF SERVICE: 09/13/2018 SUBJECTIVE: Mr. Parry coded again in the OR last night. Apparently, they were positioning to close his amputation and he just developed bradycardia, asystole, and then had maybe 10 to 15 seconds of chest compressions and he had return of rhythm. He received some epinephrine. I have suggested to place him on vasopressin. He has been stable since then. OBJECTIVE: VITAL SIGNS: He is sedated, afebrile, respiratory rate 16, heart rate 74, blood pressure 109/54. Intake and outputs, positive 624 mL. LUNGS: Clear anteriorly. HEART: Regular rhythm. ABDOMEN: Soft and nontender without masses. EXTREMITIES: Unchanged. He has wound VAC on his right lower extremity stump. LABORATORY DATA: White count 22.6, hemoglobin 6.8, platelets 295. Sodium 140, potassium 4.7, chloride 104, bicarb 16, BUN 82, creatinine 6.96. IMPRESSION: 1. Respiratory failure associated with high amputation for gangrene of his right lower extremity. 2. Diabetic with a long history of noncompliance. 3. Multiple codes almost on a daily basis, that are all rhythm related, it appears. I would wonder if he does not have a critical coronary lesion leading to these events. a. Apparently, the stepdaughter who actually cares for everybody in the family, but does not have a documented power of health care for stepfather. Wants the patient to be a ci-uxq-grqcsjuhqnt patient. I do think this is reasonable. However, I am not sure she has the ability to make this decision alone. b. I have asked Palliative Care to look into this. 4. Other problems include end-stage renal disease with a tunneled catheter in. 5. Diabetes. 6. Hypothyroidism. 7. Anemia with a hemoglobin of 6.8 today, probably needs to be transfused again. 8. Status post placement of percutaneous drain of his gallbladder. We will continue to follow the other physicians caring for him. His prognosis is quite poor. He does wake up between codes, so it is hard to completely quit on him, but he has some knee problems and apparently he has been severely depressed because of his inability to work, but not sure he has will to live. CRITICAL CARE TIME: 30 minutes. Job ID: [id number]
[2018-09-13] MEDS ORDERED: Lidocaine 2% Jelly 5 ML TUBE ONE (16:00)
[2018-09-13] MEDS ORDERED: Adenosine 6 MG/2 ML VIAL ONE (16:00)
--- NOTE | 2018-09-13 20:05 | PRG ---
DATE OF SERVICE: 09/13/2018 SUBJECTIVE: The patient is seen and examined. OBJECTIVE: VITAL SIGNS: Noted with the following vital signs: T-maximum of 100.2, pulse 95, respiratory rate of 16, blood pressure 102/63, and O2 saturation 100%. HEENT: Unremarkable. CARDIOVASCULAR SYSTEM: First and second heart sounds were heard. RESPIRATORY SYSTEM: Revealed vented sounds. DIGESTIVE SYSTEM: Revealed benign abdomen with positive bowel sounds. EXTREMITIES: Showed evidence of lower extremity above-knee amputation on the right. LABORATORY INVESTIGATIONS: Showed a hemoglobin of 6.8. Chemistry; creatinine of 6.96, BUN of 82, and bicarb of 16. IMPRESSION: 1. End-stage renal disease, on hemodialysis. 2. Cardiopulmonary failure, on life support. 3. Sepsis. 4. Diabetic nephropathy. 5. Metabolic acidosis. PLAN: 1. The patient is known to be placed on daily dialysis, modified to accommodate the labile hemodynamics of this patient. 2. Transfuse this patient preferably with dialysis. 3. Renally dose all medications and avoid potentially nephrotoxic agents. 4. Further management will be dependent on the clinical course. Job ID: [id number]
[2018-09-13] MEDS: Lorazepam 2 MG/ML VIAL SLOW IVP PRN (21:11)
[2018-09-14] MEDS: metroNIDAZOLE 250 MG in Admixture Fee 2 EACH IVPB SCH ×4 (00:07→17:38)
[2018-09-14 04:46] LABS: Hemoglobin 8.6 g/dL (14.0-18.0); Hypochromia SLIGHT = 6-15 cells (100X) (0-5/hpf); Lymphocytes 9 % (21-51); MDiff Complete? YES; Mean Corpuscular HGB CONC 34.5 g/dL (32.0-36.0); Mean Corpuscular Hemoglobin 30.4 pg (27.0-31.0); Mean Corpuscular Volume 88.1 fL (78.0-98.0); Mean Platelet Volume 6.8 fL (7.4-10.4); Monocytes 4 % (0-10); Neutrophil 87 % (42-75); Platelet Count 291 thou/uL (130-400); Platelet Morphology Comment Appears Adequate; RBC Distribution Width 15.6 % (11.5-14.5); Red Blood Cell (RBC) Count 2.82 mill/uL (4.70-6.10); White Blood Cell (WBC) Count 15.8 thou/uL (4.8-10.8)
[2018-09-14 04:52] LABS: Anion Gap 24 mmol/L (10-20); BUN (Urea Nitrogen) 41 mg/dL (8.4-25.7); Calc. Creatinine Clearance 25 mL/min (70-130); Calcium 8.1 mg/dL (7.8-10.44); Carbon Dioxide 17 mmol/L (22-29); Chloride 102 mmol/L (98-107); Estimated GFR-MDRD 14; Glucose 147 mg/dL (70-105); Potassium 4.1 mmol/L (3.5-5.1); Sodium 139 mmol/L (136-145)
[2018-09-14] MEDS: fentaNYL Citrate/PF 2,000 MCG in Sodium Chloride 0.9% 60 ML IV SCH ×2 (05:02→20:46)
[2018-09-14 07:46] LABS: Actual Bicarbonate (HCO3a) 16.6 mEq/L (22-28); Base Excess (BEa) -6.5 mEq/L (-2.0 to +3.0); Calcium, Ionized 1.09 mmol/L (1.12-1.30); Hemoglobin (Hb) 8.5 g/dL (14.0-18.0); Potassium - ABG Lab 4.16 mmol/L (3.70-5.30); pH, Arterial 7.44 (7.35-7.45)
--- NOTE | 2018-09-14 07:46 | RAD ---
EXAM: CHEST ONE VIEW HISTORY: On ventilator. Follow-up evaluation COMPARISON: 09/13/2018 FINDINGS: Endotracheal tube, nasogastric tube, left internal jugular vein central venous catheter, and right in ternal jugular vein tunneled hemodialysis catheter remain in place. A pacing device overlies the lower left chest. Cardiac silhouette is magnified by projection but remains at the upper limits of no rmal in size. There is mild pulmonary vascular congestion, but this does appear improved compared to prior study. Pacing device limits evaluation of the left lung base, but there is suggestion of pat candis density at the medial left lung base which could be related to atelectasis. Mild atelectasis is present at the right lung base. Atelectasis at each lung base is probably attributable to shallow dep th of inspiration. No other interval change. IMPRESSION: Improvement in pulmonary vascular congestion with minimal interstitial patchy densities at each lung base which may be related to atelectasis or developing pneumonitis. Lines and tubes are stable in position.
[2018-09-14 08:06] LABS: CO2 Tension 24.7 mmHg (35.0-45.0)
[2018-09-14 08:07] LABS: ALV-art Gradient 42.025 (0-20); Puncture Site LINE
[2018-09-14] MEDS: Pantoprazole 40 MG VIAL IVP SCH ×2 (08:45→21:10)
[2018-09-14] MEDS: MEROPENEM 1 GM/50 ML 1 GM in Premix Bag 1 BAG IVPB SCH (12:27)
--- NOTE | 2018-09-14 12:55 | PDOC.CTH ---
Cardiology Progress Note - Subjective The pt seen and examined. No overnight events. No cardiac complaints. He is on Vent with vent sedation; however, he opens his eyes and follows commands. - Objective Vital Signs Temp Pulse Resp BP Pulse Ox 09/14/18 12:00 98.7 F 16 09/14/18 11:15 79 128/47 L 09/14/18 10:00 16 09/14/18 08:00 99.1 F 16 100 09/14/18 07:38 80 140/49 L 09/14/18 06:00 16 09/14/18 04:00 98.2 F 20 09/14/18 02:16 76 122/67 09/14/18 02:00 18 Admit Weight 197 lb 9 oz Weight 214 lb 9.6 oz 09/13/18 09/14/18 09/15/18 06:59 06:59 06:59 Intake Total 930.6 1514.1 100 Output Total 306 870 174 Balance 624.6 644.1 -74 - Physical Examination General/Neuro: alert & oriented x3 Neck: no JVD present Lungs: CTA (diminished at bases), other: Heart: RRR Abdomen: soft Extremities: other: - Telemetry Telemetry Rhythm: SR - Labs Result Diagrams: 09/14/18 04:19 09/14/18 04:19 Troponin/CKMB CK-MB (CK-2) 1.1 ng/mL (0-6.6) 09/11/18 13:52 Troponin I 0.884 ng/mL (< 0.028) H* 09/11/18 13:52 - Assessment/Plan 1. S/p Cardiac arrest @ OR - due to acidosis, sepsis induced. 2. Hypotension 2/2 sepsis - stable Off Levephed and Vasopresson; 3. ESRD - on HD 4. S/p Rt AKA on 09/07/2018 due to septic extremity with a wound vac 5. DM - 6. Hypotyrodism - 7. Non-compliance of med 8. Chronic Anemia with S/p 2 PRBC tx on 09/09/2018 - On Epoetin 9. s/p percutaneous drain placement on 09/12/2018 MAR reviewed * Vein study showed no DVT. * Echo on 09/07/2018 with EF 55-60%, severe ERV, dilated LA, and mod ERA * Echo on 09/13/2018 with EF 50-55%, diastolic dysfunction, mild dilated LA, mild MR, and trace TR. Pt. seen and eval. by me. I agree with the A/P by the [employer]. Overall he is looking more stable. Chest clear anteriorly. RRR. No tachycardia or BP swings today. Continue supportive care. Futher cardiac workup when he is medically stable. Review of Systems - Review of Systems Constitutional: reports: see HPI
[2018-09-14] MEDS: Insulin Regular 300 UNITS/3 ML VIAL SC PRN ×2 (15:22→21:21)
--- NOTE | 2018-09-14 17:23 | PRG ---
DATE OF SERVICE: 09/14/2018 SUBJECTIVE: Ryan Parry has made it longer than 24 hours without a cardiac arrest. He will awake and move all his extremities. OBJECTIVE: VITAL SIGNS: Heart rate 85, blood pressure 166/58, and respiratory rate is 20. GENERAL: He has communicated to us that he wants his stepdaughter to make his healthcare decisions and does not want his brother, who is the only living related. Relatively, he is capable of making decisions. His sedation was held for couple of hours, so that he can confirm this off sedation. LUNGS: Clear today. HEART: Regular rhythm. ABDOMEN: Soft. He has a wound VAC on his right lower extremity. He has a cholecystostomy drain in place. LABORATORY DATA: White count 15.8, hemoglobin 8.6, platelets 291. Sodium 139, potassium 4.1, chloride 102, bicarb 17, BUN 41, creatinine 4.33. A pH 7.44, CO2 of 24, and pO2 of 141. IMPRESSION: Status post multiple bradycardic arrest. First arrest was in the OR when his pH was 7.0 or less, so that was explainable by his acid-base disorder, but the remainder of his arrests have been either bradycardia or I believe one of them was pulseless electrical activity. Most of these resolved spontaneously with brief periods of CPR. He has no clinical indication that he has suffered any anoxic or hypoperfusion injury. He has only had one troponin drawn that was on admission and it was 0.8. We will continue to follow. I am hesitant to extubate him until at least few days stability. Family wants him to be a do not resuscitate the patient. Critical care time is 35 minutes. Job ID: [id number] [id number]
--- NOTE | 2018-09-14 17:39 | PDOC.GSPN ---
Surgery Progress Note: Subj - Subjective Narrative: Patient denies pain. Answers questions and follows commands but avoided eye contact and seems withdrawn today. He is still intubated but is off pressors. His nurse as a hemodynamically he has been more stable since his last transfusion. He has received multiple transfusions, with no ongoing source of blood loss evident and no significant bleeding from his operative site since the first postop night. His white count has come down today, and there is a fair amount of bile draining from the cholecystostomy tube, although nothing is growing on bile culture. They did see some white cells on Gram stain however. He is tolerating dialysis. VAC dressing is in place on the right thigh with minimal drainage. Assessment/plan: Doing better today. Attempt to close his right above-knee amputation on the was unsuccessful since he coded in the operating room again. I have elected not to attempt further surgery this week. If he is stable through the weekend, closure next week can be attempted. I am not sure why he continues to require intermittent transfusion, unless he is hemolyzing. No source of ongoing blood loss has been found clinically or on imaging and he should've equilibrated from his intra/postoperative losses. His tunneled dialysis catheter is working well, and I do not plan to place a fistula during this hospitalization. We should continue to avoid lab draws and IVs on the right side however, since the cephalic vein on that side is his best choice for access. Dr. Yoon will be assuming care after tomorrow as I will be out of town for 2 weeks. Surgery Progress Note: Obj - Vital signs Vital signs: Vital Signs - Most Recent Temp Pulse Resp BP Pulse Ox 99.3 F 85 20 166/58 H 100 09/14/18 15:15 09/14/18 15:04 09/14/18 15:33 09/14/18 15:04 09/14/18 08:00 Surgery Progress Note: Results - Labs Result Diagrams: 09/14/18 04:19 09/14/18 04:19 Lab results: Laboratory Results - last 24 hr 09/14/18 09/14/18 09/14/18 04:18 07:40 10:55 Specimen Type ARTERIAL Puncture Site LINE Bicarbonate Actual 16.6 L ABG pH 7.44 ABG pCO2 24.7 L* ABG pO2 141.0 H ABG O2 Sat Calc/Heather 98.9 H ABG O2 Content 12.0 L ABG Base Excess -6.5 L ABG Hematocrit 25.0 L ABG Hemoglobin 8.5 L ABG Oxyhemoglobin 97.6 ABG Carboxyhemoglobin 1.0 ABG Methemoglobin 0.30 ABG Deoxyhemoglobin 1.1 Bello Test NOT DONE A-a O2 Gradient 42.025 H Sodium 138 Potassium 4.16 Chloride 102 Ionized Calcium 1.09 L Mode of Support PSIMV Mechanical Rate 16 Inspired O2 30 Tidal Volume 500 Pressure Support 10 PEEP or CPAP 5.0 POC Glucose 139 H 148 H
--- NOTE | 2018-09-14 19:39 | PRG ---
DATE OF SERVICE: 09/14/2018 SUBJECTIVE: The patient was seen and examined, noted with the following vital signs. OBJECTIVE: VITAL SIGNS: Afebrile. Blood pressure 139/67, pulse of 85, O2 saturation of 100%. HEENT: Unremarkable. CARDIOVASCULAR SYSTEM: First and second heart sounds were heard. RESPIRATORY SYSTEM: Clear to auscultation anteriorly. DIGESTIVE SYSTEM: Revealed positive bowel sounds. EXTREMITIES: Show some peripheral edema. NEUROLOGIC: Alert but very lethargic. LABORATORY INVESTIGATION: Showed a white count of 15,000, hemoglobin of 8.6. Chemistry showed bicarb of 17, BUN of 41, with a creatinine of 4.33. IMPRESSION: 1. End-stage renal disease, on hemodialysis. 2. Cardiopulmonary failure. 3. Sepsis, on treatment. PLAN: 1. The patient to continue with daily gentle modify dialysis with ultrafiltration as tolerated by hemodynamics until the patient is successfully extubated. 2. Renally dose all medications for low GFR and avoid potentially nephrotoxic agents. 3. Further management to be dependent on the clinical course. Job ID: [id number]
[2018-09-15] MEDS: metroNIDAZOLE 250 MG in Admixture Fee 2 EACH IVPB SCH ×4 (00:25→17:52)
[2018-09-15] MEDS: Lorazepam 2 MG/ML VIAL SLOW IVP PRN ×2 (01:13→19:21)
[2018-09-15 05:36] LABS: Band 3 % (5-11); Eosinophils 2 % (0-10); Hemoglobin 8.1 g/dL (14.0-18.0); Lymphocytes 10 % (21-51); MDiff Complete? YES; Mean Corpuscular HGB CONC 33.4 g/dL (32.0-36.0); Mean Corpuscular Hemoglobin 29.7 pg (27.0-31.0); Mean Corpuscular Volume 89.2 fL (78.0-98.0); Mean Platelet Volume 6.6 fL (7.4-10.4); Monocytes 8 % (0-10); Myelocyte 2 % (0-0); Neutrophil 75 % (42-75); Platelet Count 310 thou/uL (130-400); RBC Distribution Width 15.6 % (11.5-14.5); Red Blood Cell (RBC) Count 2.71 mill/uL (4.70-6.10); White Blood Cell (WBC) Count 12.1 thou/uL (4.8-10.8)
[2018-09-15 05:37] LABS: ALT (SGPT) 21 U/L (8-55); AST (SGOT) 13 U/L (5-34); Alkaline Phosphatase 734 U/L (40-150); Anion Gap 20 mmol/L (10-20); BUN (Urea Nitrogen) 32 mg/dL (8.4-25.7); Calc. Creatinine Clearance 29 mL/min (70-130); Calcium 7.8 mg/dL (7.8-10.44); Carbon Dioxide 20 mmol/L (22-29); Chloride 102 mmol/L (98-107); Estimated GFR-MDRD 17; Globulin 2.6 g/dL (2.4-3.5); Glucose 221 mg/dL (70-105); Potassium 3.6 mmol/L (3.5-5.1); Protein, Total 4.6 g/dL (6.0-8.3); Sodium 138 mmol/L (136-145)
[2018-09-15 08:12] LABS: Actual Bicarbonate (HCO3a) 20.2 mEq/L (22-28); Base Excess (BEa) -2.8 mEq/L (-2.0 to +3.0); CO2 Tension 28.3 mmHg (35.0-45.0); Carboxyhemoglobin (COHb) 0.4 gm% (0.0-3.0); Hemoglobin (Hb) 8.5 g/dL (14.0-18.0); O2 Tension (PaO2) 136.3 mmHg (80.0-100.0); pH, Arterial 7.47 (7.35-7.45)
[2018-09-15 08:22] LABS: ALV-art Gradient 42.225 (0-20); Puncture Site ALINE
[2018-09-15] MEDS: fentaNYL Citrate/PF 2,000 MCG in Sodium Chloride 0.9% 60 ML IV SCH ×2 (08:37→23:54)
[2018-09-15] MEDS: Pantoprazole 40 MG VIAL IVP SCH ×2 (09:52→19:55)
[2018-09-15] MEDS ORDERED: Heparin 10,000 UNITS/1 ML VIAL ONE (10:00)
[2018-09-15] MEDS: Propofol 1,000 MG/100 ML VIAL IV PRN (10:03)
[2018-09-15] MEDS ORDERED: niCARdipine 40MG In NaCl 40 MG/200 ML BAG IVPB SCH (10:45)
[2018-09-15] MEDS: Insulin Regular 300 UNITS/3 ML VIAL SC PRN ×2 (10:57→19:55)
[2018-09-15] MEDS: niCARdipine 50 MG in Sodium Chloride 0.9% 250 ML 230 ML IVPB SCH ×2 (11:11→19:56)
--- NOTE | 2018-09-15 11:29 | PDOC.CTH ---
Cardiology Progress Note - Subjective The pt seen and examined. No overnight events. No cardiac complaints. He opens eyes but not answered questions. - Objective Vital Signs Temp Pulse Resp BP Pulse Ox 09/15/18 11:05 98.3 F 09/15/18 10:00 11 L 09/15/18 08:00 16 100 09/15/18 07:39 76 116/78 09/15/18 07:21 98.4 F 09/15/18 06:00 16 09/15/18 04:00 98.1 F 16 09/15/18 02:39 80 09/15/18 02:00 16 09/15/18 00:00 98.6 F 16 Admit Weight 197 lb 9 oz Weight 208 lb 5.389 oz 09/14/18 09/15/18 09/16/18 06:59 06:59 06:59 Intake Total 1514.1 1445.3 Output Total 870 258 60 Balance 644.1 1187.3 -60 - Physical Examination Lungs: other: (diminished at bases) Heart: RRR Abdomen: soft Extremities: other: (generalized edema) - Telemetry Telemetry Rhythm: SR with PACs - Labs Result Diagrams: 09/15/18 04:45 09/15/18 04:45 Troponin/CKMB CK-MB (CK-2) 1.1 ng/mL (0-6.6) 09/11/18 13:52 Troponin I 0.884 ng/mL (< 0.028) H* 09/11/18 13:52 - Assessment/Plan 1. S/p Cardiac arrest @ OR - due to acidosis, sepsis induced. 2. Hypertension - will start Coreg 6.25mg BID from today 3. ESRD - on HD 4. S/p Rt AKA on 09/07/2018 due to septic extremity with a wound vac 5. DM - 6. Hypotyrodism - 7. Non-compliance of med 8. Chronic Anemia with S/p 2 PRBC tx on 09/09/2018 - On Epoetin 9. s/p percutaneous drain placement on 09/12/2018 10. Hypotension 2/2 sepsis - resolved MAR reviewed * Vein study showed no DVT. * Echo on 09/07/2018 with EF 55-60%, severe ERV, dilated LA, and mod ERA * Echo on 09/13/2018 with EF 50-55%, diastolic dysfunction, mild dilated LA, mild MR, and trace TR. Pt. seen and eval. by me. Iaveniceee with the A\P by the [employer]. He is continuing to look a little stronger. Labs improving. No significant arrhythmias. Increased BP today while changing wound vac. This has stabalized. Continue supportive care. Further cardiac workup in future. He may benefit from a cardiac cath in the future if he is agreeable. chest clear anteriorly. RRR. Mild left lower leg edema. [email or web address] Review of Systems - Review of Systems Constitutional: reports: see HPI
[2018-09-15] MEDS: MEROPENEM 1 GM/50 ML 1 GM in Premix Bag 1 BAG IVPB SCH (11:52)
[2018-09-15] MEDS ORDERED: Carvedilol 6.25 MG TAB PO SCH (12:00)
--- NOTE | 2018-09-15 12:55 | PRG ---
DATE OF SERVICE: 09/15/2018 SUBJECTIVE: Mr. Parry awakens. He moves all his extremities. He still has a wound VAC on his right lower extremity. He has a cholecystotomy tube still in place. Intake and outputs positive 1187. Tube drained 120 mL. He appears comfortable. He is afebrile. Blood pressure 175/88. I started a Cardene drip because of BP up in the 190s earlier. I switched him to a Precedex drip. OBJECTIVE: LUNGS: Clear. HEART: Regular rhythm. ABDOMEN: Soft. EXTREMITIES: As mentioned, wound VAC on his guillotine amputation of his right lower extremity above the knee. LABORATORY DATA: White count 12.1, hemoglobin 8.1, platelets 310,000. Sodium 138, potassium 3.6, chloride 110, bicarb 20, BUN 32, creatinine 3.76. A pH 7.47, pCO2 of 28, pO2 of 136. IMPRESSION: 1. Status post emergent amputation in his right lower extremity for gas gangrene. 2. Status post multiple cardiac arrests. The first one was likely acid-base mediated, but the remainder of his cardiac arrests have been brief and there have not been related to metabolic or acid-base disorder. 3. Acute renal failure on top of chronic kidney disease, currently being dialyzed. 4. History of diabetes with medical noncompliance. 5. History of depression. Family thinks he does not want to keep going. 6. Family wants him to be a do not resuscitate status. Yesterday, he said he did not want his brother, who would be the only adult living relative to make decisions. He wanted his stepdaughter to make decisions. Ask Palliative Care to confirm this after he is off sedation for several hours. This has not been addressed from what I can tell her confirmed from looking at the computer. 7. Hopefully before we extubating, we need to have his code status addressed. 8. Surprisingly, he is neurologically intact after multiple codes. We will continue with supportive care. Decreased ventilatory support. Consider spontaneous breathing trial in the morning. Critical care time 39 minutes. Job ID: [id number] MTDD
[2018-09-15] MEDS: Carvedilol 6.25 MG TAB PO SCH (18:14)
--- NOTE | 2018-09-15 19:56 | PRG ---
DATE OF SERVICE: 09/15/2018 SUBJECTIVE: The patient is seen and examined, still on life support. OBJECTIVE: VITAL SIGNS: Noted with the following vital signs: Blood pressure 131/67, pulse 79, respiratory rate of 19, and O2 saturation 100%. HEENT: Unremarkable. CARDIOVASCULAR SYSTEM: First and second heart sounds heard. RESPIRATORY SYSTEM: Revealed vented sounds. DIGESTIVE SYSTEM: Revealed positive bowel sounds. EXTREMITIES: Showed right AKA wound VAC. NEUROLOGIC: Revealed the patient is arousable, somewhat sleepy from fentanyl. IMPRESSION: 1. Acute on chronic kidney disease, more or less to the point of being dependent on hemodialysis. 2. Sepsis in the context of gangrene involving the right lower extremity. 3. Diabetes mellitus type 2, poorly controlled. 4. Cardiopulmonary failure, on life support. PLAN: 1. We will continue with modified gentle dialysis once the patient is extubated. 2. Renally dose all medications and avoid potentially nephrotoxic agents. 3. Further management to be dependent on the clinical course. Job ID: [id number]
[2018-09-15] MEDS: EPOETIN ALFA-EPBX (ESRD) 3,000 UNIT/ML VIAL SC SCH (21:45)
[2018-09-16] MEDS: metroNIDAZOLE 250 MG in Admixture Fee 2 EACH IVPB SCH ×3 (01:49→11:49)
[2018-09-16] MEDS: Propofol 1,000 MG/100 ML VIAL IV PRN (02:43)
[2018-09-16] MEDS: Insulin Regular 300 UNITS/3 ML VIAL SC PRN ×4 (05:32→21:48)
[2018-09-16 06:29] LABS: Anion Gap 10 mmol/L (10-20); BUN (Urea Nitrogen) 20 mg/dL (8.4-25.7); Calc. Creatinine Clearance 44 mL/min (70-130); Calcium 7.8 mg/dL (7.8-10.44); Carbon Dioxide 28 mmol/L (22-29); Chloride 102 mmol/L (98-107); Estimated GFR-MDRD 27; Glucose 241 mg/dL (70-105); Potassium 3.5 mmol/L (3.5-5.1); Sodium 136 mmol/L (136-145)
[2018-09-16 06:34] LABS: Band 6 % (5-11); Eosinophils 2 % (0-10); Hemoglobin 8.1 g/dL (14.0-18.0); Lymphocytes 10 % (21-51); MDiff Complete? YES; Mean Corpuscular HGB CONC 33.4 g/dL (32.0-36.0); Mean Corpuscular Hemoglobin 29.8 pg (27.0-31.0); Mean Corpuscular Volume 89.2 fL (78.0-98.0); Mean Platelet Volume 6.5 fL (7.4-10.4); Metamyelocyte 1 % (0-0); Monocytes 6 % (0-10); Neutrophil 75 % (42-75); Platelet Count 252 thou/uL (130-400); Platelet Morphology Comment Appears Adequate; RBC Distribution Width 15.3 % (11.5-14.5); Red Blood Cell (RBC) Count 2.73 mill/uL (4.70-6.10); White Blood Cell (WBC) Count 11.9 thou/uL (4.8-10.8)
[2018-09-16] MEDS: Pantoprazole 40 MG VIAL IVP SCH ×2 (08:57→21:40)
[2018-09-16] MEDS: Carvedilol 6.25 MG TAB PO SCH ×2 (08:57→17:33)
--- NOTE | 2018-09-16 09:17 | PRG ---
DATE OF SERVICE: 09/16/2018 SERVICE: Pulmonary Medicine. INTERVAL HISTORY: The patient is doing really well overnight. There were no significant cardiovascular collapses that have occurred. He cannot provide much in the way of additional history because he is requiring some minimal sedation. He is on mechanical ventilation. He seems to be doing quite well with this. Yesterday evening, we had a conversation with next of kin, and they have suggested that he has been very clear with them that he would not like aggressive maneuvers moving forward. As such, he has been made a DNAR. They understand that if he has any other code event, he will be passing away and will make no further attempts to resuscitate him. That being said, short of that, we are going to be as aggressive as possible to make him whole again. PHYSICAL EXAMINATION: VITAL SIGNS: Afebrile, pulse 72, blood pressure 138/67, respirations 13, and saturation 100% on 21% FiO2 and a PEEP of 5. GENERAL: The patient is intubated under the influence of some sedation. HEENT: Normocephalic and atraumatic. Sclerae are white. Conjunctivae are pink. Oral mucosa is moist without lesions. LUNGS: Decent air entry. There is dependent crackles present. No prolonged expiratory phase or wheezing is appreciated. HEART: Normal rate. Regular. ABDOMEN: Soft, nontender, and nondistended. Bowel sounds are positive. MUSCULOSKELETAL: No cyanosis or clubbing. There is diffuse edema throughout. It is more pronounced in bilateral upper extremities, but present in the lower extremities and pelvis. His right leg is surgically absent. LABORATORY DATA: WBC 11.9, hemoglobin 8.1, and platelets 252,000. Neutrophil count is returning to normal. Band count is trending upward gently. INR 1.2. Creatinine 2.45. Multiple cultures are growing Morganella, Peptostreptococcus, Acinetobacter, as well as Bacteroides. These organisms are nearly pansensitive. ASSESSMENT: 1. Septic shock, resolving. 2. Acute kidney injury, on dialysis. 3. Necrotizing fasciitis, status post emergent right lower extremity amputation, complicated by stump infection. 4. Pulseless electrical activity arrest, multiple events. DISCUSSION AND PLAN: I will continue to dialyze the patient until he returns to euvolemia. His oxygen requirements are extremely low and the compliance of his lungs is quite good. We will give him a very long sedation holiday. When he starts overbreathing the ventilator, we will put him on a spontaneous breathing trial. If he meets criteria, extubation will be considered. He is now a DNAR, therefore no additional resuscitative measures will be done if the patient has another event. That being said, short of this, we will be very aggressive trying to make him as whole as possible through time. CRITICAL CARE TIME: 30 minutes. Job ID: [id number]
[2018-09-16] MEDS: MEROPENEM 1 GM/50 ML 1 GM in Premix Bag 1 BAG IVPB SCH (11:38)
--- NOTE | 2018-09-16 17:22 | PRG ---
DATE OF SERVICE: 09/16/2018 SUBJECTIVE: Mr. Parry underwent above-knee amputation by Dr. Quick on 08/08. The patient had a transverse incision just above the level of the knee and after the amputation, soft tissues were closed over the popliteal artery stumps. During the procedure, the patient had tachybrady syndrome and then he had a severe episode of bradycardia, which was pulseless and he had required chest compressions, IV fluids, and epinephrine. A femoral Trialysis catheter was placed during this procedure, and the patient had an external jugular IV placed by the Anesthesia team. Pulses returned. He was transferred to the ICU, intubated. The pathology demonstrated necrotizing infection of the right leg with calcific atherosclerosis, ischemic ulceration. The margins appeared viable. The patient had a CT of abdomen and pelvis because of drop in hemoglobin, concern with intraabdominal bleeding, and there was evidence of gallbladder wall thickening with distention. There were some adrenal gland nodules. The final microbiology revealed Bacteroides fragilis, and 2 sets of blood cultures, Morganella morganii, Acinetobacter baumannii complex, type-2 Strep in the leg samples. On 09/12, the patient underwent placement of cholecystostomy tube because of concerns with the findings in the CT scan. There has been progressive decrease in white cell count from 29,000 to 11,000. Alkaline phosphatase went up to 700, but the transaminases have remained within normal limits. The patient has been extubated, is awake, establishes eye contact. He denies any headaches. No chest pain. No abdominal pain. He has a Dietz catheter in place. OBJECTIVE: VITAL SIGNS: Vital signs showed a T-max of 100.2 many days ago. He has been afebrile since. BP 140/60, heart rate 87. SKIN: Shows a stage 2 area of ulceration in the presacral region with sort of bruised area around this ulceration. The amputation margin with the picture of the not yet closed area of amputation. The bone sticks out with the marrow and then there are areas of soft tissue and fat tissue necrosis around. Most of the area appears viable. This is from the . NEURO: The ocular movements are conjugate. He is able to speak, but it is somewhat difficult to understand his speech output. His mouth is dry. He has not had a speech evaluation yet, so is not having any nutrition via the oral route. LUNGS: With symmetric air entry with faint basilar crackles. HEART: S1, S2. Regular rate. ABDOMEN: Soft, not distended, more tender. Dietz catheter in place. I's and O's have been positive. Urine output ranging from 150 to 220. LABORATORY DATA: White cell count at 11.9, hemoglobin 8.1, platelets 252 with normal differential except for lymphocytopenia. Sodium 136, creatinine 2.45. No fungi were observed in the specimen submitted. The cultures have been reviewed. ASSESSMENT AND DISCUSSION: Type-2 diabetes; neuropathy; peripheral vascular disease; necrotizing infection; right lower extremity, status post above knee amputation; recurrent episodes of tachyarrhythmias and bradycardia and extended episodes of severe bradycardia, which has recurred in the attempt of closure of the AKA site, so the closure has been postponed until he is more stable. The patient has had also placement of cholecystostomy tube for concern with possible cholecystitis with gallstones and distention of gallbladder. He is improving steadily both in hemodynamics as well as in his laboratory data and he most likely must have ischemic cardiomyopathy leading to the recurrent episodes of complications during the operative procedure. The patient has been switched to meropenem because of concerns with the presence of Acinetobacter as well as severity of illness. In that regard, metronidazole can be discontinued since meropenem will cover all the anaerobes involved. He would probably be safe to convert him back to the original regimen of Rocephin and Flagyl, but we will just continue meropenem for the time being. Job ID: [id number]
[2018-09-16] MEDS: Fentanyl 100 MCG/2 ML VIAL SLOW IVP PRN (21:47)
[2018-09-17] MEDS: Fentanyl 100 MCG/2 ML VIAL SLOW IVP PRN (02:52)
[2018-09-17] MEDS: niCARdipine 50 MG in Sodium Chloride 0.9% 250 ML 230 ML IVPB SCH (02:56)
[2018-09-17 06:34] LABS: Anion Gap 16 mmol/L (10-20); BUN (Urea Nitrogen) 31 mg/dL (8.4-25.7); Calc. Creatinine Clearance 30 mL/min (70-130); Carbon Dioxide 24 mmol/L (22-29); Chloride 102 mmol/L (98-107); Estimated GFR-MDRD 17; Glucose 158 mg/dL (70-105); Potassium 3.2 mmol/L (3.5-5.1); Sodium 139 mmol/L (136-145)
[2018-09-17 06:47] LABS: Band 2 % (5-11); Hemoglobin 8.2 g/dL (14.0-18.0); Lymphocytes 4 % (21-51); MDiff Complete? YES; Mean Corpuscular HGB CONC 33.3 g/dL (32.0-36.0); Mean Corpuscular Hemoglobin 29.7 pg (27.0-31.0); Mean Corpuscular Volume 89.1 fL (78.0-98.0); Mean Platelet Volume 6.7 fL (7.4-10.4); Monocytes 1 % (0-10); Neutrophil 93 % (42-75); Platelet Count 319 thou/uL (130-400); RBC Distribution Width 15.3 % (11.5-14.5); Red Blood Cell (RBC) Count 2.77 mill/uL (4.70-6.10)
[2018-09-17] MEDS: Pantoprazole 40 MG VIAL IVP SCH ×2 (09:54→23:10)
--- NOTE | 2018-09-17 10:02 | PRG ---
DATE OF SERVICE: 09/17/2018 SERVICE: Pulmonary Medicine. INTERVAL HISTORY: The patient is doing okay from respiratory standpoint. He is breathing very comfortably. He denies having any chest discomfort, nausea, or vomiting. Last dialysis session was on Tuesday. There were no significant overnight events or cardiac dysrhythmias. PHYSICAL EXAMINATION: VITAL SIGNS: Afebrile, pulse 80, blood pressure 142/68, respirations 16, and saturation 99% on room air. GENERAL: The patient is awake and alert, in no apparent distress. LUNGS: Decent air entry. Crackles are present, but minimal. No prolonged expiratory phase or wheezing is appreciated. HEART: Normal rate, regular. ABDOMEN: Soft, nontender, and nondistended. Bowel sounds are positive. MUSCULOSKELETAL: No cyanosis or clubbing. No pitting in bilateral lower extremities. NEUROLOGIC: Grossly nonfocal. LABORATORY DATA: WBC 14.0, hemoglobin 8.2, and platelets 319,000 and stable. Band count remains low, although the neutrophil count jumped up. INR 1.2. Creatinine 3.64. Basic metabolic profile is otherwise unremarkable except for potassium of 3.2. Significant purulent drainage from the penis is growing presumptive Neeta albicans. Multiple other cultures are positive for Bacteroides, Acinetobacter, Morganella, and Peptostreptococcus. ASSESSMENT: 1. Septic shock, resolving. 2. Acute kidney injury, on dialysis. 3. Necrotizing fasciitis, status post emergent right lower extremity amputation, complicated by stump infection. 4. Pulseless electrical activity, multiple events. 5. Balanitis/purulent drainage coming from penis growing Neeta. DISCUSSION AND PLAN: I will continue to dialyze the patient as needed. At this point, I will transition the patient out of the ICU to the telemetry unit. We will initiate antifungal coverage for the copious amounts of purulent drainage from his penis. He remains a DNAR. Pulmonary/Critical Care will continue to follow along. Job ID: [id number] [facility]
[2018-09-17] MEDS: Carvedilol 6.25 MG TAB PO SCH ×2 (10:05→16:46)
[2018-09-17] MEDS: Micafungin 100 MG in Sodium Chloride 0.9% 100 ML IVPB SCH (10:53)
[2018-09-17] MEDS: Insulin Regular 300 UNITS/3 ML VIAL SC PRN (10:59)
--- NOTE | 2018-09-17 11:50 | PRG ---
DATE OF SERVICE: 09/17/2018 SUBJECTIVE: Ryan Parry is doing well today. His right AKA stump looks good. He has a wound VAC in place. OBJECTIVE: GENERAL: He is awake and alert without complaints. LUNGS: Clear to auscultation. CARDIAC: Regular rate and rhythm without murmur or gallop. ABDOMEN: Soft and nontender. He has been moved to telemetry. LABORATORY DATA: This morning, his white count is 14 and hemoglobin 8.2. Basic metabolic profile unremarkable. ASSESSMENT AND PLAN: Open right above-knee amputation, needs formal closure, we will plan out in mid week. Job ID: [id number]
[2018-09-17] MEDS ORDERED: Heparin 10,000 UNITS/ 10 ML VIAL ONE (12:00)
[2018-09-17] MEDS: MEROPENEM 1 GM/50 ML 1 GM in Premix Bag 1 BAG IVPB SCH (12:09)
[2018-09-18] MEDS: Labetalol HCl 100 MG/20 ML VIAL SLOW IVP PRN ×2 (05:35→11:17)
[2018-09-18 05:53] LABS: Anion Gap 16 mmol/L (10-20); BUN (Urea Nitrogen) 19 mg/dL (8.4-25.7); Calc. Creatinine Clearance 37 mL/min (70-130); Carbon Dioxide 22 mmol/L (22-29); Chloride 104 mmol/L (98-107); Estimated GFR-MDRD 23; Glucose 146 mg/dL (70-105); Potassium 3.5 mmol/L (3.5-5.1); Sodium 138 mmol/L (136-145)
[2018-09-18 05:54] LABS: Band 9 % (5-11); Eosinophils 1 % (0-10); Hemoglobin 7.9 g/dL (14.0-18.0); Lymphocytes 8 % (21-51); MDiff Complete? YES; Mean Corpuscular Hemoglobin 29.8 pg (27.0-31.0); Mean Corpuscular Volume 90.2 fL (78.0-98.0); Mean Platelet Volume 6.7 fL (7.4-10.4); Monocytes 4 % (0-10); Neutrophil 78 % (42-75); Platelet Count 327 thou/uL (130-400); RBC Distribution Width 15.5 % (11.5-14.5); Red Blood Cell (RBC) Count 2.66 mill/uL (4.70-6.10); White Blood Cell (WBC) Count 10.9 thou/uL (4.8-10.8)
[2018-09-18] MEDS: HYDROcodone/Acetaminophen 5/325 mg Tablet PO PRN ×2 (08:14→20:43)
[2018-09-18] MEDS: Fluconazole 100 MG TAB PO SCH (08:15)
[2018-09-18] MEDS: Carvedilol 6.25 MG TAB PO SCH ×2 (08:15→20:42)
[2018-09-18] MEDS: Pantoprazole 40 MG VIAL IVP SCH ×2 (08:15→20:42)
--- NOTE | 2018-09-18 09:13 | PDOC.CTH ---
Cardiology Progress Note - Subjective No complaints. stable - Objective Vital Signs Temp Pulse Resp BP BP Pulse Ox 09/18/18 07:43 97.9 F 72 18 186/79 H 99 09/18/18 06:00 85 164/65 H 09/18/18 05:35 75 198/84 H 09/17/18 23:30 98.9 F 73 18 150/68 H 98 Admit Weight 197 lb 9 oz Weight 197 lb 4.8 oz 09/17/18 09/18/18 09/19/18 06:59 06:59 06:59 Intake Total 1428.4 492.7 Output Total 572 355 Balance 856.4 137.7 - Physical Examination General/Neuro: NAD Neck: carotid US brisk, no JVD present Lungs: CTA, unlabored respirations Heart: PMI normal, RRR Abdomen: NT/ND, soft Extremities: + femoral B - Labs Result Diagrams: 09/18/18 04:54 09/18/18 04:54 Troponin/CKMB CK-MB (CK-2) 1.1 ng/mL (0-6.6) 09/11/18 13:52 Troponin I 0.884 ng/mL (< 0.028) H* 09/11/18 13:52 - Assessment/Plan 1. S/p Cardiac arrest 2. Hypertension - 3. ESRD - 4. S/p Rt AKA on 09/07/2018 due to septic extremity 5. DM - 6. Hypothyroidism - 7. Non-compliance of med 8. Chronic Anemia with S/p 2 PRBC tx on 09/09/2018 - 9. s/p percutaneous drain placement on 09/12/2018 10. Hypotension 2/2 sepsis - resolved CV status stable Wound vac in place. No other changes.
[2018-09-18] MEDS: Micafungin 100 MG in Sodium Chloride 0.9% 100 ML IVPB SCH (09:27)
[2018-09-18] MEDS: EPOETIN ALFA-EPBX (ESRD) 3,000 UNIT/ML VIAL SC SCH (09:28)
[2018-09-18] MEDS ORDERED: Diphenoxylate HCl/Atropine Tablet PO PRN (09:58)
[2018-09-18] MEDS ORDERED: Diphenoxylate HCl/Atropine Tablet PO SCH (10:00)
[2018-09-18] MEDS ORDERED: Carvedilol 6.25 MG TAB PO SCH (10:00)
[2018-09-18] MEDS: Insulin Glargine 10 UNITS in Pre-Filled Syringe 1 EACH SC SCH (11:06)
[2018-09-18] MEDS: Benzonatate 100 MG CAP PO PRN (11:55)
[2018-09-18] MEDS: MEROPENEM 1 GM/50 ML 1 GM in Premix Bag 1 BAG IVPB SCH (11:55)
--- NOTE | 2018-09-18 11:59 | PRG ---
DATE OF SERVICE: 09/18/2018 SUBJECTIVE: Complained of a cough this morning, but denies any shortness of breath. Status post sepsis syndrome. OBJECTIVE: VITAL SIGNS: His blood pressure is 174/82, temperature 97, pulse 72, respiratory rate 18, and sats are 90%. CHEST: No wheezing or crackles. CARDIAC: Normal S1 and S2. No gallops. ABDOMEN: No masses. LABORATORY DATA: Creatinine 2.87. White count 10,000, hemoglobin and hematocrit of 7 and 24. ASSESSMENT: Gas gangrene amputation, renal failure, and cough. PLAN: Appears he has improved substantially. Consider overall emergency surgery. His cough is probably from his renal failure. Hopefully, the dialysis should get better. We will follow. Job ID: [id number]
--- NOTE | 2018-09-18 13:48 | PRG ---
DATE OF SERVICE: 1. Anemia, chronic illness. 2. Mild hypokalemia. PLAN: 1. The patient . 2. We will consider discontinuation of Dietz catheter within the next 24 hours as the patient is not making much . 3. Further management will be dependent on the clinical course. 4. . Job ID: [id number]
--- NOTE | 2018-09-18 13:49 | OP ---
DATE OF PROCEDURE: 09/15/2018 PROCEDURE: Right internal jugular tunneled hemodialysis catheter and left internal jugular central venous line. PREOPERATIVE DIAGNOSES: End-stage renal failure needing permanent access, multiple abscesses of hemodynamic instability requiring central venous access and status post right amputation requiring closure. POSTOPERATIVE DIAGNOSES: End-stage renal failure needing permanent access, multiple abscesses of hemodynamic instability requiring central venous access and status post right amputation requiring closure. HISTORY: Mr. Parry is a critically ill gentleman who has undergone a deep vein amputation above the knee on the right for gangrene of his calf. He has been maintained on the ventilator in the ICU since that time. He has a femoral catheter in place, but this appears to be in the paravertebral artery rather in the inferior vena cava and he requires permanent dialysis access since his renal function has not recovered. The decision was made to take him back to the operating room for placement of tunneled hemodialysis catheter, placement of a central venous catheter for IV access and closure of the right above-knee amputation. DESCRIPTION OF PROCEDURE: After informed consent was obtained from the patient's family, he was taken to the operating room. He was placed in a supine position and general anesthesia was administered. An art line was placed to more closely monitor his hemodynamic status. His neck and chest were prepped and draped in standard sterile fashion. The patient was placed in Trendelenburg and the patent compressible right internal jugular vein was identified using a sterile ultrasound probe, this was passed under direct ultrasound guidance with excellent flow of dark venous nonpulsatile blood. A wire in the superior vena cava. A right IJ tunneled hemodialysis catheter was obtained and tunneled from the infraclavicular right IJ access site. The tract was dilated over a wire and dilator and sheath placed over the wire and the wire and dilator removed . The dialysis catheter was then placed through the sheath which was catheter in placed. This was confirmed to have smooth pass by fluoroscopy, it easily aspirated and easily flushed without resistance. Heparin was instilled catheter was clamped and the right IJ access site was closed in layers with 4-0 Monocryl suture and Dermabond dressings were placed at the right IJ site and the exit line. Attention was then turned to placement of the left IJ central venous catheter. This was done under fluoroscopic guidance using Seldinger technique and the catheter confirms Shortly after the catheter had been placed, the patient became hemodynamically unstable. He dropped his pressure . He was given epinephrine and his blood pressure and pulse both recovered. The central line was secured and addressed and the patient continued to be resuscitated and monitored in the operating. He had another episode of requiring chest compressions and was started on Levophed drip and intermittent as well. case did not show . So he was taken back to the CCU for further monitoring and resuscitation. Job ID: [id number]
--- NOTE | 2018-09-18 15:25 | PRG ---
DATE OF SERVICE: 09/18/2018 SUBJECTIVE: The patient transferred to [facility]. He is awake, alert, oriented, appears well, was having some coughing spells, but has subsided. No headaches. No dyspnea or chest pain. No abdominal pain. No problems with AKA site. OBJECTIVE: VITAL SIGNS: T-max 98.9, blood pressure 170/82, pulse 72, respirations 18, O2 saturation 98%. GENERAL: Chronically ill appearing, but no acute distress, oriented, triple- lumen catheter in left side IJ position, tunneled hemodialysis catheter in the right IJ position. HEENT: Ocular movements conjugate. LUNGS: Clear breath sounds. HEART: S1 and S2, regular rate. ABDOMEN: Soft, not distended. EXTREMITIES: Negative pressure dressing over the AKA stump side. LABORATORY DATA: White cell count 10.9, hemoglobin 7.9, platelets 327, 78% neutrophils. Creatinine 2.87, sodium 138. Microbiology with previously noted, the culture from the penile meatus drainage with Neeta albicans. C difficile from yesterday was negative. ASSESSMENT AND DISCUSSION: Type 2 diabetes, neuropathy, peripheral vascular disease, necrotizing infection of right lower extremity, status post above knee amputation; tachyarrhythmias and bradyarrhythmias, extended episodes of severe bradycardia with recurrence, possible ischemic cardiomyopathy, cholecystostomy drainage for concern with acute cholecystitis. The patient is currently on meropenem to cover the bacteremia other antimicrobial coverage needed for the organisms in this stump. Now, the patient has had a successful recovery from the acute inflammatory process. The bacteremia can be further managed with oral Flagyl and the meropenem could conceivably be discontinued since the bile fluid showed few wbc's and no organisms were seen. Job ID: [id number] [facility]
[2018-09-18] MEDS: Insulin Regular 300 UNITS/3 ML VIAL SC PRN (17:49)
--- NOTE | 2018-09-18 18:45 | PRG ---
DATE OF SERVICE: 09/18/2018 SUBJECTIVE: The patient is seen and examined. Continued to improve. Noted with the following vital signs. OBJECTIVE: VITAL SIGNS: Afebrile, temperature 98.2, pulse 70, respiratory rate 18, O2 saturation 97%, blood pressure 129/74. HEENT: Unremarkable. CARDIOVASCULAR: First and second heart sounds were heard. RESPIRATORY: Clear to auscultation. DIGESTIVE: Benign abdomen with positive bowel sounds. EXTREMITIES: Some upper extremity puffy hand. LABORATORY INVESTIGATION: Hemoglobin 7.9. Chemistry showed a creatinine of 2.87. IMPRESSION: 1. Acute on chronic kidney disease to the point of end-stage renal disease, oliguric. 2. Probably anemia of chronic illness and chronic kidney disease. 3. Cardiopulmonary failure, status post successful extubation. 4. Necrotizing gangrene, status post amputation. PLAN: 1. We will hold off dialysis today. The patient is known to be on a Tuesday, scheduled dialysis. 2. We will begin to connect with the case sealer vis-a-vis outpatient dialysis placement. 3. Renally dose all medications and avoid potentially nephrotoxic agents. 4. Further management will be dependent on the clinical course. Job ID: [id number]
[2018-09-19] MEDS ORDERED: Tuberculin PPD 0.1 ML VIAL I-DERMAL SCH ×3 (03:00→13:45)
[2018-09-19 06:48] LABS: Band 1 % (5-11); Eosinophils 3 % (0-10); Hemoglobin 8.3 g/dL (14.0-18.0); Lymphocytes 6 % (21-51); MDiff Complete? YES; Mean Corpuscular HGB CONC 33.7 g/dL (32.0-36.0); Mean Corpuscular Hemoglobin 30.1 pg (27.0-31.0); Mean Corpuscular Volume 89.4 fL (78.0-98.0); Mean Platelet Volume 6.7 fL (7.4-10.4); Monocytes 7 % (0-10); Neutrophil 83 % (42-75); Platelet Count 333 thou/uL (130-400); RBC Distribution Width 15.2 % (11.5-14.5); Red Blood Cell (RBC) Count 2.75 mill/uL (4.70-6.10); White Blood Cell (WBC) Count 11.5 thou/uL (4.8-10.8)
[2018-09-19 06:51] LABS: Anion Gap 9 mmol/L (10-20); BUN (Urea Nitrogen) 28 mg/dL (8.4-25.7); Calc. Creatinine Clearance 28 mL/min (70-130); Calcium 8.1 mg/dL (7.8-10.44); Carbon Dioxide 28 mmol/L (22-29); Chloride 102 mmol/L (98-107); Estimated GFR-MDRD 17; Glucose 98 mg/dL (70-105); Potassium 3.7 mmol/L (3.5-5.1); Sodium 135 mmol/L (136-145)
--- NOTE | 2018-09-19 08:07 | PDOC.CTH ---
Cardiology Progress Note - Subjective The pt seen and examined. No cardiac complaints. He is having breakfast without any difficulties. - Objective Vital Signs Temp Pulse Resp BP BP Pulse Ox 09/19/18 03:34 98.2 F 69 16 145/73 H 93 L 09/18/18 23:37 72 140/63 09/18/18 20:42 175/80 H Admit Weight 197 lb 9 oz Weight 198 lb 09/18/18 09/19/18 09/20/18 06:59 06:59 06:59 Intake Total 492.7 100 Output Total 355 45 Balance 137.7 55 - Physical Examination General/Neuro: alert & oriented x3 Neck: no JVD present Lungs: CTA Heart: RRR Abdomen: soft Extremities: other: (Wound Vac to RLE; mild generalized edema) - Telemetry Telemetry Rhythm: SR, PACs. - Labs Result Diagrams: 09/19/18 05:53 09/19/18 05:53 Troponin/CKMB CK-MB (CK-2) 1.1 ng/mL (0-6.6) 09/11/18 13:52 Troponin I 0.884 ng/mL (< 0.028) H* 09/11/18 13:52 - Assessment/Plan 1. S/p Cardiac arrest @ OR 2/2 acidosis, sepsis induced 2. Hypertension - Coreg was increased to 12.5mg BID and Nifidipine 30mg qd will be started from today. 3. ESRD - on HD on , , Sat 4. S/p Rt AKA on 09/07/2018 due to septic extremity with a wound vac 5. DM - 6. Hypotyrodism - 7. Non-compliance of med 8. Chronic Anemia with S/p 2 PRBC tx on 09/09/2018 - On Epoetin 9. s/p percutaneous drain placement on 09/12/2018 10. Hypotension 2/2 sepsis - resolved MAR reviewed * Vein study showed no DVT. * Echo on 09/07/2018 with EF 55-60%, severe ERV, dilated LA, and mod ERA * Echo on 09/13/2018 with EF 50-55%, diastolic dysfunction, mild dilated LA, mild MR, and trace TR. * He may benefit from a cardiac cath in the future if he is agreeable. Pt. seen and eval. by me. I agree with the A/P by the AUTOMATIC LATHE SETTER.He has no complaints today. He is presently in dialysis. He does not recall many events since admission. He remembers his step-son bringing him to the hospital for abdominal pain. He denies any prior cardiac history. Chest: clear. CV: RRR. No edema. Continue present cardiac therapy. gjmays Review of Systems - Review of Systems Constitutional: reports: no symptoms reported EENTM: reports: no symptoms reported Respiratory: reports: no symptoms reported Cardiac (ROS): reports: no symptoms reported ABD/GI: reports: no symptoms reported : reports: no symptoms reported
[2018-09-19] MEDS: Carvedilol 6.25 MG TAB PO SCH ×2 (08:48→20:55)
[2018-09-19] MEDS: metroNIDAZOLE 500 MG TAB PO SCH ×3 (08:48→20:54)
[2018-09-19] MEDS: Fluconazole 100 MG TAB PO SCH (08:51)
[2018-09-19] MEDS: NIFEdipine XL 30 MG TAB PO SCH (08:52)
[2018-09-19] MEDS: Pantoprazole 40 MG VIAL IVP SCH ×2 (08:52→20:55)
[2018-09-19] MEDS: Insulin Glargine 10 UNITS in Pre-Filled Syringe 1 EACH SC SCH (08:52)
[2018-09-19] MEDS: HYDROcodone/Acetaminophen 5/325 mg Tablet PO PRN ×2 (09:33→20:54)
[2018-09-19] MEDS: Micafungin 100 MG in Sodium Chloride 0.9% 100 ML IVPB SCH (09:35)
[2018-09-19] MEDS: Acetaminophen 325 MG TAB PO PRN (11:12)
[2018-09-19] MEDS: Insulin Regular 300 UNITS/3 ML VIAL SC PRN (11:26)
--- NOTE | 2018-09-19 13:56 | RAD ---
Modified barium swallow. HISTORY: Aspiration, dysphagia R13.1, feeding difficulties R63.3. Various consistencies of barium sulfate were given orally. Spot images obtained. Radiation dosimetry is 1.9 minutes of fluoroscopy and DAP of 1.16 Gy*cm2. Various consistencies of barium sulfate were given. The patient demonstrated no evidence of lore asp iration. With repeated episodes there is some vallecular pooling which did clear out with repeated episodes of swallowing. No evidence of aspiration seen. IMPRESSION: Normal modified barium swallow. Transcribed Date/Time: 09/19/2018 2:02 PM
[2018-09-19] MEDS: EPOETIN ALFA-EPBX (ESRD) 3,000 UNIT/ML VIAL SC SCH (17:40)
--- NOTE | 2018-09-19 18:10 | PRG ---
DATE OF SERVICE: 09/19/2018 SUBJECTIVE: The patient is seen and examined. Seems to be continuing to do much better. Noted with the following vital signs. OBJECTIVE: VITAL SIGNS: Afebrile, temperature 98.3, pulse 65, respiratory rate of 18, O2 saturations are 97% with blood pressure of 167/73. HEENT: Unremarkable. CARDIOVASCULAR SYSTEM: First and second heart sounds were heard. RESPIRATORY SYSTEM: Clear to auscultation. DIGESTIVE SYSTEM: Revealed a benign abdomen. EXTREMITIES: No peripheral edema. SKIN: No new gross rash. LYMPHATICS: No peripheral lymphadenopathy. LABORATORY INVESTIGATION: Showed a hemoglobin of 8.3 with a white count of 11,500. Chemistry showed a creatinine of 3.74, BUN of 28. IMPRESSION: 1. Acute on chronic kidney disease end-stage renal disease, oliguric. 2. Cardiopulmonary failure, resolved. 3. Sepsis, on treatment, much improved. 4. Anemia of critical illness. PLAN: 1. The patient to continue with erythropoietin stimulating agent. 2. The patient is now on Tuesday, , Tuesday schedule dialysis. 3. Case management consult for outpatient dialysis placement planning. 4. Renally dose all medications and avoid potentially nephrotoxic agents. 5. Further management will be dependent on the clinical course. Job ID: [id number]
--- NOTE | 2018-09-19 18:43 | PRG ---
DATE OF SERVICE: 09/19/2018 Ryan Parry is doing well today. I am seeing him for Dr. Quick. Plan is to formally close his right [id number]-[id number] amputation. Consideration of wound VAC was given, but his femur protrudes and this is not appropriate. He will need formal higher amputation to close this problem. His hemoglobin is 8.3. Electrolytes are unremarkable. He is undergoing dialysis, Tuesday, today. We will plan type and cross 2 units of blood, transfusion of blood intraoperatively, and amputation of the right leg with subsequent rehab consult. He understands the risks and benefits, and consents. Job ID: [id number]
[2018-09-20] MEDS ORDERED: CEFAZOLIN 2 GM in Premix Bag 1 BAG IVPB SCH ×2 (04:45→05:00)
[2018-09-20 05:02] LABS: Anion Gap 11 mmol/L (10-20); BUN (Urea Nitrogen) 14 mg/dL (8.4-25.7); Calc. Creatinine Clearance 45 mL/min (70-130); Calcium 7.7 mg/dL (7.8-10.44); Carbon Dioxide 27 mmol/L (22-29); Chloride 103 mmol/L (98-107); Estimated GFR-MDRD 29; Glucose 91 mg/dL (70-105); Sodium 137 mmol/L (136-145)
[2018-09-20 05:13] LABS: Band 6 % (5-11); Eosinophils 1 % (0-10); Hemoglobin 8.2 g/dL (14.0-18.0); Lymphocytes 8 % (21-51); MDiff Complete? YES; Mean Corpuscular HGB CONC 32.9 g/dL (32.0-36.0); Mean Corpuscular Hemoglobin 29.7 pg (27.0-31.0); Mean Corpuscular Volume 90.2 fL (78.0-98.0); Mean Platelet Volume 6.5 fL (7.4-10.4); Monocytes 5 % (0-10); Neutrophil 80 % (42-75); Platelet Count 332 thou/uL (130-400); RBC Distribution Width 15.4 % (11.5-14.5); Red Blood Cell (RBC) Count 2.75 mill/uL (4.70-6.10); White Blood Cell (WBC) Count 10.3 thou/uL (4.8-10.8)
[2018-09-20] MEDS: Carvedilol 6.25 MG TAB PO SCH ×2 (08:48→21:25)
[2018-09-20] MEDS: Insulin Glargine 10 UNITS in Pre-Filled Syringe 1 EACH SC SCH (08:48)
[2018-09-20] MEDS: Fluconazole 100 MG TAB PO SCH (08:48)
[2018-09-20] MEDS: NIFEdipine XL 30 MG TAB PO SCH (08:48)
[2018-09-20] MEDS: Micafungin 100 MG in Sodium Chloride 0.9% 100 ML IVPB SCH (08:49)
[2018-09-20] MEDS: Pantoprazole 40 MG VIAL IVP SCH ×2 (08:49→21:25)
[2018-09-20] MEDS: metroNIDAZOLE 500 MG TAB PO SCH ×3 (08:49→21:25)
[2018-09-20] MEDS ORDERED: Heparin 10,000 UNITS/ 10 ML VIAL ONE (10:00)
--- NOTE | 2018-09-20 11:01 | PDOC.CTH ---
Cardiology Progress Note - Subjective The pt seen and examined. No overnight events. No cardiac complaints. - Objective Vital Signs Temp Pulse Resp BP Pulse Ox 09/20/18 07:34 98.3 F 72 14 156/72 H 97 09/20/18 04:00 98.2 F 68 18 143/67 H 96 09/19/18 23:56 71 147/70 H Admit Weight 197 lb 9 oz Weight 197 lb 09/19/18 09/20/18 09/21/18 06:59 06:59 06:59 Intake Total 100 100 Output Total 45 100 Balance 55 0 - Physical Examination General/Neuro: alert & oriented x3 Neck: no JVD present Lungs: CTA Heart: RRR Abdomen: soft Extremities: other: - Telemetry Telemetry Rhythm: SR with PVCs - Labs Result Diagrams: 09/20/18 04:11 09/20/18 04:11 Troponin/CKMB CK-MB (CK-2) 1.1 ng/mL (0-6.6) 09/11/18 13:52 Troponin I 0.884 ng/mL (< 0.028) H* 09/11/18 13:52 - Assessment/Plan 1. S/p Cardiac arrest @ OR 2/2 acidosis, sepsis induced 2. Hypertension - Coreg was increased to 12.5mg BID and Nifidipine 30mg qd will be started from today. 3. ESRD - on HD on , , Sat 4. S/p Rt AKA on 09/07/2018 due to septic extremity with a wound vac; 5. DM - 6. Hypotyrodism - 7. Non-compliance of med 8. Chronic Anemia with S/p 2 PRBC tx on 09/09/2018 - On Epoetin 9. s/p percutaneous drain placement on 09/12/2018 10. Hypotension 2/2 sepsis - resolved MAR reviewed * Vein study showed no DVT. * Echo on 09/07/2018 with EF 55-60%, severe ERV, dilated LA, and mod ERA * Echo on 09/13/2018 with EF 50-55%, diastolic dysfunction, mild dilated LA, mild MR, and trace TR. * He may benefit from a cardiac cath in the future if he is agreeable but I would proceed with a stress test first. Pt. seen and eval. by me. I agree with the A/P by the SPECIAL EVENTS DRIVER. He is doing well s/p right leg amputation revision today. No problems from a cardiac standpoint today during surgery. Chest clear, RRR. No edema. gjmays Review of Systems - Review of Systems Constitutional: reports: no symptoms reported EENTM: reports: no symptoms reported Respiratory: reports: no symptoms reported Cardiac (ROS): reports: no symptoms reported ABD/GI: reports: no symptoms reported : reports: no symptoms reported Musculoskeletal: reports: no symptoms reported
[2018-09-20] MEDS ORDERED: Ropivacaine 0.5% HCl/PF (150 MG/30 ML VIAL) ONE (13:00)
[2018-09-20] MEDS ORDERED: Bupivacaine HCl 0.5%/Epinephrine 1:200,000/PF 30 ml Vial ONE (13:00)
--- NOTE | 2018-09-20 14:41 | PRG ---
DATE OF SERVICE: 09/20/2018 SUBJECTIVE: The patient noted with the following vital signs. OBJECTIVE: VITAL SIGNS: Afebrile, temperature 98.4, pulse 79, respiratory rate of 18, O2 saturations are 95% with blood pressure 166/65. HEENT: Unremarkable. CARDIOVASCULAR: First and second heart sounds were heard. RESPIRATORY: Clear to auscultation. DIGESTIVE: Revealed a benign abdomen. EXTREMITIES: No peripheral edema. SKIN: No new gross rash. LYMPHATICS: No peripheral lymphadenopathy. IMPRESSION: 1. Acute on chronic kidney disease, ascending to end-stage renal disease. 2. Sepsis. 3. Anemia of critical illness. PLAN: 1. The patient to continue with Tuesday, , Tuesday hemodialysis schedule. 2. Erythropoiesis stimulating agents. 3. Further management will be dependent on the clinical course. Job ID: [id number]
[2018-09-20] MEDS ORDERED: Fentanyl 100 MCG/2 ML VIAL ONE (14:58)
[2018-09-20] MEDS ORDERED: Midazolam HCl 2 mg/2 ml Vial ONE (14:58)
[2018-09-20] MEDS ORDERED: Ketamine 50 MG/ML (10ML VIAL) ONE (14:59)
[2018-09-20] MEDS ORDERED: Norepinephrine 8 MG/0.9% NS 0 ML ONE (15:19)
[2018-09-20] MEDS ORDERED: Promethazine HCl 25 MG/ML VIAL IM PRN (16:52)
[2018-09-20] MEDS ORDERED: Ondansetron HCl/PF 4 MG/2 ML Vial IVP PRN (16:52)
[2018-09-20] MEDS ORDERED: Promethazine HCl 25 MG/ML VIAL SLOW IVP PRN (16:52)
[2018-09-20] MEDS: HYDROcodone/Acetaminophen 5/325 mg Tablet PO PRN ×2 (18:21→22:18)
--- NOTE | 2018-09-20 22:56 | OP ---
DATE OF PROCEDURE: 09/20/2018 PREOPERATIVE DIAGNOSES: Gas gangrene, right leg, status post guillotine amputation above the knee, in need of closure, acute renal failure, on dialysis. POSTOPERATIVE DIAGNOSES: Gas gangrene, right leg, status post guillotine amputation above the knee, in need of closure, acute renal failure, on dialysis. PROCEDURE PERFORMED: Right rfyno-kax-nfeo amputation. ANESTHESIA: TIVA, regional. ESTIMATED BLOOD LOSS: 200 mL, 2 units of blood transfused perioperatively. DESCRIPTION OF PROCEDURE: The patient was taken to the operating room where under regional and TIVA anesthesia, the right lower extremity was prepared with Betadine and draped in routine fashion. Incision was made for a fishmouth incision for right mgqsh-xhz-ctgq amputation above the previously guillotine amputation stump. The VAC left in place to sequester that wound. Incision was carried down through the skin and subcutaneous tissue, fascia, divided the muscle bundles with the cautery and vascular bundles between clamps, ligated with 2-0 silk ties. The sciatic nerve divided between clamps, ligated with 2-0 silk ties. Good hemostasis was obtained with cautery as the femur transected with a Gigli saw, smoothed with a rasp, and wound irrigated. Fascia was approximated with 2-0 Vicryl, skin with giovanny. Sterile dressing was applied. Job ID: [id number]
[2018-09-21] MEDS: HYDROcodone/Acetaminophen 5/325 mg Tablet PO PRN ×4 (02:24→22:25)
[2018-09-21 05:13] LABS: Anion Gap 13 mmol/L (10-20); BUN (Urea Nitrogen) 23 mg/dL (8.4-25.7); Calc. Creatinine Clearance 31 mL/min (70-130); Calcium 7.9 mg/dL (7.8-10.44); Carbon Dioxide 26 mmol/L (22-29); Chloride 102 mmol/L (98-107); Estimated GFR-MDRD 19; Glucose 158 mg/dL (70-105); Potassium 4.4 mmol/L (3.5-5.1); Sodium 137 mmol/L (136-145)
[2018-09-21 05:20] LABS: Band 2 % (5-11); Eosinophils 2 % (0-10); Lymphocytes 5 % (21-51); MDiff Complete? YES; Mean Corpuscular HGB CONC 32.2 g/dL (32.0-36.0); Mean Corpuscular Hemoglobin 29.5 pg (27.0-31.0); Mean Corpuscular Volume 91.6 fL (78.0-98.0); Mean Platelet Volume 6.5 fL (7.4-10.4); Monocytes 6 % (0-10); Neutrophil 85 % (42-75); Platelet Count 325 thou/uL (130-400); RBC Distribution Width 15.1 % (11.5-14.5); White Blood Cell (WBC) Count 11.1 thou/uL (4.8-10.8)
[2018-09-21] MEDS: NIFEdipine XL 30 MG TAB PO SCH (09:54)
[2018-09-21] MEDS: Pantoprazole 40 MG VIAL IVP SCH ×2 (09:54→20:57)
[2018-09-21] MEDS: metroNIDAZOLE 500 MG TAB PO SCH ×3 (09:54→20:57)
[2018-09-21] MEDS: Fluconazole 100 MG TAB PO SCH (09:54)
[2018-09-21] MEDS: Carvedilol 6.25 MG TAB PO SCH ×2 (09:54→20:56)
[2018-09-21] MEDS: Insulin Glargine 10 UNITS in Pre-Filled Syringe 1 EACH SC SCH (09:55)
[2018-09-21] MEDS: Micafungin 100 MG in Sodium Chloride 0.9% 100 ML IVPB SCH (10:09)
[2018-09-21] MEDS ORDERED: Heparin 10,000 UNITS/1 ML VIAL ONE (11:11)
--- NOTE | 2018-09-21 13:26 | PDOC.CTH ---
Cardiology Progress Note - Subjective The pt seen and examined. No overnight events. No cardiac complaints. - Objective Vital Signs Temp Pulse Pulse Pulse Pulse Resp BP 09/21/18 09:08 74 69 09/21/18 09:07 69 79 124/58 L 09/21/18 07:21 98.0 F 76 13 09/21/18 02:27 98.1 F 71 18 BP BP BP Pulse Ox Pulse Ox Pulse Ox 09/21/18 09:08 101/55 L 124/58 L 99 95 09/21/18 09:07 101/55 L 09/21/18 07:21 149/66 H 96 09/21/18 02:27 137/66 96 Admit Weight 197 lb 9 oz Weight 195 lb 6 oz 09/20/18 09/21/18 09/22/18 06:59 06:59 06:59 Intake Total 100 300 Output Total 100 75 Balance 0 225 - Physical Examination General/Neuro: alert & oriented x3 Neck: no JVD present Lungs: CTA Heart: RRR Abdomen: soft Extremities: other: (No edema; dry dressing to RLE) - Telemetry Telemetry Rhythm: SR with PVCs - Labs Result Diagrams: 09/21/18 04:38 09/21/18 04:38 Troponin/CKMB CK-MB (CK-2) 1.1 ng/mL (0-6.6) 09/11/18 13:52 Troponin I 0.884 ng/mL (< 0.028) H* 09/11/18 13:52 - Assessment/Plan 1. S/p Cardiac arrest @ OR 2/2 acidosis, sepsis induced - the pt could tolerate during Rt leg amputation revision. Will order stress test. 2. Hypertension - stable. 3. ESRD - on HD on , , Sat 4. S/p Rt AKA on 09/07/2018 due to septic extremity and s/p right leg amputation revision on 09/20/2018 5. DM - 6. Hypotyrodism - 7. Non-compliance of med 8. Chronic Anemia with S/p 2 PRBC tx on 09/09/2018 - On Epoetin 9. s/p percutaneous drain placement on 09/12/2018 10. Hypotension 2/2 sepsis - resolved MAR reviewed * Vein study showed no DVT. * Echo on 09/07/2018 with EF 55-60%, severe ERV, dilated LA, and mod ERA * Echo on 09/13/2018 with EF 50-55%, diastolic dysfunction, mild dilated LA, mild MR, and trace TR. * He may benefit from a cardiac cath in the future if he is agreeable but I would proceed with a stress test first. Pt. seen and eval. by me. I agree with the A/P by the OFFSET PRESS OPERATOR APPRENTICE. Chest clear. RRR. no edema. plan for nuclear stress test in AM Review of Systems - Review of Systems Constitutional: reports: no symptoms reported EENTM: reports: no symptoms reported Respiratory: reports: no symptoms reported Cardiac (ROS): reports: no symptoms reported ABD/GI: reports: no symptoms reported : reports: no symptoms reported Musculoskeletal: reports: no symptoms reported Skin: reports: no symptoms reported
--- NOTE | 2018-09-21 15:01 | PRG ---
DATE OF SERVICE: 09/21/2018 SUBJECTIVE: Ryan Parry is doing well today. He is status post closure of his AKA guillotine amputation site yesterday. His hemoglobin was 8 after 2 units of blood transfused intraoperatively. White count 11. He denies any chest pain. His pain is well controlled. His BUN is 23, creatinine 3.3, GFR 19. ASSESSMENT AND PLAN: Overall, the patient is doing well. Plan is to take down his dressing in 24 to 48 hours to look at the wound. health safety manager and rehab have been consulted. The patient is fit to go to rehab at some time. I have talked to Dr. Kolton Red about performing a stress test prior to discharge and a nuclear medicine stress test has been ordered. The patient would be ready to go to rehab, possibly in 24 to 48 hours. Job ID: [id number]
[2018-09-21] MEDS: EPOETIN ALFA-EPBX (ESRD) 3,000 UNIT/ML VIAL SC SCH (17:07)
--- NOTE | 2018-09-21 19:31 | PRG ---
DATE OF SERVICE: 09/21/2018 SUBJECTIVE: The patient continues to improve. Noted with the following vital signs. OBJECTIVE: VITAL SIGNS: Afebrile, temperature 97.6, pulse 77, respiratory rate of 17, O2 saturations are 95% with blood pressure 134/62. HEENT: Unremarkable. Moist oral mucosa. NECK: Supple. No conjunctival injection or icterus. CARDIOVASCULAR SYSTEM: First and second heart sounds were heard. RESPIRATORY SYSTEM: Clear to auscultation. DIGESTIVE SYSTEM: Revealed a benign abdomen. EXTREMITIES: Showed evidence of recent bony amputation, which is non-closed surgically. IMPRESSION: 1. End-stage renal disease, on hemodialysis. 2. Sepsis, improved. 3. Necrotizing fasciitis, status post above-knee amputation. 4. Anemia of chronic kidney disease. PLAN: 1. We will continue this patient on erythropoiesis stimulating agents. 2. Outpatient dialysis placement, case management on board. 3. Renal replacement therapy on Tuesday, , and Tuesday schedule. 4. Further management to be dependent on the clinical course. Job ID: [id number]
[2018-09-21] MEDS: READ PPD TEST SITE PO SCH (20:06)
[2018-09-22] MEDS: HYDROcodone/Acetaminophen 5/325 mg Tablet PO PRN ×4 (02:29→22:05)
[2018-09-22] MEDS: NIFEdipine XL 30 MG TAB PO SCH (05:15)
[2018-09-22] MEDS: Fluconazole 100 MG TAB PO SCH (05:16)
[2018-09-22] MEDS: metroNIDAZOLE 500 MG TAB PO SCH ×3 (05:16→20:57)
[2018-09-22] MEDS: Pantoprazole 40 MG VIAL IVP SCH ×2 (05:16→20:57)
[2018-09-22 06:14] LABS: Band 7 % (5-11); Eosinophils 2 % (0-10); Hemoglobin 7.7 g/dL (14.0-18.0); Lymphocytes 9 % (21-51); MDiff Complete? YES; Mean Corpuscular HGB CONC 32.2 g/dL (32.0-36.0); Mean Corpuscular Hemoglobin 29.2 pg (27.0-31.0); Mean Corpuscular Volume 90.8 fL (78.0-98.0); Mean Platelet Volume 6.3 fL (7.4-10.4); Monocytes 5 % (0-10); Neutrophil 77 % (42-75); Platelet Count 345 thou/uL (130-400); Platelet Morphology Comment Appears Adequate; RBC Distribution Width 15.1 % (11.5-14.5); Red Blood Cell (RBC) Count 2.63 mill/uL (4.70-6.10); White Blood Cell (WBC) Count 10.1 thou/uL (4.8-10.8)
[2018-09-22 06:19] LABS: Anion Gap 11 mmol/L (10-20); BUN (Urea Nitrogen) 15 mg/dL (8.4-25.7); Calc. Creatinine Clearance 36 mL/min (70-130); Carbon Dioxide 29 mmol/L (22-29); Chloride 100 mmol/L (98-107); Estimated GFR-MDRD 25; Glucose 114 mg/dL (70-105); Potassium 3.5 mmol/L (3.5-5.1); Sodium 136 mmol/L (136-145)
[2018-09-22] MEDS: Carvedilol 6.25 MG TAB PO SCH ×2 (09:25→20:57)
[2018-09-22] MEDS: Insulin Glargine 10 UNITS in Pre-Filled Syringe 1 EACH SC SCH (09:40)
--- NOTE | 2018-09-22 09:45 | PRG ---
DATE OF SERVICE: 09/22/2018 SUBJECTIVE: Ryan Parry was doing well today. His dressings at the right AKA stump were dry. OBJECTIVE: VITAL SIGNS: Temperature 98 degrees, pulse rate 65, and blood pressure 145/69. LUNGS: Clear to auscultation. CARDIAC: Regular rate and rhythm without murmur or gallop. ABDOMEN: Soft and nontender. EXTREMITIES: AKA dressing is dry. LABORATORY DATA: Hemoglobin this morning is 7.7, decreased from 8 yesterday. No significant change. White count 10, GFR 25, creatinine 2.68, BUN 15. Gallbladder tube drainage, not recorded. Output Dietz, 75 mL. ASSESSMENT/PLAN: 1. Status post tgxng-hsh-sbdw amputation closure. We would plan to remove this dressing tomorrow. Begin washing the wound daily with soap and water, apply antibiotic ointment, Telfa, and stump welder first class. We will ask [facility] to product stump welder first class for him. The patient will need rehab postoperatively and we will ask them to screen him and begin arrangements for that. 2. Acute renal failure, per Nephrology, dialysis. He has a cuffed tunneled dialysis catheter. 3. Deconditioning. Transfer to rehab when able. 4. Coronary artery disease. Suspect undergoing cardiac stress test today. 5. Chronic anemia, stable. He received 2 units of blood perioperatively and his hemoglobin remained stable. 6. Cholecystostomy drain tube, nurses are not recording the output and this should be recorded daily. This tube can be removed in approximately 2 weeks after placement. Job ID: [id number]
[2018-09-22] MEDS ORDERED: Regadenoson 0.4 MG/5 ML SYRINGE ONE (10:27)
[2018-09-22 13:16] VITALS: BMI 26.4
[2018-09-22] MEDS: Micafungin 100 MG in Sodium Chloride 0.9% 100 ML IVPB SCH (14:00)
--- NOTE | 2018-09-22 14:02 | PDOC.CTH ---
Cardiology Progress Note - Subjective The pt seen and examined. No overnight events. No cardiac complaints. - Objective Vital Signs Temp Pulse Resp BP BP Pulse Ox 09/22/18 12:00 97.8 F 73 16 122/61 91 L 09/22/18 07:38 98.0 F 65 19 145/69 H 95 09/22/18 06:31 65 173/73 H 09/22/18 05:19 65 162/91 H 09/22/18 03:00 98.1 F 65 18 167/81 H 94 L 09/22/18 02:31 62 149/108 H Admit Weight 197 lb 9 oz Weight 184 lb 1.376 oz 09/21/18 09/22/18 09/23/18 06:59 06:59 06:59 Intake Total 300 Output Total 75 Balance 225 - Physical Examination General/Neuro: alert & oriented x3 Neck: no JVD present Lungs: CTA Heart: RRR Abdomen: soft Extremities: other: (No edema) - Telemetry Telemetry Rhythm: SR - Labs Result Diagrams: 09/22/18 05:49 09/22/18 05:49 Troponin/CKMB CK-MB (CK-2) 1.1 ng/mL (0-6.6) 09/11/18 13:52 Troponin I 0.884 ng/mL (< 0.028) H* 09/11/18 13:52 - Assessment/Plan 1. S/p Cardiac arrest @ OR 2/2 acidosis, sepsis induced - no further arhythmias during the repeat Rt leg amputation revision. stress test was done today. 2. Hypertension - stable. 3. ESRD - on HD on , Sat 4. S/p Rt AKA on 09/07/2018 due to septic extremity and s/p right leg amputation revision on 09/20/2018 5. DM - 6. Hypotyrodism - 7. Non-compliance of med 8. Chronic Anemia with S/p 2 PRBC tx on 09/09/2018 - On Epoetin 9. s/p percutaneous drain placement to the gallbladder on 09/12/2018 10. Hypotension 2/2 sepsis - resolved MAR reviewed * Vein study showed no DVT. * Echo on 09/07/2018 with EF 55-60%, severe ERV, dilated LA, and mod ERA * Echo on 09/13/2018 with EF 50-55%, diastolic dysfunction, mild dilated LA, mild MR, and trace TR. stress test today to r/o ischemia as a possible etiology of the cardiac arrest. NO ISCHEMIA noted on the stress test. Cardiac status is stable. I will sign off. Okay for rehab at any time. Review of Systems - Review of Systems Constitutional: reports: no symptoms reported EENTM: reports: no symptoms reported Respiratory: reports: no symptoms reported Cardiac (ROS): reports: no symptoms reported ABD/GI: reports: no symptoms reported : reports: no symptoms reported Musculoskeletal: reports: no symptoms reported
[2018-09-22] MEDS: READ PPD TEST SITE PO SCH (14:54)
--- NOTE | 2018-09-22 15:03 | NM ---
Nuclear medicine Cardiac myocardial perfusion SPECT Ejection fraction study Wall motion cine: DATE: 09/22/2018 HISTORY: 58-year-old male with end-stage renal disease, hypertension, and diabetes mellitus, is recently statu s post cardiac arrest. TECHNIQUE: Number of days:1 Rest study: Technetium 99m-sestamibi (Cardiolite) dose:9.6 mCi Pharmacologic stress: Lexiscan dose:0.4 mg Stress study: Technetium 99m-sestamibi (Cardiolite) dose:27 mCi FINDINGS: Cardiac (myocardial perfusion) SPECT There are no reversible myocardial perfusion defects. There is a small inferolateral wall fixed perfusion defect. Ejection fraction study Left ventricular EF = 55% Wall motion cine Normal IMPRESSION: 1. No evidence of reversible ischemia. 2. Probable small infarction/scar at inferior lateral wall.
[2018-09-22] MEDS: Insulin Regular 300 UNITS/3 ML VIAL SC PRN (17:47)
--- NOTE | 2018-09-22 19:23 | PRG ---
DATE OF SERVICE: 09/22/2018 SUBJECTIVE: The patient is seen and examined. Still confused to maintain a sustained clinical improvement, did very well. Noted with the following vital signs. OBJECTIVE: VITAL SIGNS: Afebrile, temperature 97.6, pulse 75, respiratory rate of 18, O2 saturation of 94% with blood pressure 128/60. HEENT: Unremarkable. Moist oral mucosa. NECK: Supple. No conjunctival injection or icterus. CARDIOVASCULAR SYSTEM: First and second heart sounds were heard. RESPIRATORY SYSTEM: Clear to auscultation. DIGESTIVE SYSTEM: Revealed a benign abdomen with positive bowel sounds. EXTREMITIES: No peripheral edema. SKIN: No new gross rash. LYMPHATICS: No peripheral lymphadenopathy. IMPRESSION: 1. End-stage renal disease, on hemodialysis. 2. Sepsis, improved. 3. Necrotizing fasciitis, status post [id number]. PLAN: 1. We will continue with current schedule of dialysis on Tuesday, , and Tuesday. 2. Outpatient dialysis placement, case management on the case. 3. Further management to be dependent on the clinical course. Job ID: [id number]
[2018-09-23] MEDS: HYDROcodone/Acetaminophen 5/325 mg Tablet PO PRN ×4 (03:14→21:16)
[2018-09-23 05:24] LABS: Anion Gap 9 mmol/L (10-20); BUN (Urea Nitrogen) 26 mg/dL (8.4-25.7); Calc. Creatinine Clearance 28 mL/min (70-130); Calcium 7.7 mg/dL (7.8-10.44); Carbon Dioxide 27 mmol/L (22-29); Chloride 95 mmol/L (98-107); Estimated GFR-MDRD 19; Glucose 218 mg/dL (70-105); Potassium 3.4 mmol/L (3.5-5.1); Sodium 128 mmol/L (136-145)
[2018-09-23 05:30] LABS: Band 2 % (5-11); Eosinophils 1 % (0-10); Hemoglobin 7.5 g/dL (14.0-18.0); Lymphocytes 5 % (21-51); MDiff Complete? YES; Mean Corpuscular HGB CONC 32.3 g/dL (32.0-36.0); Mean Corpuscular Volume 89.9 fL (78.0-98.0); Mean Platelet Volume 6.4 fL (7.4-10.4); Monocytes 6 % (0-10); Neutrophil 86 % (42-75); Platelet Count 348 thou/uL (130-400); RBC Distribution Width 14.9 % (11.5-14.5); Red Blood Cell (RBC) Count 2.59 mill/uL (4.70-6.10)
[2018-09-23] MEDS: Insulin Regular 300 UNITS/3 ML VIAL SC PRN ×2 (06:22→17:20)
[2018-09-23] MEDS: metroNIDAZOLE 500 MG TAB PO SCH ×3 (09:08→21:18)
[2018-09-23] MEDS: Fluconazole 100 MG TAB PO SCH (09:08)
[2018-09-23] MEDS: Insulin Glargine 10 UNITS in Pre-Filled Syringe 1 EACH SC SCH (09:09)
[2018-09-23] MEDS: Pantoprazole 40 MG VIAL IVP SCH ×2 (09:09→21:18)
[2018-09-23] MEDS: Triple Antibiotic Oint 1 GM Packet TOP SCH (09:54)
[2018-09-23] MEDS ORDERED: Heparin 1,000 UNITS/ML VIAL ONE (11:11)
[2018-09-23] MEDS: Micafungin 100 MG in Sodium Chloride 0.9% 100 ML IVPB SCH (14:09)
[2018-09-23] MEDS: NIFEdipine XL 30 MG TAB PO SCH (14:10)
[2018-09-23] MEDS: Carvedilol 6.25 MG TAB PO SCH ×2 (14:10→21:18)
[2018-09-23] MEDS: EPOETIN ALFA-EPBX (ESRD) 3,000 UNIT/ML VIAL SC SCH (17:19)
[2018-09-24 05:21] LABS: Anion Gap 8 mmol/L (10-20); BUN (Urea Nitrogen) 19 mg/dL (8.4-25.7); Calc. Creatinine Clearance 35 mL/min (70-130); Carbon Dioxide 30 mmol/L (22-29); Chloride 100 mmol/L (98-107); Estimated GFR-MDRD 24; Glucose 95 mg/dL (70-105); Potassium 3.7 mmol/L (3.5-5.1); Sodium 134 mmol/L (136-145)
[2018-09-24 05:59] LABS: Band 3 % (5-11); Eosinophils 2 % (0-10); Hemoglobin 7.3 g/dL (14.0-18.0); Lymphocytes 8 % (21-51); MDiff Complete? YES; Mean Corpuscular HGB CONC 32.4 g/dL (32.0-36.0); Mean Corpuscular Hemoglobin 29.5 pg (27.0-31.0); Mean Corpuscular Volume 90.8 fL (78.0-98.0); Mean Platelet Volume 6.2 fL (7.4-10.4); Monocytes 13 % (0-10); Neutrophil 74 % (42-75); Platelet Count 344 thou/uL (130-400); Platelet Morphology Comment Appears Adequate; RBC Distribution Width 15.1 % (11.5-14.5); RBC Morphology Normal; Red Blood Cell (RBC) Count 2.48 mill/uL (4.70-6.10); White Blood Cell (WBC) Count 7.2 thou/uL (4.8-10.8)
[2018-09-24] MEDS: Triple Antibiotic Oint 1 GM Packet TOP SCH (07:42)
[2018-09-24] MEDS: Fluconazole 100 MG TAB PO SCH (08:48)
[2018-09-24] MEDS: NIFEdipine XL 30 MG TAB PO SCH (08:48)
[2018-09-24] MEDS: metroNIDAZOLE 500 MG TAB PO SCH ×3 (08:48→21:35)
[2018-09-24] MEDS: Carvedilol 6.25 MG TAB PO SCH ×2 (08:48→21:35)
[2018-09-24] MEDS: Insulin Glargine 10 UNITS in Pre-Filled Syringe 1 EACH SC SCH (08:49)
[2018-09-24] MEDS: Pantoprazole 40 MG VIAL IVP SCH ×2 (08:49→21:35)
[2018-09-24] MEDS: HYDROcodone/Acetaminophen 5/325 mg Tablet PO PRN ×3 (08:55→21:38)
[2018-09-24] MEDS: Micafungin 100 MG in Sodium Chloride 0.9% 100 ML IVPB SCH (11:50)
[2018-09-24] MEDS: Insulin Regular 300 UNITS/3 ML VIAL SC PRN (16:48)
--- NOTE | 2018-09-24 19:02 | PRG ---
DATE OF SERVICE: 09/24/2018 SUBJECTIVE: The patient is seen and examined, seems to be doing much better, noted with the following vital signs. OBJECTIVE: VITAL SIGNS: Afebrile, temperature 98, pulse 73, respiratory rate of 17, O2 saturation is 94% with blood pressure 135/66. HEENT: Unremarkable. Moist oral mucosa. NECK: Supple. No conjunctival injection or icterus. CARDIOVASCULAR SYSTEM: Positive first and second sounds were heard. RESPIRATORY SYSTEM: Clear to auscultation. DIGESTIVE: Revealed a benign abdomen. Positive bowel sounds. EXTREMITIES: No peripheral edema. SKIN/EXAMINATION: No new gross rash. LYMPHATICS: No peripheral lymphadenopathy. IMPRESSION: 1. End-stage renal disease, on hemodialysis. 2. Anemia of chronic kidney disease, critical illness and some component of iatrogenic from frequent blood draws. 3. Diabetes mellitus, poorly controlled. 4. Sepsis, on treatment. PLAN: 1. Continue with current Tuesday, , Tuesday schedule of dialysis. 2. Discontinue daily blood draws and limit blood draws on as needed basis and coordinate with dialysis staff to draw the blood during dialysis. 3. Continue erythropoiesis stimulating agents. 4. Further management will be dependent on the clinical course. Job ID: [id number]
[2018-09-25] MEDS: Insulin Regular 300 UNITS/3 ML VIAL SC PRN ×2 (06:12→11:15)
[2018-09-25] MEDS: Fluconazole 100 MG TAB PO SCH (08:57)
[2018-09-25] MEDS: Pantoprazole 40 MG VIAL IVP SCH ×2 (08:57→20:35)
[2018-09-25] MEDS: Carvedilol 6.25 MG TAB PO SCH ×2 (08:58→20:35)
[2018-09-25] MEDS: metroNIDAZOLE 500 MG TAB PO SCH ×3 (09:00→20:35)
[2018-09-25] MEDS: NIFEdipine XL 30 MG TAB PO SCH ×2 (09:07→11:16)
[2018-09-25] MEDS: Insulin Glargine 30 UNITS in Pre-Filled Syringe 1 EACH SC SCH (09:07)
[2018-09-25] MEDS: Triple Antibiotic Oint 1 GM Packet TOP SCH (09:07)
[2018-09-25] MEDS: HYDROcodone/Acetaminophen 5/325 mg Tablet PO PRN ×3 (09:10→18:39)
[2018-09-25] MEDS: Micafungin 100 MG in Sodium Chloride 0.9% 100 ML IVPB SCH (10:58)
--- NOTE | 2018-09-25 12:47 | PRG ---
DATE OF SERVICE: 09/25/2018 Ryan Parry is doing well today. His dressing from his right AKA have been changed. The wound is reported to look good. He has antibiotic ointment, Telfa, and a stump nutrition director in place. The patient is ready for discharge from a surgical standpoint. I will see him as needed in this hospitalization. He should be discharged to rehab hopefully. He should follow up with Dr. Quick or myself in 2 to 3 weeks. Consideration for long-term dialysis access has been presented to Dr. Lynch. Last BNP was 531, where his BUN was 15, creatinine 2.68, and his GFR 25. His urine output is not recorded. If he needs long-term dialysis access, could plan on establishing that. He has had a marking ultrasound on 09/06/2018 only small cephalic vein on the left and right with basilic vein, small on the left and larger on the right. We will await Dr. Lynch's assessment regarding his long-term dialysis needs. Job ID: [id number]
--- NOTE | 2018-09-25 20:32 | PRG ---
DATE OF SERVICE: 09/25/2018 SUBJECTIVE: The patient is seen and examined, doing well. Noted with the following vital signs. OBJECTIVE: VITAL SIGNS: Afebrile, temperature 98.2, pulse 68, respiratory rate of 18, O2 saturations are 98%, and blood pressure 114/58. HEENT: Unremarkable. CARDIOVASCULAR SYSTEM: First and second heart sounds were heard. RESPIRATORY SYSTEM: Clear to auscultation. DIGESTIVE SYSTEM: Revealed a benign abdomen with positive bowel sounds. EXTREMITIES: No peripheral edema. SKIN: No new gross rash. LYMPHATICS: No peripheral lymphadenopathy. IMPRESSION: 1. End-stage renal disease, hemodialysis dependent. 2. Anemia of chronic kidney disease. PLAN: 1. The patient would benefit from having a long-term access placed prior to be discharged. 2. Continue current regimen for dialysis. Job ID: [id number]
[2018-09-25] MEDS: Mirtazapine 30 MG TAB PO SCH (20:35)
[2018-09-26] MEDS: HYDROcodone/Acetaminophen 5/325 mg Tablet PO PRN ×2 (06:09→09:48)
[2018-09-26] MEDS: Pantoprazole 40 MG VIAL IVP SCH ×2 (07:25→20:38)
[2018-09-26] MEDS: Fluconazole 100 MG TAB PO SCH (07:26)
[2018-09-26] MEDS: metroNIDAZOLE 500 MG TAB PO SCH ×3 (07:26→20:38)
[2018-09-26] MEDS: Benzonatate 100 MG CAP PO PRN (07:26)
[2018-09-26] MEDS: Triple Antibiotic Oint 1 GM Packet TOP SCH (07:29)
[2018-09-26] MEDS: Insulin Glargine 30 UNITS in Pre-Filled Syringe 1 EACH SC SCH (08:13)
[2018-09-26] MEDS ORDERED: Fentanyl 100 MCG/2 ML VIAL SLOW IVP PRN (08:17)
[2018-09-26] MEDS ORDERED: Insulin Glargine 25 UNITS in Pre-Filled Syringe 1 EACH SC SCH (09:00)
[2018-09-26] MEDS: Micafungin 100 MG in Sodium Chloride 0.9% 100 ML IVPB SCH (13:03)
[2018-09-26] MEDS: Carvedilol 6.25 MG TAB PO SCH ×2 (13:03→20:28)
[2018-09-26] MEDS: NIFEdipine XL 30 MG TAB PO SCH (13:03)
--- NOTE | 2018-09-26 14:01 | RAD ---
XR Chest 1 View Portable History: [Cough and congestion] Comparison: Radiograph September 14, 2018 Findings: This catheter is in place. Left IJ central venous catheter tip is at the mid SVC. Lungs are hypoinflated. Mild pulmonary edema. Small effusions. No pneumothorax. Heart size is enlarge d. Hill-Sachs deformity right humeral head. Impression: Cardiomegaly with mild pulmonary edema and small effusions.
[2018-09-26] MEDS ORDERED: Heparin 10,000 UNITS/ 10 ML VIAL ONE (15:00)
[2018-09-26] MEDS: EPOETIN ALFA-EPBX (ESRD) 3,000 UNIT/ML VIAL SC SCH (16:26)
[2018-09-26] MEDS: Mirtazapine 30 MG TAB PO SCH (20:38)
--- NOTE | 2018-09-26 21:02 | PRG ---
DATE OF SERVICE: 09/26/2018 SUBJECTIVE: The patient is seen and examined, at dialysis seems to be doing okay and noted with the following vital signs. OBJECTIVE: VITAL SIGNS: Afebrile, temperature 97.6, pulse 60, respiratory rate of 16, blood pressure 102/64, and O2 saturations are 93%. GENERAL: Did complain of cough and shortness of breath. In the ER today noted with chest x-ray consistent with pulmonary congestion and mild pleural effusion. HEENT: Unremarkable. CARDIOVASCULAR SYSTEM: First and second heart sounds were heard. RESPIRATORY SYSTEM: Clear to auscultation anteriorly. DIGESTIVE SYSTEM: Revealed a benign abdomen. EXTREMITIES: No peripheral edema. SKIN: No new gross rash. LYMPHATICS: No peripheral lymphadenopathy. IMPRESSION: 1. End-stage renal disease, on hemodialysis Tuesday, , and Tuesday schedule. 2. Pulmonary congestion resulting in cough. 3. Anemia of chronic disease. 4. Poorly controlled diabetes, on treatment. PLAN: 1. During dialysis today, we will increase the ultrafiltration in order to help with the pulmonary congestion. 2. We will like this patient to secure a longtime axis in the aware of fistula graft. We will defer to the access surgeon so that. 3. Further management to be dependent on the clinical course. Job ID: [id number]
[2018-09-27] MEDS: HYDROcodone/Acetaminophen 5/325 mg Tablet PO PRN ×3 (06:53→14:41)
[2018-09-27] MEDS: NIFEdipine XL 30 MG TAB PO SCH (09:01)
[2018-09-27] MEDS: metroNIDAZOLE 500 MG TAB PO SCH ×3 (09:01→20:08)
[2018-09-27] MEDS: Fluconazole 100 MG TAB PO SCH (09:01)
[2018-09-27] MEDS: Carvedilol 6.25 MG TAB PO SCH (09:02)
[2018-09-27] MEDS: Triple Antibiotic Oint 1 GM Packet TOP SCH (09:02)
[2018-09-27] MEDS: Micafungin 100 MG in Sodium Chloride 0.9% 100 ML IVPB SCH (09:05)
[2018-09-27] MEDS: Pantoprazole 40 MG VIAL IVP SCH ×2 (09:13→20:09)
[2018-09-27] MEDS: Insulin Glargine 20 UNITS in Pre-Filled Syringe 1 EACH SC SCH (11:18)
[2018-09-27] MEDS: Mirtazapine 30 MG TAB PO SCH (20:09)
[2018-09-27] MEDS ORDERED: guaiFENesin ER 600 MG TAB PO SCH (23:59)
[2018-09-28] MEDS: Carvedilol 6.25 MG TAB PO SCH ×3 (00:11→20:10)
[2018-09-28] MEDS: HYDROcodone/Acetaminophen 5/325 mg Tablet PO PRN ×2 (01:45→15:49)
[2018-09-28] MEDS: Benzonatate 100 MG CAP PO PRN (05:41)
[2018-09-28] MEDS: Pantoprazole 40 MG VIAL IVP SCH ×2 (08:32→20:10)
[2018-09-28] MEDS: Triple Antibiotic Oint 1 GM Packet TOP SCH (08:33)
[2018-09-28] MEDS: NIFEdipine XL 30 MG TAB PO SCH (08:33)
[2018-09-28] MEDS: metroNIDAZOLE 500 MG TAB PO SCH ×3 (08:35→20:09)
[2018-09-28] MEDS: guaiFENesin ER 600 MG TAB PO SCH ×2 (08:36→20:09)
[2018-09-28] MEDS: Fluconazole 100 MG TAB PO SCH (08:36)
[2018-09-28] MEDS: Micafungin 100 MG in Sodium Chloride 0.9% 100 ML IVPB SCH (08:37)
[2018-09-28] MEDS: Insulin Glargine 20 UNITS in Pre-Filled Syringe 1 EACH SC SCH (09:51)
[2018-09-28] MEDS ORDERED: Heparin 10,000 UNITS/ 10 ML VIAL ONE (15:00)
[2018-09-28] MEDS: EPOETIN ALFA-EPBX (ESRD) 3,000 UNIT/ML VIAL SC SCH (17:30)
[2018-09-28] MEDS: Mirtazapine 30 MG TAB PO SCH (20:09)
[2018-09-29] MEDS: Insulin Glargine 20 UNITS in Pre-Filled Syringe 1 EACH SC SCH (08:44)
[2018-09-29] MEDS: metroNIDAZOLE 500 MG TAB PO SCH ×3 (08:45→20:37)
[2018-09-29] MEDS: Pantoprazole 40 MG VIAL IVP SCH ×2 (08:45→20:59)
[2018-09-29] MEDS: Carvedilol 6.25 MG TAB PO SCH ×2 (08:45→20:59)
[2018-09-29] MEDS: NIFEdipine XL 30 MG TAB PO SCH (08:45)
[2018-09-29] MEDS: guaiFENesin ER 600 MG TAB PO SCH ×2 (08:45→20:58)
[2018-09-29] MEDS: Triple Antibiotic Oint 1 GM Packet TOP SCH (08:46)
[2018-09-29] MEDS: Micafungin 100 MG in Sodium Chloride 0.9% 100 ML IVPB SCH (09:57)
[2018-09-29] MEDS: Mirtazapine 30 MG TAB PO SCH (20:59)
[2018-09-30] MEDS: HYDROcodone/Acetaminophen 5/325 mg Tablet PO PRN ×3 (03:32→22:18)
[2018-09-30 06:43] LABS: #Basophils 0.1 thou/uL (0.0-0.2); #Eosinphils 0.3 thou/uL (0.0-0.7); #Lymphocytes 1.1 thou/uL (1.20-3.40); #Monocytes 0.8 thou/uL (0.11-0.59); #Neutrophils 7.4 thou/uL (1.40-6.50); %Basophils 0.9 % (0.0-1.0); %Eosinophils 3.4 % (0.0-10.0); %Lymphocytes 11.5 % (21.0-51.0); %Neutrophils 76.2 % (42.0-75.0); Hemoglobin 7.5 g/dL (14.0-18.0); Mean Corpuscular HGB CONC 32.1 g/dL (32.0-36.0); Mean Corpuscular Hemoglobin 28.4 pg (27.0-31.0); Mean Corpuscular Volume 88.5 fL (78.0-98.0); Mean Platelet Volume 5.9 fL (7.4-10.4); Platelet Count 487 thou/uL (130-400); RBC Distribution Width 14.7 % (11.5-14.5); Red Blood Cell (RBC) Count 2.62 mill/uL (4.70-6.10); White Blood Cell (WBC) Count 9.6 thou/uL (4.8-10.8)
[2018-09-30 07:05] LABS: ALT (SGPT) 7 U/L (8-55); AST (SGOT) 15 U/L (5-34); Alkaline Phosphatase 461 U/L (40-150); Anion Gap 10 mmol/L (10-20); BUN (Urea Nitrogen) 29 mg/dL (8.4-25.7); Bilirubin, Total 1.6 mg/dL (0.2-1.2); Calc. Creatinine Clearance 31 mL/min (70-130); Calcium 8.7 mg/dL (7.8-10.44); Carbon Dioxide 28 mmol/L (22-29); Chloride 98 mmol/L (98-107); Estimated GFR-MDRD 20; Globulin 3.5 g/dL (2.4-3.5); Potassium 3.9 mmol/L (3.5-5.1); Protein, Total 5.5 g/dL (6.0-8.3); Sodium 132 mmol/L (136-145)
[2018-09-30 07:12] LABS: Glucose 57 mg/dL (70-105)
[2018-09-30] MEDS: Insulin Glargine 20 UNITS in Pre-Filled Syringe 1 EACH SC SCH (08:18)
[2018-09-30] MEDS: NIFEdipine XL 30 MG TAB PO SCH (08:18)
[2018-09-30] MEDS: Carvedilol 6.25 MG TAB PO SCH ×2 (08:18→20:28)
[2018-09-30] MEDS: Triple Antibiotic Oint 1 GM Packet TOP SCH (08:26)
[2018-09-30] MEDS: Docusate 100 MG CAP PO SCH ×2 (08:27→20:27)
[2018-09-30] MEDS: guaiFENesin ER 600 MG TAB PO SCH ×2 (08:27→20:27)
[2018-09-30] MEDS ORDERED: Heparin 10,000 UNITS/ 10 ML VIAL ONE (10:00)
[2018-09-30] MEDS: Micafungin 100 MG in Sodium Chloride 0.9% 100 ML IVPB SCH (11:59)
[2018-09-30] MEDS: Insulin Regular 300 UNITS/3 ML VIAL SC PRN (12:00)
[2018-09-30] MEDS: traZODone HCl 50 MG TAB PO SCH (20:27)
[2018-09-30] MEDS: Mirtazapine 30 MG TAB PO SCH (20:28)
[2018-09-30] MEDS: EPOETIN ALFA-EPBX (ESRD) 3,000 UNIT/ML VIAL SC SCH (20:28)
[2018-09-30] MEDS: Benzonatate 100 MG CAP PO PRN (20:35)
[2018-10-01] MEDS: Carvedilol 6.25 MG TAB PO SCH ×2 (08:53→21:07)
[2018-10-01] MEDS: Docusate 100 MG CAP PO SCH ×2 (08:53→21:07)
[2018-10-01] MEDS: guaiFENesin ER 600 MG TAB PO SCH ×2 (08:53→21:08)
[2018-10-01] MEDS: NIFEdipine XL 30 MG TAB PO SCH (08:53)
[2018-10-01] MEDS: Triple Antibiotic Oint 1 GM Packet TOP SCH (08:54)
[2018-10-01] MEDS: Insulin Glargine 20 UNITS in Pre-Filled Syringe 1 EACH SC SCH (08:54)
[2018-10-01] MEDS: Micafungin 100 MG in Sodium Chloride 0.9% 100 ML IVPB SCH (10:40)
[2018-10-01] MEDS: HYDROcodone/Acetaminophen 5/325 mg Tablet PO PRN (11:10)
[2018-10-01] MEDS: Insulin Regular 300 UNITS/3 ML VIAL SC PRN (12:55)
--- NOTE | 2018-10-01 16:00 | PRG ---
DATE OF SERVICE: 10/01/2018 SUBJECTIVE: Ryan Parry is doing well today. They are working on placement. His right AKA wound looks good. He has a stump machine room operator in place. It was washed today and antibiotic ointment applied to stump machine room operator and reported the wound looks good. I did not take down his dressings. I was called about a cholecystostomy tube that was placed on 09/12/2018. The drainage from the tube is bilious and approximately 100 mL over the last 24 hours. Abdomen is soft and nontender. ASSESSMENT AND PLAN: The patient is doing well. The cholecystostomy tube was removed today at bedside. Gauze dressing will be applied. We will check liver function tests tomorrow. No other intervention necessary unless he has symptoms. The patient will need to follow up with Dr. Yoon in week and half to 2 weeks for staple removal. Job ID: [id number]
--- NOTE | 2018-10-01 16:21 | PRG ---
DATE OF SERVICE: 10/01/2018 SUBJECTIVE: The patient is seen and examined, noted with the following vital signs. OBJECTIVE: VITAL SIGNS: Afebrile, temperature 97.5, pulse 67, respiratory rate of 20, O2 saturation 95%, blood pressure 157/65. HEENT: Unremarkable. Moist oral mucosa. NECK: Supple. No conjunctival injection or icterus. CARDIOVASCULAR SYSTEM: First and second heart sounds were heard. RESPIRATORY SYSTEM: Clear to auscultation. DIGESTIVE SYSTEM: Revealed a benign abdomen. Positive bowel sounds. EXTREMITIES: No peripheral edema. SKIN: No new gross rash. LYMPHATICS: No peripheral lymphadenopathy. IMPRESSION: 1. End-stage renal disease, on hemodialysis. 2. Anemia of chronic kidney disease and critical illness. 3. Necrotizing fasciitis, status post rcurz-cos-kxeu amputation. PLAN: 1. The patient will benefit from a long-term dialysis access. We will defer to the access surgeon for placement of a fistula or a graft. 2. Outpatient dialysis placement workup in progress. manager foreign on the case. 3. We will continue erythropoiesis-stimulating agent. Job ID: [id number]
[2018-10-01] MEDS: Benzonatate 100 MG CAP PO PRN (16:26)
[2018-10-01] MEDS: traZODone HCl 50 MG TAB PO SCH (21:07)
[2018-10-01] MEDS: Mirtazapine 30 MG TAB PO SCH (21:08)
[2018-10-02] MEDS: HYDROcodone/Acetaminophen 5/325 mg Tablet PO PRN ×2 (01:20→15:18)
[2018-10-02 04:49] LABS: ALT (SGPT) 8 U/L (8-55); AST (SGOT) 14 U/L (5-34); Alkaline Phosphatase 399 U/L (40-150); Bilirubin, Direct 0.9 mg/dL (0.1-0.3); Bilirubin, Total 1.3 mg/dL (0.2-1.2); Protein, Total 5.1 g/dL (6.0-8.3)
[2018-10-02] MEDS: Triple Antibiotic Oint 1 GM Packet TOP SCH (08:50)
[2018-10-02] MEDS: Docusate 100 MG CAP PO SCH ×2 (08:51→20:42)
[2018-10-02] MEDS: NIFEdipine XL 30 MG TAB PO SCH (08:51)
[2018-10-02] MEDS: Insulin Glargine 20 UNITS in Pre-Filled Syringe 1 EACH SC SCH (08:51)
[2018-10-02] MEDS: Carvedilol 6.25 MG TAB PO SCH ×2 (08:51→20:43)
[2018-10-02] MEDS: guaiFENesin ER 600 MG TAB PO SCH ×2 (08:51→20:43)
[2018-10-02] MEDS: Micafungin 100 MG in Sodium Chloride 0.9% 100 ML IVPB SCH (10:30)
[2018-10-02] MEDS: Insulin Regular 300 UNITS/3 ML VIAL SC PRN (12:54)
[2018-10-02 16:48] LABS: Hemoglobin 6.7 g/dL (14.0-18.0); Mean Corpuscular HGB CONC 33.6 g/dL (32.0-36.0); Mean Corpuscular Hemoglobin 29.5 pg (27.0-31.0); Mean Corpuscular Volume 87.9 fL (78.0-98.0); Mean Platelet Volume 5.9 fL (7.4-10.4); Platelet Count 475 thou/uL (130-400); RBC Distribution Width 14.9 % (11.5-14.5); Red Blood Cell (RBC) Count 2.28 mill/uL (4.70-6.10); White Blood Cell (WBC) Count 9.8 thou/uL (4.8-10.8)
[2018-10-02] MEDS: Mirtazapine 30 MG TAB PO SCH (20:42)
[2018-10-02] MEDS: traZODone HCl 50 MG TAB PO SCH (20:44)
[2018-10-02] MEDS ORDERED: EPOETIN ALFA-EPBX (ESRD) 3,000 UNIT/ML VIAL SC SCH (23:24)
[2018-10-03] MEDS: Benzonatate 100 MG CAP PO PRN ×2 (00:25→16:34)
--- NOTE | 2018-10-03 00:37 | PRG ---
DATE OF SERVICE: SUBJECTIVE: Patient is seen and examined, seems to be very sleepy and lethargic. OBJECTIVE: VITAL SIGNS: Noted with the following vital signs. Afebrile, temperature 98.4; pulse 69; respiratory rate of 18; O2 saturation of 94%; and blood pressure 132/67. HEENT: Unremarkable. CARDIOVASCULAR: Positive sounds were heard. RESPIRATORY: Clear to auscultation. DIGESTIVE: Revealed a benign abdomen. EXTREMITIES: No peripheral edema. SKIN: No new gross rash. LYMPHATICS: No peripheral lymphadenopathy. LABORATORY INVESTIGATION: Significant for hemoglobin of 6.7. IMPRESSION: 1. End-stage renal disease, on dialysis. 2. Severe anemia. 3. Lethargy with drowsiness, likely in the context of medication in a patient with renal failure in this case the addition of trazodone to the patient's narcotics and Zoloft. PLAN: 1. We will transfuse this patient with 2 units of blood during dialysis tomorrow. 2. Increase the dose of Epogen. 3. Discontinue trazodone to avoid worsening mental status in this patient. 4. Further management will be dependent on the clinical course, including the outpatient dialysis placement is managed on the case. Job ID: [id number]
[2018-10-03 05:50] LABS: #Basophils 0.1 thou/uL (0.0-0.2); #Eosinphils 0.2 thou/uL (0.0-0.7); #Lymphocytes 1.1 thou/uL (1.20-3.40); #Monocytes 0.7 thou/uL (0.11-0.59); #Neutrophils 9.5 thou/uL (1.40-6.50); %Basophils 0.6 % (0.0-1.0); %Lymphocytes 9.1 % (21.0-51.0); %Monocytes 5.7 % (0.0-10.0); %Neutrophils 82.5 % (42.0-75.0); Mean Corpuscular HGB CONC 32.7 g/dL (32.0-36.0); Mean Corpuscular Volume 88.6 fL (78.0-98.0); Mean Platelet Volume 5.7 fL (7.4-10.4); Platelet Count 490 thou/uL (130-400); Red Blood Cell (RBC) Count 2.41 mill/uL (4.70-6.10); White Blood Cell (WBC) Count 11.5 thou/uL (4.8-10.8)
[2018-10-03 06:14] LABS: ALT (SGPT) Less than 7 U/L (8-55); AST (SGOT) 11 U/L (5-34); Alkaline Phosphatase 376 U/L (40-150); Anion Gap 10 mmol/L (10-20); BUN (Urea Nitrogen) 35 mg/dL (8.4-25.7); Bilirubin, Total 1.1 mg/dL (0.2-1.2); Calc. Creatinine Clearance 28 mL/min (70-130); Calcium 8.2 mg/dL (7.8-10.44); Carbon Dioxide 28 mmol/L (22-29); Chloride 95 mmol/L (98-107); Estimated GFR-MDRD 19; Globulin 3.2 g/dL (2.4-3.5); Glucose 114 mg/dL (70-105); Potassium 4.4 mmol/L (3.5-5.1); Protein, Total 5.2 g/dL (6.0-8.3); Sodium 129 mmol/L (136-145)
[2018-10-03] MEDS ORDERED: Heparin 10,000 UNITS/ 10 ML VIAL ONE (09:00)
--- NOTE | 2018-10-03 12:50 | PDOC.GSPN ---
Surgery Progress Note: Subj - Subjective Narrative: Patient is feeling pretty good. He denies shortness of breath or chest pain. He does have a little bit of sore throat and has been coughing a bit. Tolerating dialysis well. His left arm is fairly swollen. He states that this has been happening off and on. It is worse today than usual. Assessment/plan: Doing much better from the standpoint of sepsis. His cholecystostomy tube has been removed and his right above-knee amputation has been closed. He is off all antibiotics although he is still on an antifungal. He tolerated his last general surgery well and did not have any hypotensive episodes or cardiac arrest. His stress test was normal. Chronic renal failure has progressed to end-stage renal failure on dialysis. His powerhouse mechanic apprentice does not feel that his kidney function will recover and feels he will require permanent access. He is right hand dominant, had planned on placing a left AV fistula, but his left arm is significantly swollen which raises concerns about venous outflow. We will proceed with a right-sided fistula versus graft tomorrow. Inherent risks of surgery were discussed with the patient. These include but are not limited to bleeding, infection, risks of anesthesia, damage nearby structures, failure of the fistula to mature, need for other procedures to obtain or maintain fistula patency, and arterial steal which can cause permanent ischemic damage to the hand. He understands and accepts these risks and wishes to proceed. All his questions were answered. Surgery Progress Note: Obj - Vital signs Vital signs: Vital Signs - Most Recent Temp Pulse Resp BP Pulse Ox 97.9 F 63 20 163/74 H 95 10/03/18 07:52 10/03/18 07:52 10/03/18 07:52 10/03/18 07:52 10/03/18 08:00 Surgery Progress Note: Results - Labs Result Diagrams: 10/03/18 05:30 10/03/18 05:30 Lab results: Laboratory Results - last 24 hr 10/03/18 10/03/18 10/03/18 04:33 05:30 05:30 WBC 11.5 H RBC 2.41 L Hgb 7.0 L Hct 21.4 L MCV 88.6 MCH 29.0 MCHC 32.7 RDW 15.0 H Plt Count 490 H MPV 5.7 L Neutrophils % 82.5 H Lymphocytes % 9.1 L Monocytes % 5.7 Eosinophils % 2.0 Basophils % 0.6 Neutrophils # 9.5 H Lymphocytes # 1.1 L Monocytes # 0.7 H Eosinophils # 0.2 Basophils # 0.1 Sodium 129 L Potassium 4.4 Chloride 95 L Carbon Dioxide 28 Anion Gap 10 BUN 35 H Creatinine 3.43 H Estimated GFR (MDRD) 19 Glucose 114 H POC Glucose 183 H Calcium 8.2 Total Bilirubin 1.1 AST 11 ALT Less than 7 L Alkaline Phosphatase 376 H Serum Total Protein 5.2 L Albumin 2.0 L Globulin 3.2 Albumin/Globulin Ratio 0.6 L
[2018-10-03] MEDS ORDERED: CEFAZOLIN 2 GM in Premix Bag 1 BAG IVPB SCH (13:00)
[2018-10-03] MEDS: EPOETIN ALFA-EPBX (ESRD) 4,000 UNIT/ML VIAL SC SCH (13:21)
[2018-10-03] MEDS: guaiFENesin ER 600 MG TAB PO SCH ×2 (15:34→20:25)
[2018-10-03] MEDS: Carvedilol 6.25 MG TAB PO SCH ×2 (15:34→20:26)
[2018-10-03] MEDS: Docusate 100 MG CAP PO SCH ×2 (15:34→20:26)
[2018-10-03] MEDS: NIFEdipine XL 30 MG TAB PO SCH (15:34)
[2018-10-03] MEDS: Micafungin 100 MG in Sodium Chloride 0.9% 100 ML IVPB SCH (15:36)
[2018-10-03] MEDS: HYDROcodone/Acetaminophen 5/325 mg Tablet PO PRN (16:37)
[2018-10-03] MEDS: Insulin Glargine 20 UNITS in Pre-Filled Syringe 1 EACH SC SCH (16:39)
[2018-10-03] MEDS: Triple Antibiotic Oint 1 GM Packet TOP SCH (16:39)
[2018-10-03] MEDS: Mirtazapine 30 MG TAB PO SCH (20:26)
--- NOTE | 2018-10-03 20:37 | PRG ---
DATE OF SERVICE: 10/03/2018 SUBJECTIVE: The patient is seen and examined, complaining of cough, noted with the following vital signs. OBJECTIVE: VITAL SIGNS: Afebrile, temperature 97.8, pulse 66, respiratory rate of 14, O2 saturations are 94% with blood pressure 128/58. HEENT: Unremarkable. CARDIOVASCULAR: First and second heart sounds were heard. RESPIRATORY: Some rales. DIGESTIVE: Revealed a benign abdomen. EXTREMITIES: Some peripheral edema, especially in the left upper extremity. IMPRESSION: 1. Respiratory distress, likely in the context of pulmonary congestion. 2. End-stage renal disease. 3. Severe anemia. PLAN: 1. The patient to be dialyzed today and ultrafiltrated to 3-4 L. 2. Transfuse 2 units of blood during dialysis. 3. Continue erythropoiesis stimulating agent with an increased dose today. 4. Further management will be dependent on the clinical course. Job ID: [id number]
[2018-10-04] MEDS: Carvedilol 6.25 MG TAB PO SCH ×2 (06:07→20:01)
[2018-10-04] MEDS ORDERED: Dextrose 50% Abboject 50 ML SYRINGE ONE (09:55)
[2018-10-04] MEDS: Triple Antibiotic Oint 1 GM Packet TOP SCH (10:08)
[2018-10-04] MEDS: Docusate 100 MG CAP PO SCH ×2 (10:08→20:01)
[2018-10-04] MEDS: NIFEdipine XL 30 MG TAB PO SCH (10:08)
[2018-10-04] MEDS: guaiFENesin ER 600 MG TAB PO SCH ×2 (10:08→20:01)
[2018-10-04] MEDS: Insulin Glargine 20 UNITS in Pre-Filled Syringe 1 EACH SC SCH (10:08)
[2018-10-04] MEDS ORDERED: Ketamine 50 MG/ML (10ML VIAL) ONE (10:28)
[2018-10-04] MEDS ORDERED: Heparin 5,000 UNITS/ML VIAL ONE (10:36)
[2018-10-04] MEDS ORDERED: Bupivacaine HCl 0.5%/Epinephrine 1:200,000/PF 30 ml Vial ONE ×2 (10:36→13:40)
[2018-10-04] MEDS ORDERED: Protamine Sulfate 50 MG/5 ML VIAL ONE (10:36)
[2018-10-04] MEDS ORDERED: Lidocaine 2% PF 5 ML VIAL ONE ×2 (10:37→10:43)
[2018-10-04] MEDS ORDERED: Ioversol 68 % 50 ML VIAL ONE (10:37)
[2018-10-04] MEDS ORDERED: Bupivacaine/Epinephrine 0.25% 30 ML VIAL ONE (12:52)
[2018-10-04] MEDS ORDERED: Heparin 10,000 UNITS/ 10 ML VIAL ONE (13:46)
[2018-10-04] MEDS: Micafungin 100 MG in Sodium Chloride 0.9% 100 ML IVPB SCH (16:03)
[2018-10-04] MEDS: Benzonatate 100 MG CAP PO PRN ×2 (16:08→22:28)
[2018-10-04] MEDS: Mirtazapine 30 MG TAB PO SCH (20:02)
[2018-10-04] MEDS: HYDROcodone/Acetaminophen 5/325 mg Tablet PO PRN (22:26)
[2018-10-05] MEDS: Docusate 100 MG CAP PO SCH ×2 (08:10→20:24)
[2018-10-05] MEDS: Carvedilol 6.25 MG TAB PO SCH ×2 (08:10→20:24)
[2018-10-05] MEDS: Insulin Glargine 20 UNITS in Pre-Filled Syringe 1 EACH SC SCH (08:11)
[2018-10-05] MEDS: Triple Antibiotic Oint 1 GM Packet TOP SCH (08:11)
[2018-10-05] MEDS: guaiFENesin ER 600 MG TAB PO SCH ×2 (08:11→20:25)
[2018-10-05] MEDS: NIFEdipine XL 30 MG TAB PO SCH (08:11)
[2018-10-05] MEDS: Benzonatate 100 MG CAP PO PRN (13:15)
[2018-10-05] MEDS: Micafungin 100 MG in Sodium Chloride 0.9% 100 ML IVPB SCH (13:19)
[2018-10-05] MEDS ORDERED: Heparin 10,000 UNITS/ 10 ML VIAL ONE (15:00)
[2018-10-05] MEDS: Acetaminophen 325 MG TAB PO PRN (16:22)
[2018-10-05] MEDS: EPOETIN ALFA-EPBX (ESRD) 4,000 UNIT/ML VIAL SC SCH (16:23)
--- NOTE | 2018-10-05 16:49 | PDOC.GSPN ---
Surgery Progress Note: Subj - Subjective Narrative: Patient feels fine. The strength and sensation in his right arm have returned almost to normal. Some pain at the incision but none in his fingers. The fistula has an excellent thrill. Minimal swelling in the arm and hand. From a surgical standpoint he is ready for discharge to rehabilitation. He should follow-up in my clinic in 2-3 weeks post discharge. Surgery Progress Note: Obj - Vital signs Vital signs: Vital Signs - Most Recent Temp Pulse Resp BP Pulse Ox 98.4 F 69 18 175/75 H 95 10/05/18 16:00 10/05/18 16:00 10/05/18 16:00 10/05/18 16:36 10/05/18 16:00 Surgery Progress Note: Results - Labs Result Diagrams: 10/03/18 05:30 10/03/18 05:30 Lab results: Laboratory Results - last 24 hr 10/05/18 10/05/18 04:40 13:38 POC Glucose 80 107
[2018-10-05] MEDS ORDERED: Zolpidem Tartrate 5 MG TAB PO PRN (18:53)
--- NOTE | 2018-10-05 20:06 | PRG ---
DATE OF SERVICE: 10/05/2018 SUBJECTIVE: The patient is seen and examined. OBJECTIVE: VITAL SIGNS: Noted with the following vital signs; afebrile, temperature 99.7, pulse 83, respiratory rate of 16, O2 saturations are 94% with blood pressure 181/82. HEENT: Unremarkable. CARDIOVASCULAR: First and second heart sounds were heard. RESPIRATORY: Clear to auscultation. DIGESTIVE: Revealed a benign abdomen. Positive bowel sounds. EXTREMITIES: No peripheral edema. SKIN: No new gross rash. LYMPHATICS: No peripheral lymphadenopathy. IMPRESSION: 1. End-stage renal disease, on hemodialysis. 2. Hypertension. 3. Anemia of multifactorial etiology. PLAN: 1. The patient to be dialyzed with increased ultrafiltration. The target will be to remove about 5 L on this patient given the recent respiratory distress. 2. We will continue erythropoiesis-stimulating agent. 3. Further management to be dependent on the clinical course. Job ID: [id number]
[2018-10-05] MEDS: Mirtazapine 30 MG TAB PO SCH (20:25)
[2018-10-05] MEDS: Fluticasone Propionate Nasal Spray 16 gm Bottle NASAL SCH (20:25)
[2018-10-06] MEDS: Benzonatate 100 MG CAP PO PRN ×3 (00:51→14:11)
[2018-10-06] MEDS: Carvedilol 6.25 MG TAB PO SCH ×2 (08:05→20:31)
[2018-10-06] MEDS: guaiFENesin ER 600 MG TAB PO SCH ×2 (08:05→20:32)
[2018-10-06] MEDS: NIFEdipine XL 30 MG TAB PO SCH (08:05)
[2018-10-06] MEDS: Docusate 100 MG CAP PO SCH ×2 (08:06→20:32)
[2018-10-06] MEDS: Triple Antibiotic Oint 1 GM Packet TOP SCH (08:06)
[2018-10-06] MEDS: Insulin Glargine 20 UNITS in Pre-Filled Syringe 1 EACH SC SCH (08:06)
[2018-10-06] MEDS: Fluticasone Propionate Nasal Spray 16 gm Bottle NASAL SCH ×2 (08:06→20:33)
[2018-10-06] MEDS: Micafungin 100 MG in Sodium Chloride 0.9% 100 ML IVPB SCH (11:45)
[2018-10-06] MEDS: Insulin Regular 300 UNITS/3 ML VIAL SC PRN (12:37)
[2018-10-06] MEDS ORDERED: Heparin 10,000 UNITS/ 10 ML VIAL ONE (14:47)
--- NOTE | 2018-10-06 20:15 | PRG ---
DATE OF SERVICE: 10/06/2018 SUBJECTIVE: The patient is seen and examined. Noted with the following vital signs. OBJECTIVE: VITAL SIGNS: Afebrile, temperature 98.3, pulse 68, respiratory rate of 18, and O2 saturation 96% with blood pressure 156/68. HEENT: Unremarkable. Moist oral mucosa. NECK: Supple. No conjunctival injection or icterus. CARDIOVASCULAR SYSTEM: First and second sounds were heard. RESPIRATORY SYSTEM: Clear to auscultation. DIGESTIVE SYSTEM: Revealed a benign abdomen with positive bowel sounds. EXTREMITIES: No peripheral edema. SKIN: No new gross rash. LYMPHATICS: No peripheral lymphadenopathy. IMPRESSION: 1. End-stage renal disease, on hemodialysis. 2. Anemia, status post transfusion, and we will continue on erythropoiesis-stimulating agent. 3. Diabetes mellitus, type 2. PLAN: 1. The patient to continue with current regimen of hemodialysis with ultrafiltration as tolerated by hemodynamics. 2. Outpatient placement in progress. 3. Further management to be dependent on the clinical course. Job ID: [id number]
[2018-10-06] MEDS: Mirtazapine 30 MG TAB PO SCH (20:33)
[2018-10-06] MEDS: Zolpidem Tartrate 5 MG TAB PO SCH (20:33)
[2018-10-07] MEDS: Insulin Glargine 20 UNITS in Pre-Filled Syringe 1 EACH SC SCH (08:15)
[2018-10-07] MEDS: Docusate 100 MG CAP PO SCH ×2 (08:15→19:53)
[2018-10-07] MEDS: Triple Antibiotic Oint 1 GM Packet TOP SCH (08:15)
[2018-10-07] MEDS: Fluticasone Propionate Nasal Spray 16 gm Bottle NASAL SCH ×2 (08:15→19:54)
[2018-10-07] MEDS: guaiFENesin ER 600 MG TAB PO SCH ×2 (08:16→19:53)
[2018-10-07] MEDS: EPOETIN ALFA-EPBX (ESRD) 4,000 UNIT/ML VIAL SC SCH (08:16)
[2018-10-07 10:32] LABS: Hemoglobin 8.7 g/dL (14.0-18.0); Mean Corpuscular HGB CONC 32.6 g/dL (32.0-36.0); Mean Corpuscular Hemoglobin 29.3 pg (27.0-31.0); Mean Corpuscular Volume 89.9 fL (78.0-98.0); Mean Platelet Volume 5.5 fL (7.4-10.4); Platelet Count 435 thou/uL (130-400); RBC Distribution Width 14.8 % (11.5-14.5); Red Blood Cell (RBC) Count 2.96 mill/uL (4.70-6.10); White Blood Cell (WBC) Count 12.8 thou/uL (4.8-10.8)
[2018-10-07 10:37] LABS: Hep B Core Total Ab Non-Reactive (NonReactive); Hep B Core Total Index 0.06 S/CO (0-0.79)
[2018-10-07 10:38] LABS: HBSAg Index 0.33 S/CO (0-0.99); Hep B Surf Ag Non-Reactive S/CO (NonReactive)
[2018-10-07 10:39] LABS: HBCM Index 0.05 S/CO (0-0.79); Hepatitis B Core IgM Abs Non-Reactive (NonReactive)
[2018-10-07 11:09] LABS: Basophilic Stippling SLIGHT = 1-2 cells (100X) (None Seen); Eosinophils 8 % (0-10); Hypochromia SLIGHT = 6-15 cells (100X) (0-5/hpf); Lymphocytes 11 % (21-51); MDiff Complete? YES; Microcytosis SLIGHT = 6-15 cells (100X) (0-5/hpf); Monocytes 4 % (0-10); Neutrophil 76 % (42-75); Platelet Morphology Comment Appears Increased; Polychromasia SLIGHT = 2-3 cells (100X) (0-2/hpf)
[2018-10-07] MEDS ORDERED: Heparin 1,000 UNITS/ML VIAL ONE (11:11)
[2018-10-07 11:19] LABS: HBSAB Concentration 89.34 mIU/mL; Hep B Surf AB Reactive (NonReactive)
[2018-10-07] MEDS: Micafungin 100 MG in Sodium Chloride 0.9% 100 ML IVPB SCH (14:05)
[2018-10-07] MEDS: Carvedilol 6.25 MG TAB PO SCH ×2 (14:07→19:53)
[2018-10-07] MEDS: NIFEdipine XL 30 MG TAB PO SCH (14:13)
[2018-10-07] MEDS ORDERED: Loratadine 10 MG TAB PO SCH (15:15)
[2018-10-07] MEDS: Mirtazapine 30 MG TAB PO SCH (19:52)
[2018-10-07] MEDS: Zolpidem Tartrate 5 MG TAB PO SCH (19:52)
[2018-10-08] MEDS: Insulin Regular 300 UNITS/3 ML VIAL SC PRN ×2 (06:20→13:07)
[2018-10-08] MEDS: Triple Antibiotic Oint 1 GM Packet TOP SCH (08:40)
[2018-10-08] MEDS: Carvedilol 6.25 MG TAB PO SCH ×2 (08:40→20:03)
[2018-10-08] MEDS: Insulin Glargine 20 UNITS in Pre-Filled Syringe 1 EACH SC SCH (08:40)
[2018-10-08] MEDS: NIFEdipine XL 30 MG TAB PO SCH (08:40)
[2018-10-08] MEDS: guaiFENesin ER 600 MG TAB PO SCH ×2 (08:40→20:03)
[2018-10-08] MEDS: Loratadine 10 MG TAB PO SCH (08:40)
[2018-10-08] MEDS: Micafungin 100 MG in Sodium Chloride 0.9% 100 ML IVPB SCH (08:40)
[2018-10-08] MEDS: Docusate 100 MG CAP PO SCH ×2 (08:40→20:04)
[2018-10-08] MEDS: Fluticasone Propionate Nasal Spray 16 gm Bottle NASAL SCH ×2 (08:41→20:04)
--- NOTE | 2018-10-08 18:04 | PRG ---
DATE OF SERVICE: 10/08/2018 SUBJECTIVE: The patient was seen and examined, did very well with dialysis yesterday, tolerated ultrafiltration very well, feeling much better, noted with the following vital signs. OBJECTIVE: VITAL SIGNS: Afebrile, temperature 98.2, pulse 74, respiratory rate of 18, O2 saturation of 98% with blood pressure of 170/74. HEENT: Unremarkable. CARDIOVASCULAR SYSTEM: First and second heart sounds were heard. RESPIRATORY SYSTEM: Clear to auscultation. DIGESTIVE SYSTEM: Revealed a benign abdomen with positive bowel sounds. EXTREMITIES: No peripheral edema. SKIN: No new gross rash. LYMPHATICS: No peripheral lymphadenopathy. IMPRESSION: 1. End-stage renal disease, on hemodialysis. 2. Diabetes mellitus, type 2. 3. Hypertension, suboptimally controlled. PLAN: 1. We will continue with current regimen of antihypertensive medications. 2. We will adjust antihypertensive medications to optimize hemodynamics. 3. Further management to be dependent on the clinical course. Meanwhile, the patient to continue with erythropoiesis-stimulating agent. Job ID: [id number]
--- NOTE | 2018-10-08 18:08 | PRG ---
DATE OF SERVICE: 10/07/2018 SUBJECTIVE: The patient is seen and examined. Noted with the following vital signs. OBJECTIVE: VITAL SIGNS: Afebrile. Temperature 98.7, pulse 70, blood pressure 171/88, respiratory rate of 20, O2 saturation of 95%. HEENT: Unremarkable. CARDIOVASCULAR SYSTEM: First and second heart sounds were heard. RESPIRATORY SYSTEM: Clear to auscultation with some rales. DIGESTIVE SYSTEM: Revealed a benign abdomen. EXTREMITIES: Showed some peripheral edema. NEUROLOGIC: Alert and oriented. No lateralizing sign. IMPRESSION: 1. End-stage renal disease, hemodialysis dependent. 2. Hypervolemia. 3. Diabetes mellitus type 2. PLAN: 1. The patient to be dialyzed and with ultrafiltration of target of above 5 L. 2. Working on outpatient rehab placement as well as outpatient dialysis placement. 3. Further management will be dependent on the clinical course. Job ID: [id number]
[2018-10-08] MEDS: Mirtazapine 30 MG TAB PO SCH (20:02)
[2018-10-08] MEDS: Zolpidem Tartrate 5 MG TAB PO SCH (20:03)
[2018-10-09] MEDS: guaiFENesin ER 600 MG TAB PO SCH ×2 (09:34→20:14)
[2018-10-09] MEDS: Docusate 100 MG CAP PO SCH ×2 (09:35→20:14)
[2018-10-09] MEDS: Carvedilol 6.25 MG TAB PO SCH ×2 (09:35→20:13)
[2018-10-09] MEDS: Loratadine 10 MG TAB PO SCH (09:35)
[2018-10-09] MEDS: hydrALAZINE 25 MG TAB PO SCH ×3 (09:35→20:15)
[2018-10-09] MEDS: Fluticasone Propionate Nasal Spray 16 gm Bottle NASAL SCH ×2 (09:36→20:14)
[2018-10-09] MEDS: Insulin Glargine 20 UNITS in Pre-Filled Syringe 1 EACH SC SCH (09:36)
[2018-10-09] MEDS: NIFEdipine XL 30 MG TAB PO SCH (09:47)
[2018-10-09] MEDS: Micafungin 100 MG in Sodium Chloride 0.9% 100 ML IVPB SCH (11:32)
[2018-10-09] MEDS: Insulin Regular 300 UNITS/3 ML VIAL SC PRN ×3 (11:58→20:25)
[2018-10-09] MEDS: Triple Antibiotic Oint 1 GM Packet TOP SCH (15:07)
[2018-10-09] MEDS: Mirtazapine 30 MG TAB PO SCH (20:15)
[2018-10-09] MEDS: Zolpidem Tartrate 5 MG TAB PO SCH (20:17)
--- NOTE | 2018-10-09 21:21 | PRG ---
DATE OF SERVICE: 10/09/2018 SUBJECTIVE: The patient is seen and examined with no new complaint. Noted with the following vital signs. OBJECTIVE: VITAL SIGNS: Afebrile, temperature 98.9, pulse 86, and blood pressure 115/68. HEENT: Unremarkable. Moist oral mucosa. NECK: Supple. No conjunctival injection or icterus. CARDIOVASCULAR SYSTEM: First and second heart sounds were heard. RESPIRATORY SYSTEM: Clear to auscultation. DIGESTIVE SYSTEM: Revealed a benign abdomen. Positive bowel sounds. EXTREMITIES: No peripheral edema. SKIN: No new gross rash. LYMPHATICS: No peripheral lymphadenopathy. IMPRESSION: 1. End-stage renal disease, hemodialysis dependent. 2. Diabetes mellitus, poorly controlled, improving. 3. Necrotizing fasciitis, status post above-knee amputation. 4. Anemia of chronic kidney disease, on erythropoiesis-stimulating agent. PLAN: 1. The patient will continue with current regimen of hemodialysis. 2. Outpatient dialysis placement in progress. 3. Further management to be dependent on the clinical course. Job ID: [id number]
[2018-10-09] MEDS: Acetaminophen 325 MG TAB PO PRN (23:28)
[2018-10-10] MEDS: Insulin Regular 300 UNITS/3 ML VIAL SC PRN ×3 (05:56→21:13)
--- NOTE | 2018-10-10 10:44 | PRG ---
DATE OF SERVICE: 10/10/2018 SUBJECTIVE: The patient is seen and examined, at dialysis seems to be doing much better. Noted with the following vital signs. OBJECTIVE: VITAL SIGNS: Afebrile, temperature 98.2, pulse 71, respiratory rate of 18, O2 saturation 90%, and blood pressure 174/79. HEENT: Unremarkable. Moist oral mucosa. NECK: Supple. No conjunctival injection or icterus. CARDIOVASCULAR SYSTEM: First and second heart sounds were heard. RESPIRATORY SYSTEM: Clear to auscultation. DIGESTIVE SYSTEM: Revealed a benign abdomen with positive bowel sounds. EXTREMITIES: No peripheral edema. SKIN: No new gross rash. LYMPHATICS: No peripheral lymphadenopathy. IMPRESSION: 1. End-stage renal disease, on hemodialysis. 2. Diabetes mellitus, type 2. 3. Necrotizing fasciitis, status post above-knee amputation. PLAN: 1. The patient will continue with current schedule of dialysis. 2. Awaiting placement, case management on the case. Job ID: [id number]
[2018-10-10] MEDS: guaiFENesin ER 600 MG TAB PO SCH ×2 (12:57→21:07)
[2018-10-10] MEDS: Carvedilol 6.25 MG TAB PO SCH ×2 (12:58→21:37)
[2018-10-10] MEDS: NIFEdipine XL 30 MG TAB PO SCH (12:58)
[2018-10-10] MEDS: hydrALAZINE 25 MG TAB PO SCH ×4 (12:58→21:07)
[2018-10-10] MEDS: Loratadine 10 MG TAB PO SCH (12:58)
[2018-10-10] MEDS: Fluticasone Propionate Nasal Spray 16 gm Bottle NASAL SCH ×2 (13:05→21:07)
[2018-10-10] MEDS: Triple Antibiotic Oint 1 GM Packet TOP SCH (13:05)
[2018-10-10] MEDS: Docusate 100 MG CAP PO SCH ×2 (13:05→21:05)
[2018-10-10] MEDS: EPOETIN ALFA-EPBX (ESRD) 4,000 UNIT/ML VIAL SC SCH (13:09)
[2018-10-10] MEDS: Insulin Glargine 20 UNITS in Pre-Filled Syringe 1 EACH SC SCH (13:12)
[2018-10-10] MEDS: Micafungin 100 MG in Sodium Chloride 0.9% 100 ML IVPB SCH (13:32)
[2018-10-10] MEDS ORDERED: Heparin 10,000 UNITS/1 ML VIAL ONE (15:00)
[2018-10-10] MEDS: Carvedilol 25 MG TAB PO SCH (21:05)
[2018-10-10] MEDS: Mirtazapine 30 MG TAB PO SCH (21:08)
[2018-10-10] MEDS: Zolpidem Tartrate 5 MG TAB PO SCH (21:09)
[2018-10-10] MEDS: Pseudoephedrine HCl 30 MG TAB PO SCH (21:52)
[2018-10-11] MEDS: Acetaminophen 325 MG TAB PO PRN (04:16)
[2018-10-11] MEDS: guaiFENesin ER 600 MG TAB PO SCH ×2 (08:22→20:26)
[2018-10-11] MEDS: Fluticasone Propionate Nasal Spray 16 gm Bottle NASAL SCH ×2 (08:22→20:29)
[2018-10-11] MEDS: hydrALAZINE 25 MG TAB PO SCH ×3 (08:23→20:26)
[2018-10-11] MEDS: NIFEdipine XL 30 MG TAB PO SCH (08:23)
[2018-10-11] MEDS: Loratadine 10 MG TAB PO SCH (08:23)
[2018-10-11] MEDS: Carvedilol 25 MG TAB PO SCH ×2 (08:24→20:26)
[2018-10-11] MEDS: Docusate 100 MG CAP PO SCH ×2 (08:24→20:26)
[2018-10-11] MEDS: Triple Antibiotic Oint 1 GM Packet TOP SCH (08:25)
[2018-10-11] MEDS: Insulin Glargine 25 UNITS in Pre-Filled Syringe 1 EACH SC SCH (09:14)
[2018-10-11] MEDS: Pseudoephedrine HCl 30 MG TAB PO SCH ×4 (09:14→20:28)
[2018-10-11] MEDS: Micafungin 100 MG in Sodium Chloride 0.9% 100 ML IVPB SCH (10:02)
[2018-10-11 16:10] LABS: Fungus Culture Final report (.)
[2018-10-11] MEDS: Mirtazapine 30 MG TAB PO SCH (20:27)
[2018-10-11] MEDS: Zolpidem Tartrate 5 MG TAB PO SCH (20:28)
[2018-10-12] MEDS ORDERED: guaiFENesin/DM ER ONE (08:03)
[2018-10-12] MEDS ORDERED: Loratadine 10 MG TAB ONE (08:03)
[2018-10-12] MEDS ORDERED: NIFEdipine XL 60 MG TAB ONE (08:03)
[2018-10-12] MEDS ORDERED: Docusate 100 MG CAP ONE (08:03)
[2018-10-12] MEDS ORDERED: hydrALAZINE 25 MG TAB ONE (08:03)
[2018-10-12] MEDS ORDERED: Carvedilol 25 MG TAB ONE (08:03)
[2018-10-12] MEDS ORDERED: Heparin 10,000 UNITS/ 10 ML VIAL ONE (09:00)
[2018-10-12] MEDS: hydrALAZINE 25 MG TAB PO SCH ×3 (10:22→20:31)
[2018-10-12] MEDS: Fluticasone Propionate Nasal Spray 16 gm Bottle NASAL SCH ×2 (10:22→20:31)
[2018-10-12] MEDS: EPOETIN ALFA-EPBX (ESRD) 4,000 UNIT/ML VIAL SC SCH (10:22)
[2018-10-12] MEDS: guaiFENesin ER 600 MG TAB PO SCH ×2 (10:22→20:31)
[2018-10-12] MEDS: Docusate 100 MG CAP PO SCH ×2 (10:22→20:31)
[2018-10-12] MEDS: Carvedilol 25 MG TAB PO SCH ×2 (10:22→20:31)
[2018-10-12] MEDS: NIFEdipine XL 30 MG TAB PO SCH (10:23)
[2018-10-12] MEDS: Insulin Glargine 25 UNITS in Pre-Filled Syringe 1 EACH SC SCH (10:23)
[2018-10-12] MEDS: Triple Antibiotic Oint 1 GM Packet TOP SCH (10:23)
[2018-10-12] MEDS: Loratadine 10 MG TAB PO SCH (10:23)
[2018-10-12] MEDS: Pseudoephedrine HCl 30 MG TAB PO SCH ×4 (10:24→21:27)
[2018-10-12] MEDS: Micafungin 100 MG in Sodium Chloride 0.9% 100 ML IVPB SCH (11:01)
[2018-10-12 14:56] LABS: #Eosinphils 0.2 thou/uL (0.0-0.7); #Monocytes 0.4 thou/uL (0.11-0.59); #Neutrophils 7.4 thou/uL (1.40-6.50); %Basophils 0.3 % (0.0-1.0); %Eosinophils 2.7 % (0.0-10.0); %Lymphocytes 11.2 % (21.0-51.0); %Monocytes 4.8 % (0.0-10.0); Hemoglobin 8.6 g/dL (14.0-18.0); Mean Corpuscular HGB CONC 32.6 g/dL (32.0-36.0); Mean Corpuscular Hemoglobin 28.9 pg (27.0-31.0); Mean Corpuscular Volume 88.5 fL (78.0-98.0); Mean Platelet Volume 5.9 fL (7.4-10.4); Platelet Count 465 thou/uL (130-400); RBC Distribution Width 14.5 % (11.5-14.5); Red Blood Cell (RBC) Count 2.99 mill/uL (4.70-6.10); White Blood Cell (WBC) Count 9.1 thou/uL (4.8-10.8)
[2018-10-12 15:18] LABS: Anion Gap 10 mmol/L (10-20); BUN (Urea Nitrogen) 11 mg/dL (8.4-25.7); Calc. Creatinine Clearance 90 mL/min (70-130); Calcium 8.4 mg/dL (7.8-10.44); Carbon Dioxide 35 mmol/L (22-29); Chloride 95 mmol/L (98-107); Estimated GFR-MDRD 71; Glucose 74 mg/dL (70-105); Sodium 137 mmol/L (136-145)
--- NOTE | 2018-10-12 18:37 | PRG ---
DATE OF SERVICE: 10/12/2018 SUBJECTIVE: The patient is seen and examined, seems to be doing much better, noted with the following vital signs. OBJECTIVE: VITAL SIGNS: Afebrile, temperature 97.7, pulse 71, respiratory rate of 17, O2 saturations are 98%, and blood pressure 180/78. HEENT: Unremarkable. CARDIOVASCULAR SYSTEM: First and second heart sounds were heard. RESPIRATORY SYSTEM: Clear to auscultation. DIGESTIVE SYSTEM: Revealed a benign abdomen. Positive bowel sounds. EXTREMITIES: No peripheral edema. SKIN: No new gross rash. LYMPHATICS: No peripheral lymphadenopathy. LABORATORY INVESTIGATIONS: because this was drawn right after dialysis. IMPRESSION: 1. Acute kidney injury, which seems to have made some improvement, but will need to be re-evaluated possibility of coming off dialysis. 2. Anemia, status post blood transfusion on erythropoiesis-stimulating agent. 3. Sepsis, that resulted in above-knee amputation. PLAN: 1. The patient likely to be discharged today. 2. Outpatient renal function re-evaluation strongly recommended given the possibility of renal recovery in this patient to the point of not requiring hemodialysis anymore. At which point, if this is noted to be the case, we will recommend discontinuation of the dialysis with command removal of the dialysis catheter. 3. Further management will be dependent on the clinical course. Job ID: [id number]
[2018-10-12] MEDS: Mirtazapine 30 MG TAB PO SCH (20:32)
[2018-10-12] MEDS: Zolpidem Tartrate 5 MG TAB PO SCH (20:34)
[2018-10-13] MEDS: Triple Antibiotic Oint 1 GM Packet TOP SCH (07:52)
[2018-10-13] MEDS: Insulin Glargine 25 UNITS in Pre-Filled Syringe 1 EACH SC SCH (07:52)
[2018-10-13] MEDS: NIFEdipine XL 30 MG TAB PO SCH (07:52)
[2018-10-13] MEDS: Carvedilol 25 MG TAB PO SCH ×2 (07:53→20:10)
[2018-10-13] MEDS: hydrALAZINE 25 MG TAB PO SCH ×4 (07:53→20:11)
[2018-10-13] MEDS: Loratadine 10 MG TAB PO SCH (07:54)
[2018-10-13] MEDS: guaiFENesin ER 600 MG TAB PO SCH ×2 (07:54→20:10)
[2018-10-13] MEDS: Docusate 100 MG CAP PO SCH ×2 (07:54→20:10)
[2018-10-13] MEDS: Fluticasone Propionate Nasal Spray 16 gm Bottle NASAL SCH ×2 (07:55→20:10)
[2018-10-13] MEDS: Potassium Chloride 20 MEQ TAB PO SCH ×2 (08:40→20:16)
[2018-10-13] MEDS: Pseudoephedrine HCl 30 MG TAB PO SCH ×4 (08:41→20:51)
--- NOTE | 2018-10-13 09:23 | ULT ---
ULTRASOUND RETROPERITONEUM COMPLETE: (RENAL) 10/13/2018 HISTORY: a 58-year-old male with hematuria and acute renal failure. Repeat renal ultrasound. COMPARISON: 09/05/2018 FINDINGS: The urinary bladder is more distended on the current study, with a volume of 800 mL. The bladder wal l no longer appears thickened. The right kidney measures 11.5 x 6 x 5 cm. The left kidney measures 12 x 5.5 x 6 cm. No hydronephrosis bilaterally. Visualization of renal parenchymal detail is poor, worse than on the prior study, mostly due to body habitus, and from overlying shadowing. No large renal cystic or solid mass is identified. Renal parenchymal echogenicity on the right appears heterogeneous and slightly increased, suggestive of medical renal disease. The left renal parenchymal echogenicity is difficult to visualize because of poor visualization. IMPRESSION: 1. Very distended urinary bladder, 800 mL volume. 2. No hydronephrosis. 3. Probable medical renal disease. TERESITA Stone POS: TPC
[2018-10-13 11:14] LABS: Anion Gap 9 mmol/L (10-20); BUN (Urea Nitrogen) 20 mg/dL (8.4-25.7); Calc. Creatinine Clearance 50 mL/min (70-130); Calcium 8.6 mg/dL (7.8-10.44); Carbon Dioxide 34 mmol/L (22-29); Chloride 95 mmol/L (98-107); Estimated GFR-MDRD 36; Glucose 88 mg/dL (70-105); Potassium 3.5 mmol/L (3.5-5.1); Sodium 134 mmol/L (136-145)
[2018-10-13 17:12] LABS: HBSAg Index 0.25 S/CO (0-0.99); Hep B Core Total Ab Non-Reactive (NonReactive); Hep B Core Total Index 0.07 S/CO (0-0.79); Hep B Surf Ag Non-Reactive S/CO (NonReactive)
[2018-10-13 17:18] LABS: HBSAB Concentration 55.88 mIU/mL; Hep B Surf AB Reactive (NonReactive)
[2018-10-13] MEDS: Mirtazapine 30 MG TAB PO SCH (20:11)
--- NOTE | 2018-10-13 20:11 | PRG ---
DATE OF SERVICE: 10/13/2018 SUBJECTIVE: The patient is seen and examined, seems to be doing much better, noted with the following vital signs. OBJECTIVE: VITAL SIGNS: Afebrile, temperature 98.1, pulse 75, respiratory rate of 20, and O2 saturation 98% with blood pressure 168/71. HEENT: Unremarkable. Moist oral mucosa. NECK: Supple. No conjunctival injection or icterus. CARDIOVASCULAR SYSTEM: First and second sounds were heard. RESPIRATORY SYSTEM: Clear to auscultation. DIGESTIVE SYSTEM: Revealed a benign abdomen with positive bowel sounds. EXTREMITIES: No peripheral edema. SKIN: No new gross rash. LYMPHATICS: No peripheral lymphadenopathy. LABORATORY INVESTIGATION: Showed a hemoglobin of . Chemistry showed a creatinine of 1.93; however, a repeat showed 2.23. IMPRESSION: 1. Acute on chronic kidney disease dependent on dialysis. 2. Anemia. 3. Sepsis status post above-knee amputation. PLAN: 1. The disposition plan of this patient that revolves around outpatient dialysis placement seems to be positive, quite a little bit of a challenge. In any case, given the possibility of renal recovery in this patient, I will go ahead and re-evaluate this patient's renal function with 24-hour urine and if the creatinine clearance comes back adequate for patient not to be dependent on hemodialysis at this point, I will go ahead and discontinue dialysis and have the patient continue with outpatient physical therapy with close outpatient Nephrology followup status post discharge. 2. Further management will be dependent on the clinical course. 3. We will have Dietz catheter placed in IR to have an acute 24-hour urine collection for accurate creatinine clearance evaluation. Job ID: [id number]
[2018-10-13] MEDS: Zolpidem Tartrate 5 MG TAB PO SCH (20:16)
[2018-10-14 05:03] LABS: Anion Gap 12 mmol/L (10-20); BUN (Urea Nitrogen) 26 mg/dL (8.4-25.7); Calc. Creatinine Clearance 42 mL/min (70-130); Calcium 8.5 mg/dL (7.8-10.44); Carbon Dioxide 30 mmol/L (22-29); Chloride 92 mmol/L (98-107); Estimated GFR-MDRD 30; Glucose 77 mg/dL (70-105); Sodium 130 mmol/L (136-145)
[2018-10-14] MEDS: Fluticasone Propionate Nasal Spray 16 gm Bottle NASAL SCH ×2 (07:49→21:11)
[2018-10-14] MEDS: Insulin Glargine 25 UNITS in Pre-Filled Syringe 1 EACH SC SCH (07:49)
[2018-10-14] MEDS: hydrALAZINE 25 MG TAB PO SCH ×3 (07:50→21:13)
[2018-10-14] MEDS: guaiFENesin ER 600 MG TAB PO SCH ×2 (07:50→21:12)
[2018-10-14] MEDS: Loratadine 10 MG TAB PO SCH (07:51)
[2018-10-14] MEDS: Docusate 100 MG CAP PO SCH ×2 (07:51→21:11)
[2018-10-14] MEDS: Potassium Chloride 20 MEQ TAB PO SCH (07:51)
[2018-10-14] MEDS: Carvedilol 25 MG TAB PO SCH ×2 (07:51→21:11)
[2018-10-14] MEDS: NIFEdipine XL 30 MG TAB PO SCH (07:51)
[2018-10-14] MEDS: Triple Antibiotic Oint 1 GM Packet TOP SCH (07:54)
--- NOTE | 2018-10-14 08:50 | RAD ---
EXAM: XR Chest 1 View Portable PROVIDED CLINICAL HISTORY: Cough COMPARISON: 09/26/2018 FINDINGS: Evaluation is limited by patient body habitus and portable technique as well as lung hypoinflation. C ardiac silhouette remains enlarged. Prominence of the pulmonary interstitium persists. No lobar consolidation, pleural fluid or pneumothorax evident. Right IJ dialysis catheter and left IJ central line are redemonstrated in similar positions. IMPRESSION: Stable radiographic appearance of the chest.
[2018-10-14] MEDS: Pseudoephedrine HCl 30 MG TAB PO SCH ×4 (09:37→21:12)
[2018-10-14] MEDS: EPOETIN ALFA-EPBX (ESRD) 4,000 UNIT/ML VIAL SC SCH (09:38)
[2018-10-14 17:47] LABS: Body Surface Area 2.01
[2018-10-14 18:12] LABS: Creatinine, Urine 23.75 mg/dL (63-166)
--- NOTE | 2018-10-14 20:55 | PRG ---
DATE OF SERVICE: 10/14/2018 SUBJECTIVE: The patient is seen and examined today with no new complaint noted with the following vital signs. OBJECTIVE: VITAL SIGNS: Afebrile, temperature 98.2, pulse 73, respiratory rate of 16, O2 saturation 97%, blood pressure 173/82. HEENT: Unremarkable. Moist oral mucosa. NECK: Supple. No conjunctival injection or icterus. CARDIOVASCULAR: First and second heart sounds were heard. RESPIRATORY SYSTEM: Clear to auscultation. DIGESTIVE SYSTEM: Benign abdomen with positive bowel sounds. EXTREMITIES: Some peripheral edema. LABORATORY INVESTIGATION: Sodium of 130, bicarb of 30, BUN of 26 with a creatinine of 2.29. A 24-hour urine collection is in progress. IMPRESSION: 1. Hlawj-ob-lqenqoq kidney disease, on hemodialysis, seems to be showing some signs of improvement. 2. Anemia of critical illness and anemia of kidney disease. 3. Sepsis, status post above-knee amputation. 4. Poorly controlled diabetes. PLAN: 1. The patient's 24-hour urine collection is in progress. This 24-hour urine collection will enable us to evaluate this patient's kidney function with the possibility of coming off dialysis if adequate creatinine clearance is noted by urine studies. 2. Hemodialysis was placed on hold today while 24-hour urine collection is in progress. 3. It is proving that this patient can thrive without dialysis, decision will be taken to discontinue the dialysis catheter. 4. Further management will be dependent on the clinical course. Job ID: [id number]
[2018-10-14] MEDS: Mirtazapine 30 MG TAB PO SCH (21:11)
[2018-10-14] MEDS: Zolpidem Tartrate 5 MG TAB PO SCH (21:17)
[2018-10-15] MEDS: Fluticasone Propionate Nasal Spray 16 gm Bottle NASAL SCH ×2 (07:49→21:59)
[2018-10-15] MEDS: hydrALAZINE 25 MG TAB PO SCH ×3 (07:50→21:47)
[2018-10-15] MEDS: Loratadine 10 MG TAB PO SCH (07:51)
[2018-10-15] MEDS: Docusate 100 MG CAP PO SCH ×2 (07:51→21:49)
[2018-10-15] MEDS: NIFEdipine XL 30 MG TAB PO SCH (07:51)
[2018-10-15] MEDS: Carvedilol 25 MG TAB PO SCH ×2 (07:52→21:49)
[2018-10-15] MEDS: guaiFENesin ER 600 MG TAB PO SCH ×2 (07:52→21:48)
[2018-10-15] MEDS: Insulin Glargine 25 UNITS in Pre-Filled Syringe 1 EACH SC SCH (07:52)
[2018-10-15] MEDS: Triple Antibiotic Oint 1 GM Packet TOP SCH (07:54)
[2018-10-15] MEDS: Pseudoephedrine HCl 30 MG TAB PO SCH ×4 (09:09→21:51)
[2018-10-15] MEDS ORDERED: cloNIDine 0.1 MG TAB PO PRN (09:57)
[2018-10-15] MEDS ORDERED: cloNIDine 0.1 MG TAB PO SCH (10:00)
[2018-10-15] MEDS: Mirtazapine 30 MG TAB PO SCH (21:47)
[2018-10-15] MEDS: cloNIDine 0.1 MG TAB PO SCH (21:47)
--- NOTE | 2018-10-15 22:55 | PRG ---
DATE OF SERVICE: 10/15/2018 SUBJECTIVE: The patient is seen and examined with no new complaint. OBJECTIVE: VITAL SIGNS: Noted with the following vital signs. Afebrile, temperature 97.8, pulse 70, respiratory rate of 17, O2 saturations 98% with blood pressure 143/70. HEENT: Examination unremarkable. CARDIOVASCULAR: First and second heart sounds were heard. RESPIRATORY: Clear to auscultation. DIGESTIVE: Revealed a benign abdomen. EXTREMITIES: Showed some peripheral edema. SKIN: No new gross rash. LYMPHATICS: No peripheral lymphadenopathy. LABORATORY INVESTIGATION: Significant for urine creatinine clearance of 8. IMPRESSION: 1. End-stage renal disease with a creatinine clearance of 8. 2. Anemia of chronic kidney disease. 3. Sepsis status post above-knee amputation. PLAN: 1. Given the creatinine clearance that came back at 8, the patient to resume dialysis. Therefore, having skipped dialysis on Tuesday, we now place this patient on a Tuesday, Tuesday, and Tuesday schedule. The patient to resume dialysis tomorrow. 2. manager orange to coordinate outpatient dialysis placement as part of the patient's disposition planning. 3. Further management to be dependent on the clinical course. Job ID: [id number]
[2018-10-15] MEDS: Zolpidem Tartrate 5 MG TAB PO SCH (23:44)
[2018-10-16] MEDS ORDERED: Heparin 10,000 UNITS/ 10 ML VIAL ONE (10:00)
[2018-10-16] MEDS: Insulin Glargine 20 UNITS in Pre-Filled Syringe 1 EACH SC SCH (14:12)
[2018-10-16] MEDS: Pseudoephedrine HCl 30 MG TAB PO SCH ×4 (14:12→20:48)
[2018-10-16] MEDS: guaiFENesin ER 600 MG TAB PO SCH ×2 (14:19→20:47)
[2018-10-16] MEDS: NIFEdipine XL 30 MG TAB PO SCH (14:19)
[2018-10-16] MEDS: Loratadine 10 MG TAB PO SCH (14:19)
[2018-10-16] MEDS: hydrALAZINE 25 MG TAB PO SCH ×3 (14:20→20:46)
[2018-10-16] MEDS: Potassium Chloride 10 MEQ TAB PO SCH (14:20)
[2018-10-16] MEDS: Carvedilol 25 MG TAB PO SCH ×2 (14:20→20:46)
[2018-10-16] MEDS: cloNIDine 0.1 MG TAB PO SCH ×2 (14:20→20:46)
[2018-10-16] MEDS: Docusate 100 MG CAP PO SCH ×2 (14:20→20:47)
[2018-10-16] MEDS: Fluticasone Propionate Nasal Spray 16 gm Bottle NASAL SCH ×2 (14:22→20:47)
[2018-10-16] MEDS: Triple Antibiotic Oint 1 GM Packet TOP SCH (14:23)
--- NOTE | 2018-10-16 18:37 | PRG ---
DATE OF SERVICE: 10/16/2018 SUBJECTIVE: The patient is seen and examined with no new complaint noted with the following vital signs. OBJECTIVE: VITAL SIGNS: Afebrile, temperature 97.8, pulse 80, blood pressure 147/68, respiratory rate of 16, O2 saturations 96%. HEENT: Unremarkable. Moist oral mucosa. NECK: Supple. No conjunctival injection or icterus. CARDIOVASCULAR SYSTEM: First and second heart sounds were heard. RESPIRATORY SYSTEM: Clear to auscultation. DIGESTIVE SYSTEM: Revealed a benign abdomen with positive bowel sounds. EXTREMITIES: Show some peripheral edema. SKIN: No new gross rash. LYMPHATICS: No peripheral lymphadenopathy. IMPRESSION: 1. End-stage renal disease. Resume dialysis today with ultrafiltration of about 5 L plus. 2. Anemia of chronic kidney disease. To continue erythropoiesis stimulating agent. 3. Outpatient dialysis placement . 4. Further management to be dependent on the clinical course. Job ID: [id number]
[2018-10-16] MEDS: Mirtazapine 30 MG TAB PO SCH (20:48)
[2018-10-16] MEDS: Zolpidem Tartrate 5 MG TAB PO SCH (20:49)
[2018-10-17] MEDS: hydrALAZINE 25 MG TAB PO SCH ×3 (10:23→21:41)
[2018-10-17] MEDS: Pseudoephedrine HCl 30 MG TAB PO SCH ×4 (10:24→21:40)
[2018-10-17] MEDS: guaiFENesin ER 600 MG TAB PO SCH ×2 (10:24→21:41)
[2018-10-17] MEDS: Carvedilol 25 MG TAB PO SCH ×2 (10:24→21:42)
[2018-10-17] MEDS: Docusate 100 MG CAP PO SCH ×2 (10:24→21:44)
[2018-10-17] MEDS: Loratadine 10 MG TAB PO SCH (10:25)
[2018-10-17] MEDS: NIFEdipine XL 30 MG TAB PO SCH (10:25)
[2018-10-17] MEDS: Fluticasone Propionate Nasal Spray 16 gm Bottle NASAL SCH ×2 (10:26→21:45)
[2018-10-17] MEDS: cloNIDine 0.2 MG TAB PO SCH ×2 (10:34→21:42)
[2018-10-17] MEDS: Triple Antibiotic Oint 1 GM Packet TOP SCH (10:35)
[2018-10-17] MEDS: Insulin Glargine 20 UNITS in Pre-Filled Syringe 1 EACH SC SCH (10:41)
--- NOTE | 2018-10-17 20:55 | PRG ---
DATE OF SERVICE: 10/17/2018 SUBJECTIVE: The patient is seen and examined with no new complaints. Noted with the following vital signs. OBJECTIVE: VITAL SIGNS: Afebrile, temperature 98.1, pulse 78, respiratory rate of 20, O2 saturations are 95% with blood pressure 130/68. HEENT: Unremarkable. CARDIOVASCULAR SYSTEM: First and second heart sounds were heard. RESPIRATORY SYSTEM: Clear to auscultation. DIGESTIVE SYSTEM: Revealed a benign abdomen with positive bowel sounds. EXTREMITIES: No peripheral edema. SKIN: No new gross rash. LYMPHATICS: No peripheral lymphadenopathy. IMPRESSION: 1. End-stage renal disease, on hemodialysis. 2. Anemia of chronic kidney disease. 3. Sepsis, status post above-knee amputation. PLAN: 1. The patient to continue with current regimen on Tuesday, Tuesday, and Tuesday schedule dialysis. 2. Disposition planning, the primary team is being coordinated by the case management. 3. Further management to be dependent on the clinical course. Job ID: [id number]
[2018-10-17] MEDS: Mirtazapine 30 MG TAB PO SCH (21:42)
[2018-10-17] MEDS: Zolpidem Tartrate 5 MG TAB PO SCH (21:42)
[2018-10-18] MEDS: Insulin Glargine 20 UNITS in Pre-Filled Syringe 1 EACH SC SCH (09:00)
[2018-10-18] MEDS: Pseudoephedrine HCl 30 MG TAB PO SCH ×4 (09:00→22:25)
[2018-10-18] MEDS: hydrALAZINE 25 MG TAB PO SCH ×3 (09:00→22:26)
[2018-10-18] MEDS ORDERED: Heparin 1,000 UNITS/ML VIAL ONE (11:11)
[2018-10-18] MEDS: NIFEdipine XL 30 MG TAB PO SCH (13:26)
[2018-10-18] MEDS: Docusate 100 MG CAP PO SCH ×2 (13:27→22:27)
[2018-10-18] MEDS: cloNIDine 0.2 MG TAB PO SCH ×2 (13:28→22:25)
[2018-10-18] MEDS: Potassium Chloride 10 MEQ TAB PO SCH (13:28)
[2018-10-18] MEDS: Carvedilol 25 MG TAB PO SCH ×2 (13:28→22:27)
[2018-10-18] MEDS: Fluticasone Propionate Nasal Spray 16 gm Bottle NASAL SCH ×2 (13:30→22:30)
[2018-10-18] MEDS: EPOETIN ALFA-EPBX (ESRD) 4,000 UNIT/ML VIAL SC SCH (16:59)
[2018-10-18] MEDS: Loratadine 10 MG TAB PO SCH (17:01)
[2018-10-18] MEDS: Triple Antibiotic Oint 1 GM Packet TOP SCH (17:41)
--- NOTE | 2018-10-18 20:06 | PRG ---
DATE OF SERVICE: 10/18/2018 SUBJECTIVE: The patient is noted with the following vital signs. OBJECTIVE: VITAL SIGNS: Afebrile, temperature 98.6, pulse 81, respiratory rate of 16, O2 saturation of 96%, blood pressure 176/80. HEENT: Unremarkable. CARDIOVASCULAR SYSTEM: First and second heart sounds were heard. RESPIRATORY SYSTEM: Clear to auscultation. DIGESTIVE SYSTEM: Revealed a benign abdomen with positive bowel sounds. EXTREMITIES: No peripheral edema. SKIN: No new gross rash. LYMPHATICS: No peripheral lymphadenopathy. IMPRESSION: 1. End-stage renal disease, on hemodialysis. 2. Anemia of chronic kidney disease. 3. Sepsis, status post above-knee amputation. PLAN: 1. The patient's disposition plan seems to be becoming very difficult and quite challenging. 2. I did discuss with this patient the possibility of peritoneal dialysis modality of treatment. The patient is thinking about it. I will try and see if I can get the peritoneal dialysis team to discuss with this patient and give him some proper education. If the patient is agreeable to this modality of treatment, we will schedule a peritoneal dialysis catheter placement and walk on getting this patient over to inpatient rehab for continued peritoneal dialysis treatment and rehabilitation. 3. We did discuss this with the case management assistant and the patient will get back to me on this by tomorrow. Job ID: [id number]
[2018-10-18] MEDS: Zolpidem Tartrate 5 MG TAB PO SCH (22:26)
[2018-10-18] MEDS: Mirtazapine 30 MG TAB PO SCH (22:27)
[2018-10-19 06:00] LABS: #Eosinphils 0.2 thou/uL (0.0-0.7); #Lymphocytes 0.9 thou/uL (1.20-3.40); #Monocytes 0.6 thou/uL (0.11-0.59); #Neutrophils 4.3 thou/uL (1.40-6.50); %Basophils 0.7 % (0.0-1.0); %Eosinophils 4.1 % (0.0-10.0); %Lymphocytes 14.9 % (21.0-51.0); %Monocytes 9.5 % (0.0-10.0); %Neutrophils 70.8 % (42.0-75.0); Hemoglobin 7.7 g/dL (14.0-18.0); Mean Corpuscular HGB CONC 32.6 g/dL (32.0-36.0); Mean Corpuscular Volume 88.9 fL (78.0-98.0); Mean Platelet Volume 5.7 fL (7.4-10.4); Platelet Count 335 thou/uL (130-400); RBC Distribution Width 14.1 % (11.5-14.5); Red Blood Cell (RBC) Count 2.66 mill/uL (4.70-6.10)
[2018-10-19 06:23] LABS: Anion Gap 11 mmol/L (10-20); BUN (Urea Nitrogen) 15 mg/dL (8.4-25.7); Calc. Creatinine Clearance 43 mL/min (70-130); Calcium 8.4 mg/dL (7.8-10.44); Carbon Dioxide 29 mmol/L (22-29); Chloride 99 mmol/L (98-107); Estimated GFR-MDRD 31; Glucose 132 mg/dL (70-105); Potassium 3.8 mmol/L (3.5-5.1); Sodium 135 mmol/L (136-145)
[2018-10-19] MEDS: Carvedilol 25 MG TAB PO SCH ×2 (08:52→20:46)
[2018-10-19] MEDS: Pseudoephedrine HCl 30 MG TAB PO SCH ×4 (08:52→20:42)
[2018-10-19] MEDS: cloNIDine 0.2 MG TAB PO SCH ×2 (08:52→20:42)
[2018-10-19] MEDS: hydrALAZINE 25 MG TAB PO SCH ×3 (08:52→20:45)
[2018-10-19] MEDS: Loratadine 10 MG TAB PO SCH (08:53)
[2018-10-19] MEDS: NIFEdipine XL 30 MG TAB PO SCH (08:53)
[2018-10-19] MEDS: Triple Antibiotic Oint 1 GM Packet TOP SCH (08:53)
[2018-10-19] MEDS: Insulin Glargine 20 UNITS in Pre-Filled Syringe 1 EACH SC SCH (08:53)
[2018-10-19] MEDS: Docusate 100 MG CAP PO SCH ×2 (08:53→20:44)
[2018-10-19] MEDS: Fluticasone Propionate Nasal Spray 16 gm Bottle NASAL SCH ×2 (08:54→20:47)
[2018-10-19] MEDS ORDERED: ISOVUE-370 76%-LOCM 1 ML ONE (10:53)
--- NOTE | 2018-10-19 11:13 | PDOC.GSPN ---
Surgery Progress Note: Subj - Subjective Narrative: Patient is being considered for peritoneal dialysis and if he decides to proceed with this will need a peritoneal dialysis catheter placement. He is seeing the PD training nurse today and I will follow up with him afterwards regarding his decision. Surgery Progress Note: Obj - Vital signs Vital signs: Vital Signs - Most Recent Temp Pulse Resp BP Pulse Ox 98.8 F 72 18 177/87 H 98 10/19/18 07:30 10/19/18 08:53 10/19/18 07:30 10/19/18 08:53 10/19/18 07:30 Surgery Progress Note: Results - Labs Result Diagrams: 10/19/18 05:50 10/19/18 05:50 Lab results: Laboratory Results - last 24 hr 10/19/18 10/19/18 10/19/18 04:29 05:50 05:50 WBC 6.0 RBC 2.66 L Hgb 7.7 L Hct 23.6 L MCV 88.9 MCH 29.0 MCHC 32.6 RDW 14.1 Plt Count 335 MPV 5.7 L Neutrophils % 70.8 Lymphocytes % 14.9 L Monocytes % 9.5 Eosinophils % 4.1 Basophils % 0.7 Neutrophils # 4.3 Lymphocytes # 0.9 L Monocytes # 0.6 H Eosinophils # 0.2 Basophils # 0.0 Sodium 135 L Potassium 3.8 Chloride 99 Carbon Dioxide 29 Anion Gap 11 BUN 15 Creatinine 2.22 H Estimated GFR (MDRD) 31 Glucose 132 H POC Glucose 144 H Calcium 8.4
--- NOTE | 2018-10-19 16:40 | CT ---
EXAM: CT angiogram abdomen with IV contrast and 3-D reconstructions PROVIDED CLINICAL HISTORY: Renal artery stenosis. COMPARISON: Studies on 08/26/2016 and 09/11/2018. FINDINGS: There is a small right and tiny left pleural effusions with associated passive atelectasis greater on the right. The heart is borderline enlarged. A heterogeneously enhancing mass measuring 3.8 cm is present in the right hepatic lobe. This is overa ll stable when compared to the prior study and prior imaging studies suggested that this represents a hemangioma. Subcentimeter too small to characterize hypodense lesion in the left hepatic lobe is ag ain seen. Increased density is again present within the gallbladder which is distended. There is gallbladder wa ll thickening. Pericholecystic fluid is seen, there is evidence of intraperitoneal free fluid which could account for these findings; although, pericholecystic inflammatory changes cannot be entirely e xcluded.. Findings could be related to cholecystitis in the correct clinical scenario. There is a stable 2.8 cm right adrenal nodule. Spleen, pancreas, left adrenal gland, and bilateral kidneys demonstrate a grossly normal CT appearanc e for arterial phase of imaging. The abdominal aorta is normal in caliber without evidence of an aortic dissection. The celiac, superi or mesenteric, and inferior mesenteric arteries are patent. There are 2 patent renal arteries bilaterally with dominant renal artery as well as small accessory renal arteries bilaterally. The visualized iliac arteries are patent. There is subcutaneous edema identified. IMPRESSION: 1. Gallbladder distention as well as gallbladder wall thickening. Similar finding was seen on noncont rast CT abdomen and pelvis on 09/11/2018. Gallbladder wall thickening is overall nonspecific but can be seen with cholecystitis in the correct clinical scenario. Other etiologies for gallbladder wall th ickening are a possibility. Increased density material in the gallbladder lumen may be related to sludge or gallbladder calculi layering dependently. 2. Small right and tiny left pleural effusions in addition to small amount of ascites and what appear s to be mild anasarca. 3. Heterogeneously enhancing mass right lobe of the liver with prior imaging studies suggesting a hem angioma. 4. Stable right adrenal nodule. 5. Patent bilateral renal arteries without atherosclerotic plaque or narrowing seen in either main re nal artery or the small caliber accessory renal arteries bilaterally.
--- NOTE | 2018-10-19 20:45 | PRG ---
DATE OF SERVICE: 10/19/2018 SUBJECTIVE: The patient was seen and examined, noted with the following vital signs. OBJECTIVE: VITAL SIGNS: Afebrile, blood pressure was 177/87. HEENT: Unremarkable. CARDIOVASCULAR SYSTEM: First and second heart sounds were heard. RESPIRATORY SYSTEM: Clear to auscultation. DIGESTIVE SYSTEM: Revealed a benign abdomen with positive bowel sounds. EXTREMITIES: No peripheral edema. SKIN: No new gross rash. LYMPHATICS: No peripheral lymphadenopathy. IMPRESSION: 1. End-stage renal disease, on hemodialysis. 2. Anemia of chronic kidney disease. PLAN: The patient has been briefed on the peritoneal dialysis modality, but the patient still has a lot of issues unresolved; therefore, the patient tends to put this modality of treatment on hold and will consider it later. Therefore, we will continue to pursue outpatient hemodialysis placement and disposition. Job ID: [id number]
[2018-10-19] MEDS: Zolpidem Tartrate 5 MG TAB PO SCH (20:46)
[2018-10-19] MEDS: Mirtazapine 30 MG TAB PO SCH (20:46)
[2018-10-20] MEDS ORDERED: Zolpidem Tartrate 5 MG TAB PO PRN (07:56)
[2018-10-20] MEDS ORDERED: Milk Of Magnesia 30 ML UDCUP PO SCH (08:00)
[2018-10-20] MEDS ORDERED: Heparin 10,000 UNITS/ 10 ML VIAL ONE (09:00)
[2018-10-20] MEDS ORDERED: NIFEdipine XL 30 MG TAB PO SCH (09:06)
[2018-10-20] MEDS: Docusate 100 MG CAP PO SCH ×4 (10:05→20:45)
[2018-10-20] MEDS: cloNIDine 0.2 MG TAB PO SCH ×2 (10:05→20:44)
[2018-10-20] MEDS: Carvedilol 25 MG TAB PO SCH ×2 (10:05→20:46)
[2018-10-20] MEDS: Triple Antibiotic Oint 1 GM Packet TOP SCH (10:06)
[2018-10-20] MEDS: Insulin Glargine 20 UNITS in Pre-Filled Syringe 1 EACH SC SCH (10:06)
[2018-10-20] MEDS: Fluticasone Propionate Nasal Spray 16 gm Bottle NASAL SCH ×2 (10:06→20:46)
[2018-10-20] MEDS: Loratadine 10 MG TAB PO SCH (10:06)
[2018-10-20] MEDS: hydrALAZINE 25 MG TAB PO SCH ×3 (10:06→20:44)
[2018-10-20] MEDS: NIFEdipine XL 90 MG TAB PO SCH (10:07)
[2018-10-20] MEDS: Potassium Chloride 10 MEQ TAB PO SCH (10:07)
--- NOTE | 2018-10-20 10:08 | PRG ---
DATE OF SERVICE: 10/20/2018 SUBJECTIVE: The patient was seen and examined. Noted with the following vital signs. OBJECTIVE: VITAL SIGNS: Afebrile, temperature 98.5, pulse 85, respiratory rate of 18, O2 saturations of 97%, and blood pressure 170/72. HEENT: Unremarkable. CARDIOVASCULAR: First and second heart sounds were heard. RESPIRATORY: Clear to auscultation. DIGESTIVE: Revealed a benign abdomen with positive bowel sounds. EXTREMITIES: No peripheral edema. SKIN: No new gross rash. LYMPHATICS: No peripheral lymphadenopathy. IMPRESSION: 1. End-stage renal disease, on hemodialysis. 2. Anemia of chronic kidney disease. 3. Sepsis, status post amputation. 4. Hypertension, suboptimally controlled. PLAN: 1. The patient to continue with current regimen of hemodialysis. 2. Adjust antihypertensive medications to optimize hemodynamics. 3. Limit fluid intake as the patient seems to . 4. Further management will be dependent on the clinical course. Job ID: [id number]
[2018-10-20] MEDS: NIFEdipine XL 30 MG TAB PO SCH (10:16)
[2018-10-20] MEDS ORDERED: Milk Of Magnesia 30 ML UDCUP PO PRN (12:00)
[2018-10-20] MEDS: EPOETIN ALFA-EPBX (ESRD) 4,000 UNIT/ML VIAL SC SCH (14:36)
[2018-10-20] MEDS: Zolpidem Tartrate 5 MG TAB PO SCH (20:44)
[2018-10-20] MEDS: Mirtazapine 30 MG TAB PO SCH (20:45)
--- NOTE | 2018-10-20 21:18 | PDOC.GSPN ---
Surgery Progress Note: Subj - Subjective Narrative: The patient did speak with peritoneal dialysis nurse educator yesterday but has decided not to proceed with peritoneal dialysis. He states that he doesn't think that he can do this with his neuropathy and his mobility limitations. He is also quite concerned about the risk of infection, and about going back to the operating room and given his previous intraoperative arrests. He is going to discuss his concerns further with the dialysis nurses, and decide whether to proceed or not, but does not feel ready to proceed at this time. His fistula is maturing nicely and should be ready to access soon. Surgery Progress Note: Obj - Vital signs Vital signs: Vital Signs - Most Recent Temp Pulse Resp BP Pulse Ox 98.4 F 80 18 161/72 H 98 10/20/18 20:00 10/20/18 20:44 10/20/18 20:00 10/20/18 20:44 10/20/18 20:00 Surgery Progress Note: Results - Labs Result Diagrams: 10/19/18 05:50 10/19/18 05:50 Lab results: Laboratory Results - last 24 hr 10/20/18 10/20/18 16:51 20:39 POC Glucose 149 H 144 H
[2018-10-21] MEDS: Docusate 100 MG CAP PO SCH ×4 (08:29→21:26)
[2018-10-21] MEDS: Fluticasone Propionate Nasal Spray 16 gm Bottle NASAL SCH ×2 (08:29→21:29)
[2018-10-21] MEDS: Insulin Glargine 20 UNITS in Pre-Filled Syringe 1 EACH SC SCH (09:42)
[2018-10-21] MEDS: hydrALAZINE 25 MG TAB PO SCH ×3 (09:43→21:27)
[2018-10-21] MEDS: Carvedilol 25 MG TAB PO SCH ×2 (09:44→21:26)
[2018-10-21] MEDS: cloNIDine 0.2 MG TAB PO SCH (09:44)
[2018-10-21] MEDS: Loratadine 10 MG TAB PO SCH (09:44)
[2018-10-21] MEDS: NIFEdipine XL 90 MG TAB PO SCH (09:45)
[2018-10-21] MEDS ORDERED: Milk Of Magnesia 30 ML UDCUP PO SCH (11:15)
[2018-10-21] MEDS: Insulin Regular 300 UNITS/3 ML VIAL SC PRN (12:33)
[2018-10-21] MEDS ORDERED: Milk Of Magnesia 30 ML UDCUP PO PRN (15:30)
[2018-10-21] MEDS: cloNIDine 0.3 MG TAB PO SCH ×2 (17:15→21:26)
[2018-10-21] MEDS: Mirtazapine 30 MG TAB PO SCH (21:27)
[2018-10-21] MEDS: Zolpidem Tartrate 5 MG TAB PO SCH (21:27)
[2018-10-22] MEDS: Insulin Regular 300 UNITS/3 ML VIAL SC PRN ×2 (05:52→12:45)
[2018-10-22] MEDS: hydrALAZINE 25 MG TAB PO SCH ×3 (08:37→21:54)
[2018-10-22] MEDS: Carvedilol 25 MG TAB PO SCH ×2 (08:38→21:51)
[2018-10-22] MEDS: Docusate 100 MG CAP PO SCH ×4 (08:38→21:54)
[2018-10-22] MEDS: Potassium Chloride 10 MEQ TAB PO SCH (08:38)
[2018-10-22] MEDS: Loratadine 10 MG TAB PO SCH (08:38)
[2018-10-22] MEDS: NIFEdipine XL 90 MG TAB PO SCH (08:39)
[2018-10-22] MEDS: cloNIDine 0.3 MG TAB PO SCH ×3 (08:39→21:52)
[2018-10-22] MEDS: Fluticasone Propionate Nasal Spray 16 gm Bottle NASAL SCH ×2 (08:40→21:53)
[2018-10-22] MEDS ORDERED: Oxymetazoline HCl 0.05% ( 15 ML ) NASAL SCH (09:00)
[2018-10-22] MEDS ORDERED: Milk Of Magnesia 30 ML UDCUP PO SCH (09:15)
[2018-10-22] MEDS ORDERED: Bisacodyl 10 MG SUPP PR SCH (09:15)
[2018-10-22] MEDS: Insulin Glargine 20 UNITS in Pre-Filled Syringe 1 EACH SC SCH (09:47)
[2018-10-22] MEDS: Sodium Chloride 0.65% Nasal 44 ML BOT EA NARE SCH ×2 (10:29→21:53)
[2018-10-22] MEDS ORDERED: Oxymetazoline HCl 0.05% (30 ML BOT) NS SCH (10:45)
[2018-10-22] MEDS: Mirtazapine 30 MG TAB PO SCH (21:51)
[2018-10-22] MEDS: Zolpidem Tartrate 5 MG TAB PO SCH (21:52)
[2018-10-22] MEDS: Oxymetazoline HCl 0.05% (30 ML BOT) NS SCH (21:53)
[2018-10-23] MEDS: cloNIDine 0.3 MG TAB PO SCH ×3 (08:16→20:50)
[2018-10-23] MEDS: Carvedilol 25 MG TAB PO SCH ×2 (08:16→20:50)
[2018-10-23] MEDS: NIFEdipine XL 90 MG TAB PO SCH (08:16)
[2018-10-23] MEDS: hydrALAZINE 25 MG TAB PO SCH ×3 (08:16→20:49)
[2018-10-23] MEDS: Oxymetazoline HCl 0.05% (30 ML BOT) NS SCH ×2 (08:17→20:51)
[2018-10-23] MEDS: Docusate 100 MG CAP PO SCH ×4 (08:17→20:50)
[2018-10-23] MEDS: Loratadine 10 MG TAB PO SCH (08:17)
[2018-10-23] MEDS: Fluticasone Propionate Nasal Spray 16 gm Bottle NASAL SCH ×2 (08:18→20:52)
[2018-10-23] MEDS: Insulin Glargine 20 UNITS in Pre-Filled Syringe 1 EACH SC SCH (08:20)
[2018-10-23] MEDS: Sodium Chloride 0.65% Nasal 44 ML BOT EA NARE SCH ×2 (08:27→18:15)
[2018-10-23] MEDS ORDERED: Heparin 10,000 UNITS/ 10 ML VIAL ONE ×2 (11:11→18:00)
[2018-10-23] MEDS: EPOETIN ALFA-EPBX (ESRD) 4,000 UNIT/ML VIAL SC SCH (14:56)
--- NOTE | 2018-10-23 16:00 | PRG ---
DATE OF SERVICE: 10/22/2018 SUBJECTIVE: The patient was seen and examined and noted with the following vital signs. OBJECTIVE: VITAL SIGNS: Afebrile, temperature 97.7; pulse 94; blood pressure ; respiratory rate of 16; O2 saturations of 97%. HEENT: Unremarkable. Moist oral mucosa. No conjunctival injection or icterus. NECK: Supple. CARDIOVASCULAR SYSTEM: First and second heart sounds were heard. RESPIRATORY SYSTEM: Clear to auscultation. DIGESTIVE SYSTEM: Revealed a benign abdomen with positive bowel sounds. EXTREMITIES: . PLAN: further management will be dependent on the clinical course. Job ID: [id number]
--- NOTE | 2018-10-23 16:32 | PDOC.GSPN ---
Surgery Progress Note: Subj - Subjective Narrative: Patient has decided against peritoneal dialysis. His fistula is maturing well. I will see him in my clinic after discharge. Signing off for now. Surgery Progress Note: Obj - Vital signs Vital signs: Vital Signs - Most Recent Temp Pulse Resp BP Pulse Ox 97.5 F L 94 18 115/56 L 99 10/23/18 08:16 10/23/18 14:58 10/23/18 08:16 10/23/18 14:58 10/23/18 08:16 Surgery Progress Note: Results - Labs Result Diagrams: 10/19/18 05:50 10/19/18 05:50 Lab results: Laboratory Results - last 24 hr 10/23/18 06:29 POC Glucose 184 H
[2018-10-23] MEDS: Mirtazapine 30 MG TAB PO SCH (20:48)
[2018-10-23] MEDS: Zolpidem Tartrate 5 MG TAB PO SCH (20:49)
--- NOTE | 2018-10-24 01:18 | PRG ---
DATE OF SERVICE: 10/24/2018 SUBJECTIVE: The patient was seen and examined Job ID: [id number]
[2018-10-24] MEDS: Insulin Regular 300 UNITS/3 ML VIAL SC PRN ×2 (05:25→21:01)
[2018-10-24] MEDS: Insulin Glargine 20 UNITS in Pre-Filled Syringe 1 EACH SC SCH (08:12)
[2018-10-24] MEDS: Carvedilol 25 MG TAB PO SCH ×2 (08:13→21:00)
[2018-10-24] MEDS: Potassium Chloride 10 MEQ TAB PO SCH (08:13)
[2018-10-24] MEDS: hydrALAZINE 25 MG TAB PO SCH ×3 (08:13→21:00)
[2018-10-24] MEDS: Loratadine 10 MG TAB PO SCH (08:14)
[2018-10-24] MEDS: Sodium Chloride 0.65% Nasal 44 ML BOT EA NARE SCH ×2 (08:14→20:58)
[2018-10-24] MEDS: Docusate 100 MG CAP PO SCH ×4 (08:14→21:00)
[2018-10-24] MEDS: Fluticasone Propionate Nasal Spray 16 gm Bottle NASAL SCH ×2 (08:15→20:58)
[2018-10-24] MEDS: cloNIDine 0.3 MG TAB PO SCH ×3 (08:15→21:00)
[2018-10-24] MEDS: Oxymetazoline HCl 0.05% (30 ML BOT) NS SCH ×2 (08:16→20:58)
[2018-10-24] MEDS: NIFEdipine XL 90 MG TAB PO SCH (08:16)
[2018-10-24] MEDS: Metoclopramide HCl 10 MG TAB PO SCH ×3 (12:24→20:59)
--- NOTE | 2018-10-24 20:31 | PRG ---
DATE OF SERVICE: 10/24/2018 SUBJECTIVE: The patient noted with the following vital signs. OBJECTIVE: VITAL SIGNS: Afebrile. Blood pressure 157/70, pulse of 70. HEENT: Examination unremarkable. CARDIOVASCULAR: First and second heart sounds were heard. RESPIRATORY: Clear to auscultation. DIGESTIVE SYSTEM: Revealed a benign abdomen with positive bowel sounds. EXTREMITIES: No peripheral edema. SKIN: No new gross rash. LYMPHATICS: No peripheral lymphadenopathy. IMPRESSION: 1. End-stage renal disease, on hemodialysis. 2. Anemia of chronic kidney disease. 3. Disposition challenge. PLAN: 1. The patient to continue with hemodialysis per schedule. Therefore, patient will be due for dialysis tomorrow. 2. Further management will be dependent on the clinical course. Job ID: [id number]
[2018-10-24] MEDS: Zolpidem Tartrate 5 MG TAB PO SCH (20:59)
[2018-10-24] MEDS: Mirtazapine 30 MG TAB PO SCH (20:59)
[2018-10-25] MEDS: cloNIDine 0.3 MG TAB PO SCH ×3 (08:36→21:11)
[2018-10-25] MEDS: NIFEdipine XL 90 MG TAB PO SCH (08:36)
[2018-10-25] MEDS: Loratadine 10 MG TAB PO SCH (08:37)
[2018-10-25] MEDS: Carvedilol 25 MG TAB PO SCH ×2 (08:37→21:09)
[2018-10-25] MEDS: hydrALAZINE 25 MG TAB PO SCH ×3 (08:37→21:09)
[2018-10-25] MEDS: Metoclopramide HCl 10 MG TAB PO SCH ×4 (08:38→21:08)
[2018-10-25] MEDS: Insulin Glargine 20 UNITS in Pre-Filled Syringe 1 EACH SC SCH (08:38)
[2018-10-25] MEDS: Sodium Chloride 0.65% Nasal 44 ML BOT EA NARE SCH ×2 (08:38→18:04)
[2018-10-25] MEDS: Oxymetazoline HCl 0.05% (30 ML BOT) NS SCH ×2 (08:39→21:12)
[2018-10-25] MEDS: Fluticasone Propionate Nasal Spray 16 gm Bottle NASAL SCH ×2 (08:39→21:12)
[2018-10-25] MEDS: Docusate 100 MG CAP PO SCH ×4 (08:43→21:11)
[2018-10-25 09:32] LABS: #Eosinphils 0.1 thou/uL (0.0-0.7); #Lymphocytes 1.1 thou/uL (1.20-3.40); #Monocytes 0.6 thou/uL (0.11-0.59); #Neutrophils 7.5 thou/uL (1.40-6.50); %Basophils 0.4 % (0.0-1.0); %Eosinophils 1.2 % (0.0-10.0); %Lymphocytes 11.8 % (21.0-51.0); %Neutrophils 80.6 % (42.0-75.0); Hemoglobin 8.7 g/dL (14.0-18.0); Mean Corpuscular HGB CONC 32.1 g/dL (32.0-36.0); Mean Corpuscular Hemoglobin 28.1 pg (27.0-31.0); Mean Corpuscular Volume 87.8 fL (78.0-98.0); Mean Platelet Volume 6.5 fL (7.4-10.4); Platelet Count 403 thou/uL (130-400); RBC Distribution Width 14.3 % (11.5-14.5); Red Blood Cell (RBC) Count 3.11 mill/uL (4.70-6.10); White Blood Cell (WBC) Count 9.3 thou/uL (4.8-10.8)
[2018-10-25 09:52] LABS: Albumin 2.9 g/dL (3.5-5.0); Anion Gap 11 mmol/L (10-20); BUN (Urea Nitrogen) 42 mg/dL (8.4-25.7); BUN/Creatinine Ratio 13.68; Calc. Creatinine Clearance 31 mL/min (70-130); Calcium 9.2 mg/dL (7.8-10.44); Carbon Dioxide 28 mmol/L (22-29); Chloride 97 mmol/L (98-107); Estimated GFR-MDRD 21; Glucose 171 mg/dL (70-105); Phosphorus 3.4 mg/dL (2.3-4.7); Potassium 4.4 mmol/L (3.5-5.1); Sodium 132 mmol/L (136-145)
[2018-10-25] MEDS ORDERED: Heparin 10,000 UNITS/ 10 ML VIAL ONE (11:11)
[2018-10-25] MEDS: EPOETIN ALFA-EPBX (ESRD) 4,000 UNIT/ML VIAL SC SCH (11:35)
--- NOTE | 2018-10-25 21:03 | PRG ---
DATE OF SERVICE: 10/25/2018 SUBJECTIVE: The patient is seen and examined today at dialysis. OBJECTIVE: VITAL SIGNS: Noted with the following vital signs. Temperature afebrile, blood pressure 157/70, pulse of 78. HEENT: Unremarkable. CARDIOVASCULAR: First and second heart sounds were heard. RESPIRATORY SYSTEM: Clear to auscultation. DIGESTIVE SYSTEM: Revealed a benign abdomen with positive bowel sounds. EXTREMITIES: No peripheral edema. SKIN: No new gross rash. LYMPHATICS: No peripheral lymphadenopathy. IMPRESSION: 1. End-stage renal disease, on hemodialysis. 2. Anemia of chronic kidney disease. 3. Sepsis, status post above knee amputation. PLAN: 1. The patient to continue with current hemodialysis schedule regimen. 2. Erythropoiesis stimulating agent. 3. Further management to be dependent on the clinical course. Job ID: [id number]
[2018-10-25] MEDS: Zolpidem Tartrate 5 MG TAB PO SCH (21:08)
[2018-10-25] MEDS: Mirtazapine 30 MG TAB PO SCH (21:08)
[2018-10-26] MEDS: cloNIDine 0.3 MG TAB PO SCH ×4 (00:45→22:20)
[2018-10-26 05:08] LABS: #Basophils 0.1 thou/uL (0.0-0.2); #Eosinphils 0.1 thou/uL (0.0-0.7); #Lymphocytes 1.5 thou/uL (1.20-3.40); #Monocytes 0.7 thou/uL (0.11-0.59); #Neutrophils 7.9 thou/uL (1.40-6.50); %Basophils 0.5 % (0.0-1.0); %Eosinophils 1.4 % (0.0-10.0); %Lymphocytes 14.1 % (21.0-51.0); %Monocytes 6.3 % (0.0-10.0); %Neutrophils 77.6 % (42.0-75.0); Hemoglobin 8.3 g/dL (14.0-18.0); Mean Corpuscular HGB CONC 32.2 g/dL (32.0-36.0); Mean Corpuscular Hemoglobin 28.1 pg (27.0-31.0); Mean Corpuscular Volume 87.5 fL (78.0-98.0); Mean Platelet Volume 6.2 fL (7.4-10.4); Platelet Count 386 thou/uL (130-400); RBC Distribution Width 14.3 % (11.5-14.5); Red Blood Cell (RBC) Count 2.95 mill/uL (4.70-6.10); White Blood Cell (WBC) Count 10.2 thou/uL (4.8-10.8)
[2018-10-26] MEDS: Carvedilol 25 MG TAB PO SCH ×2 (08:32→22:16)
[2018-10-26] MEDS: Potassium Chloride 10 MEQ TAB PO SCH (08:32)
[2018-10-26] MEDS: Docusate 100 MG CAP PO SCH ×3 (08:32→22:16)
[2018-10-26] MEDS: Insulin Glargine 20 UNITS in Pre-Filled Syringe 1 EACH SC SCH (08:33)
[2018-10-26] MEDS: Loratadine 10 MG TAB PO SCH (08:33)
[2018-10-26] MEDS: hydrALAZINE 25 MG TAB PO SCH ×3 (08:33→22:17)
[2018-10-26] MEDS: NIFEdipine XL 90 MG TAB PO SCH (08:33)
[2018-10-26] MEDS: Metoclopramide HCl 10 MG TAB PO SCH ×4 (08:33→22:16)
[2018-10-26] MEDS: Fluticasone Propionate Nasal Spray 16 gm Bottle NASAL SCH ×2 (08:34→22:19)
[2018-10-26] MEDS: Sodium Chloride 0.65% Nasal 44 ML BOT EA NARE SCH ×2 (08:34→16:55)
[2018-10-26] MEDS: Insulin Regular 300 UNITS/3 ML VIAL SC PRN (12:44)
[2018-10-26] MEDS ORDERED: Fleet Enema 133 ML BOT PR SCH (12:45)
[2018-10-26] MEDS ORDERED: Milk Of Magnesia 30 ML UDCUP PO SCH (12:45)
--- NOTE | 2018-10-26 14:14 | PDOC.PN ---
- Subjective Encounter Start Date: 10/26/18 Encounter Start Time: 14:13 Patient seen and examined, all questions answered. - Objective Resuscitation Status - Order Detail: 09/21/18 08:09 Resuscitation Status Routine Resuscitation Status: PRTL: Chem only Discussed with: patient Additional comments: CHEM CODE ONLY MEDS OK BUT NO SHOCKS, CHEST COMPRESSION , OR INTUBATION Vital Signs & Weight: Vital Signs (12 hours) Temp Pulse Resp BP BP BP Pulse Ox 10/26/18 12:02 98.2 F 72 16 185/71 H 99 10/26/18 08:33 76 189/73 H 10/26/18 08:32 189/73 H 10/26/18 07:44 98.7 F 76 16 189/73 H 95 10/26/18 04:00 97.7 F 83 20 164/84 H 97 Weight Admit Weight 197 lb 9 oz Weight 184 lb 1.376 oz Most Recent Monitor Data Heart Rate from ECG 78 NIBP 151/75 NIBP BP-Mean 100 Respiration from ECG 10 SpO2 100 I&O: 10/25/18 10/26/18 10/27/18 06:59 06:59 06:59 Intake Total 1200 480 Balance 1200 480 Result Diagrams: 10/26/18 04:56 10/25/18 09:05 Additional Labs: Accuchecks 10/26/18 10/26/18 10/25/18 12:03 04:19 20:50 POC Glucose 237 H 92 259 H 10/25/18 10/25/18 16:33 14:29 POC Glucose 80 92 Phys Exam - Physical Examination Constitutional: NAD HEENT: PERRLA, moist MMs, sclera anicteric Neck: no nodes, no JVD, supple Respiratory: no wheezing, no rales, no rhonchi Cardiovascular: RRR, no significant murmur, no rub Gastrointestinal: soft, non-tender, no distention Musculoskeletal: no edema, pulses present Dx/Plan (1) Gas gangrene Code(s): A48.0 - GAS GANGRENE Status: Acute (2) Infection Code(s): B99.9 - UNSPECIFIED INFECTIOUS DISEASE Status: Acute - Plan * line removed, monitor for now * cont abx * possible DC once cleared by subspecialists * case and plan d/w patient at length, he understood and agreed with this plan.
[2018-10-26] MEDS: Zolpidem Tartrate 5 MG TAB PO SCH (22:16)
[2018-10-26] MEDS: Mirtazapine 30 MG TAB PO SCH (22:17)
[2018-10-27 11:14] LABS: HBSAg Index 0.43 S/CO (0-0.99); Hep B Surf Ag Non-Reactive S/CO (NonReactive)
[2018-10-27] MEDS: hydrALAZINE 25 MG TAB PO SCH ×3 (13:17→22:21)
[2018-10-27] MEDS: Loratadine 10 MG TAB PO SCH (13:18)
[2018-10-27] MEDS: Carvedilol 25 MG TAB PO SCH ×2 (13:18→22:22)
[2018-10-27] MEDS: Metoclopramide HCl 10 MG TAB PO SCH ×4 (13:18→22:20)
[2018-10-27] MEDS: cloNIDine 0.3 MG TAB PO SCH ×3 (13:19→22:19)
[2018-10-27] MEDS: NIFEdipine XL 90 MG TAB PO SCH (13:19)
[2018-10-27] MEDS: Fluticasone Propionate Nasal Spray 16 gm Bottle NASAL SCH ×2 (13:26→22:21)
[2018-10-27] MEDS: Docusate 100 MG CAP PO SCH ×2 (13:26→22:21)
[2018-10-27] MEDS: Sodium Chloride 0.65% Nasal 44 ML BOT EA NARE SCH ×2 (13:27→22:19)
[2018-10-27] MEDS: Insulin Glargine 20 UNITS in Pre-Filled Syringe 1 EACH SC SCH (13:32)
--- NOTE | 2018-10-27 14:40 | PDOC.PN ---
- Subjective Encounter Start Date: 10/27/18 Encounter Start Time: 14:38 Patient seen and examined, no new issues. - Objective Resuscitation Status - Order Detail: 09/21/18 08:09 Resuscitation Status Routine Resuscitation Status: PRTL: Chem only Discussed with: patient Additional comments: CHEM CODE ONLY MEDS OK BUT NO SHOCKS, CHEST COMPRESSION , OR INTUBATION Vital Signs & Weight: Vital Signs (12 hours) Temp Pulse Resp BP BP BP Pulse Ox 10/27/18 13:26 70 10/27/18 13:19 70 186/76 H 10/27/18 13:17 70 10/27/18 07:44 98.6 F 70 16 177/75 H 96 10/27/18 04:50 98.3 F 72 16 173/74 H 95 Weight Admit Weight 197 lb 9 oz Weight 184 lb 1.376 oz Most Recent Monitor Data Heart Rate from ECG 78 NIBP 151/75 NIBP BP-Mean 100 Respiration from ECG 10 SpO2 100 I&O: 10/26/18 10/27/18 10/28/18 06:59 06:59 06:59 Intake Total 480 1900 Balance 480 1900 Result Diagrams: 10/26/18 04:56 10/25/18 09:05 Additional Labs: Accuchecks 10/27/18 10/26/18 10/26/18 04:43 20:48 16:40 POC Glucose 123 H 140 H 83 Phys Exam - Physical Examination Constitutional: NAD HEENT: PERRLA, moist MMs, sclera anicteric Neck: no nodes, no JVD, supple Respiratory: no wheezing, no rales, no rhonchi Cardiovascular: RRR, no significant murmur, no rub Gastrointestinal: soft, non-tender, no distention Musculoskeletal: no edema, pulses present Dx/Plan (1) Gas gangrene Code(s): A48.0 - GAS GANGRENE Status: Acute (2) Infection Code(s): B99.9 - UNSPECIFIED INFECTIOUS DISEASE Status: Acute (3) ESRD (end stage renal disease) Code(s): N18.6 - END STAGE RENAL DISEASE Status: Acute (4) Hypertension Code(s): I10 - ESSENTIAL (PRIMARY) HYPERTENSION Status: Acute - Plan * HD per renal * cont current plan of care for now * Dr. Bright to resume care on tuesday
[2018-10-27] MEDS: EPOETIN ALFA-EPBX (ESRD) 4,000 UNIT/ML VIAL SC SCH (16:59)
[2018-10-27] MEDS: Insulin Regular 300 UNITS/3 ML VIAL SC PRN (17:37)
--- NOTE | 2018-10-27 19:50 | PRG ---
DATE OF SERVICE: 10/27/2018 SUBJECTIVE: The patient is seen and examined. Noted with the following vital signs. OBJECTIVE: VITAL SIGNS: Blood pressure 186/76, pulse of 70. HEENT: Unremarkable. CARDIOVASCULAR SYSTEM: First and second heart sounds were heard. RESPIRATORY SYSTEM: Clear to auscultation. DIGESTIVE SYSTEM: Revealed a benign abdomen. EXTREMITIES: No peripheral edema. SKIN: No new gross rash. LYMPHATICS: No peripheral lymphadenopathy. IMPRESSION: 1. End-stage renal disease, on hemodialysis. 2. Anemia of chronic kidney disease. PLAN: Disposition challenge because of insurance status. Job ID: [id number]
[2018-10-27] MEDS: Mirtazapine 30 MG TAB PO SCH (22:20)
[2018-10-28] MEDS: Zolpidem Tartrate 5 MG TAB PO SCH ×2 (00:58→21:46)
[2018-10-28 04:56] LABS: #Eosinphils 0.1 thou/uL (0.0-0.7); #Lymphocytes 1.2 thou/uL (1.20-3.40); #Monocytes 0.6 thou/uL (0.11-0.59); #Neutrophils 6.2 thou/uL (1.40-6.50); %Basophils 0.6 % (0.0-1.0); %Eosinophils 1.7 % (0.0-10.0); %Lymphocytes 14.8 % (21.0-51.0); %Monocytes 7.4 % (0.0-10.0); %Neutrophils 75.5 % (42.0-75.0); Mean Corpuscular HGB CONC 32.2 g/dL (32.0-36.0); Mean Corpuscular Hemoglobin 28.1 pg (27.0-31.0); Mean Corpuscular Volume 87.4 fL (78.0-98.0); Mean Platelet Volume 6.5 fL (7.4-10.4); Platelet Count 346 thou/uL (130-400); Red Blood Cell (RBC) Count 2.84 mill/uL (4.70-6.10); White Blood Cell (WBC) Count 8.2 thou/uL (4.8-10.8)
[2018-10-28 05:18] LABS: Anion Gap 9 mmol/L (10-20); BUN (Urea Nitrogen) 18 mg/dL (8.4-25.7); Calc. Creatinine Clearance 52 mL/min (70-130); Calcium 9.1 mg/dL (7.8-10.44); Carbon Dioxide 29 mmol/L (22-29); Chloride 99 mmol/L (98-107); Estimated GFR-MDRD 38; Glucose 135 mg/dL (70-105); Potassium 3.9 mmol/L (3.5-5.1); Sodium 133 mmol/L (136-145)
[2018-10-28] MEDS: Insulin Glargine 20 UNITS in Pre-Filled Syringe 1 EACH SC SCH (08:36)
[2018-10-28] MEDS: Docusate 100 MG CAP PO SCH ×2 (08:37→21:49)
[2018-10-28] MEDS: Loratadine 10 MG TAB PO SCH (08:37)
[2018-10-28] MEDS: Metoclopramide HCl 10 MG TAB PO SCH ×4 (08:38→21:49)
[2018-10-28] MEDS: Fluticasone Propionate Nasal Spray 16 gm Bottle NASAL SCH ×2 (08:39→21:51)
[2018-10-28] MEDS: Potassium Chloride 10 MEQ TAB PO SCH (08:39)
[2018-10-28] MEDS: Carvedilol 25 MG TAB PO SCH ×2 (08:39→21:50)
[2018-10-28] MEDS: NIFEdipine XL 90 MG TAB PO SCH (08:40)
[2018-10-28] MEDS: cloNIDine 0.3 MG TAB PO SCH ×3 (08:44→21:51)
[2018-10-28] MEDS: hydrALAZINE 25 MG TAB PO SCH ×3 (08:45→21:49)
[2018-10-28] MEDS: Sodium Chloride 0.65% Nasal 44 ML BOT EA NARE SCH ×2 (08:45→21:50)
--- NOTE | 2018-10-28 12:07 | PDOC.PN ---
- Subjective Encounter Start Date: 10/28/18 Encounter Start Time: 12:04 Patient seen and examined, no new issues or complaints. - Objective Resuscitation Status - Order Detail: 09/21/18 08:09 Resuscitation Status Routine Resuscitation Status: PRTL: Chem only Discussed with: patient Additional comments: CHEM CODE ONLY MEDS OK BUT NO SHOCKS, CHEST COMPRESSION , OR INTUBATION Vital Signs & Weight: Vital Signs (12 hours) Temp Pulse Resp BP BP BP Pulse Ox 10/28/18 08:45 68 10/28/18 08:40 68 163/72 H 10/28/18 08:00 97.8 F 72 16 176/69 H 95 10/28/18 05:45 163/72 H Weight Admit Weight 197 lb 9 oz Weight 184 lb 1.376 oz Most Recent Monitor Data Heart Rate from ECG 78 NIBP 151/75 NIBP BP-Mean 100 Respiration from ECG 10 SpO2 100 I&O: 10/27/18 10/28/18 10/29/18 06:59 06:59 06:59 Intake Total 1900 400 Balance 1900 400 Result Diagrams: 10/28/18 04:34 10/28/18 04:34 Additional Labs: Accuchecks 10/28/18 10/27/18 10/27/18 05:45 20:11 16:47 POC Glucose 126 H 132 H 168 H Phys Exam - Physical Examination Constitutional: NAD HEENT: PERRLA, moist MMs, sclera anicteric Neck: no nodes, no JVD, supple Respiratory: no wheezing, no rales, no rhonchi Cardiovascular: RRR, no significant murmur, no rub Gastrointestinal: soft, non-tender, no distention, positive bowel sounds Musculoskeletal: pulses present, edema present Dx/Plan (1) Gas gangrene Code(s): A48.0 - GAS GANGRENE Status: Acute (2) Infection Code(s): B99.9 - UNSPECIFIED INFECTIOUS DISEASE Status: Acute (3) ESRD (end stage renal disease) Code(s): N18.6 - END STAGE RENAL DISEASE Status: Acute (4) Hypertension Code(s): I10 - ESSENTIAL (PRIMARY) HYPERTENSION Status: Acute - Plan * cont current plan of care * HD per renal * wound care * pending placement * DC once arranged
[2018-10-28] MEDS: Mirtazapine 30 MG TAB PO SCH (21:50)
[2018-10-29] MEDS: NIFEdipine XL 90 MG TAB PO SCH (08:26)
[2018-10-29] MEDS: Carvedilol 25 MG TAB PO SCH ×2 (08:26→20:45)
[2018-10-29] MEDS: Loratadine 10 MG TAB PO SCH (08:26)
[2018-10-29] MEDS: Docusate 100 MG CAP PO SCH ×2 (08:26→20:46)
[2018-10-29] MEDS: cloNIDine 0.3 MG TAB PO SCH ×3 (08:27→20:46)
[2018-10-29] MEDS: Fluticasone Propionate Nasal Spray 16 gm Bottle NASAL SCH ×2 (08:28→20:46)
[2018-10-29] MEDS: Metoclopramide HCl 10 MG TAB PO SCH ×4 (08:28→20:46)
[2018-10-29] MEDS: hydrALAZINE 25 MG TAB PO SCH ×3 (08:28→20:44)
[2018-10-29] MEDS: Insulin Glargine 20 UNITS in Pre-Filled Syringe 1 EACH SC SCH (08:28)
[2018-10-29] MEDS: Sodium Chloride 0.65% Nasal 44 ML BOT EA NARE SCH ×2 (08:29→20:46)
--- NOTE | 2018-10-29 17:49 | PRG ---
DATE OF SERVICE: 10/29/2018 SUBJECTIVE: The patient is seen and examined with no new complaint. Noted with the following vital signs. OBJECTIVE: VITAL SIGNS: Afebrile, temperature 98.2, pulse 75, respiratory rate of 20, blood pressure 173/74 to 198/77. HEENT: Unremarkable. CARDIOVASCULAR SYSTEM: First and second heart sounds were heard. RESPIRATORY SYSTEM: Clear to auscultation. DIGESTIVE SYSTEM: Revealed a benign abdomen. Positive bowel sounds. EXTREMITIES: No peripheral edema. SKIN: No new gross rash. LYMPHATICS: No peripheral lymphadenopathy. IMPRESSION: 1. Hypertension, suboptimally controlled. 2. Acute on chronic kidney disease with possibility of renal improvement as evidenced by the creatinine of 1.86. 3. Anemia of chronic kidney disease. PLAN: 1. We will re-evaluate this patient's renal function vis-a-vis the possibility of further recovery. The previous evaluation did yield a creatinine clearance of only 8, which was a big surprise and we will go ahead and hold dialysis tomorrow and follow this patient's renal function by aware of checking daily renal function panel. If it becomes very obvious that the patient's renal recovery has gotten to the point of being able to sustain him, decision will be made to discontinue dialysis outright. 2. Further management will be dependent on the clinical course. Job ID: [id number]
[2018-10-29] MEDS: Zolpidem Tartrate 5 MG TAB PO SCH (20:45)
[2018-10-29] MEDS: Mirtazapine 30 MG TAB PO SCH (20:45)
[2018-10-30 06:56] LABS: Albumin 2.6 g/dL (3.5-5.0); Anion Gap 12 mmol/L (10-20); BUN (Urea Nitrogen) 39 mg/dL (8.4-25.7); BUN/Creatinine Ratio 12.11; Calc. Creatinine Clearance 30 mL/min (70-130); Calcium 9.1 mg/dL (7.8-10.44); Carbon Dioxide 27 mmol/L (22-29); Chloride 99 mmol/L (98-107); Estimated GFR-MDRD 20; Glucose 182 mg/dL (70-105); Phosphorus 4.6 mg/dL (2.3-4.7); Sodium 134 mmol/L (136-145)
[2018-10-30] MEDS: Fluticasone Propionate Nasal Spray 16 gm Bottle NASAL SCH ×2 (08:04→21:38)
[2018-10-30] MEDS: Sodium Chloride 0.65% Nasal 44 ML BOT EA NARE SCH ×2 (08:04→18:16)
[2018-10-30] MEDS: Insulin Glargine 20 UNITS in Pre-Filled Syringe 1 EACH SC SCH (08:05)
[2018-10-30] MEDS: NIFEdipine XL 60 MG TAB PO SCH (08:05)
[2018-10-30] MEDS: Loratadine 10 MG TAB PO SCH (08:06)
[2018-10-30] MEDS: Potassium Chloride 10 MEQ TAB PO SCH (08:06)
[2018-10-30] MEDS: hydrALAZINE 25 MG TAB PO SCH ×3 (08:06→21:37)
[2018-10-30] MEDS: Carvedilol 25 MG TAB PO SCH ×2 (08:06→21:38)
[2018-10-30] MEDS: Metoclopramide HCl 10 MG TAB PO SCH ×4 (08:06→21:38)
[2018-10-30] MEDS: Docusate 100 MG CAP PO SCH ×2 (08:07→21:37)
[2018-10-30] MEDS: cloNIDine 0.3 MG TAB PO SCH ×3 (08:12→21:38)
[2018-10-30] MEDS: EPOETIN ALFA-EPBX (ESRD) 4,000 UNIT/ML VIAL SC SCH (10:54)
[2018-10-30 15:33] LABS: HBSAg Index 0.31 S/CO (0-0.99); Hep B Core Total Ab Non-Reactive (NonReactive); Hep B Core Total Index 0.09 S/CO (0-0.79); Hep B Surf Ag Non-Reactive S/CO (NonReactive)
[2018-10-30 15:38] LABS: HBSAB Concentration 24.59 mIU/mL; Hep B Surf AB Reactive (NonReactive)
[2018-10-30] MEDS: Insulin Regular 300 UNITS/3 ML VIAL SC PRN (17:54)
[2018-10-30] MEDS: Mirtazapine 30 MG TAB PO SCH (21:37)
[2018-10-30] MEDS: Zolpidem Tartrate 5 MG TAB PO SCH (21:38)
--- NOTE | 2018-10-30 23:18 | PRG ---
DATE OF SERVICE: 10/30/2018 SUBJECTIVE: The patient is seen and examined, noted with the following vital signs. OBJECTIVE: VITAL SIGNS: Temperature 97.9, pulse 69, blood pressure 177/67. HEENT: Unremarkable. CARDIOVASCULAR: First and second heart sounds were heard. RESPIRATORY: Clear to auscultation. DIGESTIVE SYSTEM: Revealed a benign abdomen with positive bowel sounds. EXTREMITIES: No peripheral edema. IMPRESSION: 1. End-stage renal disease, on hemodialysis. 2. Poorly controlled diabetes. 3. Dyslipidemia. PLAN: the patient's renal function is not yet fully resolved to the point of coming off dialysis Job ID: [id number]
[2018-10-31] MEDS: Insulin Regular 300 UNITS/3 ML VIAL SC PRN (06:07)
[2018-10-31 07:12] LABS: Albumin 2.7 g/dL (3.5-5.0); Anion Gap 14 mmol/L (10-20); BUN (Urea Nitrogen) 50 mg/dL (8.4-25.7); BUN/Creatinine Ratio 13.59; Calc. Creatinine Clearance 26 mL/min (70-130); Calcium 8.6 mg/dL (7.8-10.44); Carbon Dioxide 26 mmol/L (22-29); Chloride 97 mmol/L (98-107); Estimated GFR-MDRD 17; Glucose 289 mg/dL (70-105); Phosphorus 4.6 mg/dL (2.3-4.7); Potassium 4.5 mmol/L (3.5-5.1); Sodium 132 mmol/L (136-145)
[2018-10-31] MEDS: Insulin Glargine 20 UNITS in Pre-Filled Syringe 1 EACH SC SCH (07:50)
[2018-10-31] MEDS: Carvedilol 25 MG TAB PO SCH (07:51)
[2018-10-31] MEDS: hydrALAZINE 25 MG TAB PO SCH ×2 (07:51→15:25)
[2018-10-31] MEDS: NIFEdipine XL 60 MG TAB PO SCH (07:51)
[2018-10-31] MEDS: Loratadine 10 MG TAB PO SCH (07:52)
[2018-10-31] MEDS: Metoclopramide HCl 10 MG TAB PO SCH ×2 (07:52→13:39)
[2018-10-31] MEDS: Docusate 100 MG CAP PO SCH (07:52)
[2018-10-31] MEDS: Fluticasone Propionate Nasal Spray 16 gm Bottle NASAL SCH (07:53)
[2018-10-31] MEDS: Sodium Chloride 0.65% Nasal 44 ML BOT EA NARE SCH (07:53)
[2018-10-31] MEDS: cloNIDine 0.3 MG TAB PO SCH ×2 (08:00→15:27)
[2018-10-31 15:29] VITALS: BP 133/68
[2018-10-31 15:31] VITALS: TEMP 97.7
--- NOTE | 2018-10-31 19:46 | PRG ---
DATE OF SERVICE: 10/31/2018 SUBJECTIVE: The patient is seen and examined at dialysis, is doing okay and noted with the following vital signs. OBJECTIVE: VITAL SIGNS: Afebrile. Blood pressure 132/68, pulse 66, respiratory rate of 18, O2 saturation 96%. HEENT: Unremarkable. CARDIOVASCULAR: First and second heart sounds were heard. RESPIRATORY: Clear to auscultation. DIGESTIVE: Revealed a benign abdomen with positive bowel sounds. EXTREMITIES: No peripheral edema. SKIN: No new gross rash. LYMPHATICS: No peripheral lymphadenopathy. IMPRESSION: 1. End-stage renal disease, on hemodialysis. 2. Anemia of chronic kidney disease. 3. Sepsis, status post above-knee amputation. PLAN: 1. The patient to be dialyzed today and subsequently will be discharged to rehab. 2. Further management will be dependent on the clinical course. Job ID: [id number]
== END 2018-10-31 15:50 | DRG 853 ==
LOC: ERS 11:28 → T4-B 14:57 → CCU 09-07 19:58 → 2NO 09-17 16:05 → T4-A 09-24 13:48
PROVIDERS: ADMIT Specialist; ATTEND Specialist
PROC: 0Y6C0Z3 Detachment at Right Upper Leg, Low, Open Approach (ICD-10-PCS; principal; 2018-09-07)
PROC: 5A12012 Performance of Cardiac Output, Single, Manual (ICD-10-PCS; 2018-09-07)
PROC: 3E033XZ Introduction of Vasopressor into Peripheral Vein, Percutaneous Approach (ICD-10-PCS; 2018-09-07)
PROC: 06HM33Z Insertion of Infusion Device into Right Femoral Vein, Percutaneous Approach (ICD-10-PCS; 2018-09-07)
PROC: B54BZZA Ultrasonography of Right Lower Extremity Veins, Guidance (ICD-10-PCS; 2018-09-07)
PROC: 5A1955Z Respiratory Ventilation, Greater than 96 Consecutive Hours (ICD-10-PCS; 2018-09-07)
PROC: 0BH17EZ Insertion of Endotracheal Airway into Trachea, Via Natural or Artificial Opening (ICD-10-PCS; 2018-09-07)
PROC: 30233N1 Transfusion of Nonautologous Red Blood Cells into Peripheral Vein, Percutaneous Approach (ICD-10-PCS; 2018-09-09)
PROC: 0F9430Z Drainage of Gallbladder with Drainage Device, Percutaneous Approach (ICD-10-PCS; 2018-09-12)
PROC: 0JH63XZ Insertion of Tunneled Vascular Access Device into Chest Subcutaneous Tissue and Fascia, Percutaneous Approach (ICD-10-PCS; 2018-09-15)
PROC: 05HM33Z Insertion of Infusion Device into Right Internal Jugular Vein, Percutaneous Approach (ICD-10-PCS; 2018-09-15)
PROC: B543ZZA Ultrasonography of Right Jugular Veins, Guidance (ICD-10-PCS; 2018-09-15)
PROC: 05HN33Z Insertion of Infusion Device into Left Internal Jugular Vein, Percutaneous Approach (ICD-10-PCS; 2018-09-15)
PROC: B5141ZA Fluoroscopy of Left Jugular Veins using Low Osmolar Contrast, Guidance (ICD-10-PCS; 2018-09-15)
PROC: 0Y6C0Z2 Detachment at Right Upper Leg, Mid, Open Approach (ICD-10-PCS; 2018-09-20)
DX: A41.9 Sepsis, unspecified organism (principal); N18.6 End stage renal disease; A48.0 Gas gangrene; I46.9 Cardiac arrest, cause unspecified; J96.00 Acute respiratory failure, unspecified whether with hypoxia or hypercapnia; R65.21 Severe sepsis with septic shock; E11.52 Type 2 diabetes mellitus with diabetic peripheral angiopathy with gangrene; I12.0 Hypertensive chronic kidney disease with stage 5 chronic kidney disease or end stage renal disease; N17.9 Acute kidney failure, unspecified; M86.171 Other acute osteomyelitis, right ankle and foot; E87.1 Hypo-osmolality and hyponatremia; E87.2 Acidosis; D62 Acute posthemorrhagic anemia; Z91.14 Patient's other noncompliance with medication regimen; E86.0 Dehydration; E11.40 Type 2 diabetes mellitus with diabetic neuropathy, unspecified; E78.5 Hyperlipidemia, unspecified; E11.621 Type 2 diabetes mellitus with foot ulcer; L97.519 Non-pressure chronic ulcer of other part of right foot with unspecified severity; E11.22 Type 2 diabetes mellitus with diabetic chronic kidney disease; R00.1 Bradycardia, unspecified; E03.9 Hypothyroidism, unspecified; R00.8 Other abnormalities of heart beat; D63.1 Anemia in chronic kidney disease; E11.69 Type 2 diabetes mellitus with other specified complication; M60.861 Other myositis, right lower leg; E83.39 Other disorders of phosphorus metabolism; Z79.84 Long term (current) use of oral hypoglycemic drugs
CPT/HCPCS: 36415; 36416; 36430; 71045; 74175; 74176; 74230; 76770; 78452; 80048; 80053; 80069; 80076; 80202; 81003; 81015; 82533; 82553; 82570; 82575; 82728; 82805; 83036; 83540; 83550; 83605; 83630; 83970; 84156; 84443; 84484; 85007; 85025; 85027; 85610; 85730; 86580; 86704; 86705; 86706; 86803; 86850; 86900; 86901; 87040; 87070; 87076; 87077; 87102; 87149; 87186; 87205; 87206; 87324; 87340; 87449; 88307; 90935; 93005; 93010; 93017; 93306; 93970; 94002; 94003; 94760; 96361; 96365; 96366; 96367; 96374; 96375; A9500; C1752; C1769; C9113; G0257; G0365; J0131; J0153; J0171; J0670; J0690; J0696; J1265; J1642; J1644; J1720; J1815; J2001; J2060; J2185; J2248; J2250; J2270; J2370; J2405; J2543; J2704; J2720; J2785; J2795; J3010; J3370; J3490; J7050; J7070; J8597; L8460; P9016; P9047; Q5105; Q9966; Q9967; S0028

== ENCOUNTER 2019-05-29 06:58 | Day surgery (SDC) | payer MEDICARE, MEDICAID ==
[2019-05-28 11:56] VITALS: BMI 22.4
[2019-05-29 08:10] VITALS: BP 156/81; TEMP 97.8
[2019-05-29] MEDS ORDERED: FLU VACC QS2019-20(6MOS UP)/PF 60 MCG/0.5 ML SYRINGE IM ONE (12:00)
--- NOTE | 2019-05-29 12:16 | SPC ---
EXAM: US GUIDANCE VASCULAR ACCESS PROVIDED CLINICAL HISTORY: Nonmaturing right upper extremity arteriovenous dialysis fistula. COMPARISON: None FINDINGS/IMPRESSION: Limited sonographic evaluation of the right upper extremity arteriovenous dialysis fistula was perfor med. The arterial venous anastomosis and most proximal inflow of the arteriovenous dialysis right upper extremity fistula are patent with flow demonstrated. However, the fistula occludes after a few centimeters, and the remainder of the outflow vein is very small/atretic in appearance and occluded. Given the appearance of this very small outflow vein which is thrombosed, right upper extre mity fistulogram was not performed. Findings were discussed with Dr. Quick at this time.
== END 2019-05-29 08:25 | disposition home or self-care (01) ==
LOC: SPEC 06:58
PROVIDERS: ATTEND Surgery
DX: T82.868A Thrombosis due to vascular prosthetic devices, implants and grafts, initial encounter (principal); I12.0 Hypertensive chronic kidney disease with stage 5 chronic kidney disease or end stage renal disease; E11.22 Type 2 diabetes mellitus with diabetic chronic kidney disease; N18.6 End stage renal disease; Z53.09 Procedure and treatment not carried out because of other contraindication; K21.9 Gastro-esophageal reflux disease without esophagitis
CPT/HCPCS: 76937

== ENCOUNTER 2019-06-29 07:40 | Day surgery (SDC) | payer MEDICARE, MEDICAID ==
[2019-06-28 10:27] VITALS: BMI 21.1
[2019-06-29 09:00] LABS: #Basophils 0.1 thou/uL (0.0-0.2); #Eosinphils 0.2 thou/uL (0.0-0.7); #Monocytes 0.5 thou/uL (0.11-0.59); #Neutrophils 7.4 thou/uL (1.40-6.50); %Basophils 0.8 % (0.0-1.0); %Eosinophils 2.2 % (0.0-10.0); %Lymphocytes 11.2 % (21.0-51.0); %Monocytes 5.4 % (0.0-10.0); %Neutrophils 80.5 % (42.0-75.0); Hemoglobin 12.2 g/dL (14.0-18.0); Mean Corpuscular HGB CONC 34.2 g/dL (32.0-36.0); Mean Corpuscular Hemoglobin 31.2 pg (27.0-31.0); Mean Corpuscular Volume 91.3 fL (78.0-98.0); Mean Platelet Volume 7.1 fL (7.4-10.4); Platelet Count 239 thou/uL (130-400); RBC Distribution Width 13.5 % (11.5-14.5); White Blood Cell (WBC) Count 9.2 thou/uL (4.8-10.8)
[2019-06-29 09:20] LABS: Anion Gap 16 mmol/L (10-20); BUN (Urea Nitrogen) 42 mg/dL (8.4-25.7); Calc. Creatinine Clearance 17 mL/min (70-130); Calcium 8.6 mg/dL (7.8-10.44); Carbon Dioxide 25 mmol/L (22-29); Chloride 101 mmol/L (98-107); Estimated GFR-MDRD 14; Glucose 119 mg/dL (70-105); Potassium 4.8 mmol/L (3.5-5.1); Sodium 137 mmol/L (136-145)
[2019-06-29] MEDS ORDERED: Ondansetron PF 4 MG/2 ML Vial ONE (09:25)
[2019-06-29] MEDS ORDERED: PROPOFOL 200 MG/20 ML VIAL ONE (09:25)
[2019-06-29] MEDS ORDERED: EPHEDRINE 25 MG/5 ML SYRINGE ONE (09:25)
[2019-06-29] MEDS ORDERED: Lidocaine 1% PF 5 ML VIAL ONE (09:25)
[2019-06-29] MEDS ORDERED: Bupivacaine 0.25% HCL 30 ML VIAL ONE (10:16)
[2019-06-29] MEDS ORDERED: Lidocaine 1% w/Epinephrine 1:100K 20 ML VIAL ONE (10:16)
[2019-06-29] MEDS ORDERED: Heparin 0 ML ONE (10:23)
[2019-06-29] MEDS ORDERED: Heparin 5,000 UNITS/ML VIAL ONE (10:24)
[2019-06-29] MEDS ORDERED: Protamine Sulfate 50 MG/5 ML VIAL ONE (10:26)
[2019-06-29] MEDS ORDERED: Fentanyl 100 MCG/2 ML VIAL ONE ×2 (10:28→10:29)
--- NOTE | 2019-06-29 13:42 | PDOC.OP ---
Operative Note - Operative Note Operative Note: DATE OF PROCEDURE: 06/29/2019 PROCEDURE: Left upper arm AV fistula. SURGEON: Bob Quick M.D. PREOPERATIVE DIAGNOSIS: End-stage renal failure. POSTOPERATIVE DIAGNOSIS: End-stage renal failure. HISTORY: Patient with end-stage renal failure who requires permanent access for ongoing hemodialysis. He has a failed Karan fistula on the right and is right-handed. After reviewing vein mapping the decision was made to proceed with a primary fistula on the left. PROCEDURE: After informed consent was obtained and appropriate preoperative antibiotics administered, the patient was taken to the operating room and was placed in supine position and anesthesia was administered. A cephalic vein on the dorsum of the wrist was identified and local anesthesia infused. An incision was made overlying this and the cephalic vein at the level of the wrist was dissected out but was found to be of inadequate caliber to support a primary fistula. This skin incision was closed with 4-0 Monocryl and Dermabond was applied. Attention was then turned to the upper arm. The palpable antecubital vein was marked on the skin as was the palpable brachial pulse. An incision was made between these 2 structures and dissection carried down to the antecubital vein complex. There was no appropriate perforating branch but the forearm cephalic vein was patent and adequate. This was felt to be of adequate caliber and quality to support an AV fistula. The vein was interrogated with cardiac dilators and easily accepted up to a 3.5 mm dilator in the basilic outflow. The vein was flushed with heparinized saline and clamped. The patient was found to have a confluence of the cephalic and basilic vein with dual outflow, but the cephalic branch was smaller, accepting only up to a 2.5mm dilator. The radial artery was identified and dissected free. The radial artery was felt to be of adequate caliber and quality to support a fistula. This was dissected free. Heparin was administered systemically and allowed to circulate for 3 minutes. After the heparin had circulated for 3 minutes, the radial artery was clamped proximally and distally. An anterior arteriotomy was created with an 11 blade and extended with Dumont scissors. The vein was spatulated and an end-to-side anastomosis was created with excellent technical result. Prior to tying down the anastomosis, the arterial inflow was released flushing the anastomosis. The anastomosis was then secured and hemostasis was verified. Flow was established first through the fistula following which flow was restored through the artery. The patient had a palpable thrill in both the cephalic and the basilic outflows, as well as a good Doppler signal in the same distribution, and a good radial artery signal at the wrist. The wound was irrigated and examined for hemostasis which was again confirmed to be excellent. The subcutaneous tissues were reapproximated with a running 3-0 Monocryl sutures and the skin was closed with running 4-0 subcuticular Monocryl suture. Dermabond dressings were placed. The patient was then taken to recovery in good condition. Estimated blood loss was minimal. There were no complications. There were no specimens.
[2019-06-29] MEDS ORDERED: Heparin 10,000 UNITS/ 10 ML VIAL ONE (14:37)
== END 2019-06-29 15:30 ==
LOC: SDC 07:40
PROVIDERS: ATTEND Surgery
PROC: 031C0ZF Bypass Left Radial Artery to Lower Arm Vein, Open Approach (ICD-10-PCS; principal; 2019-06-29)
DX: I12.0 Hypertensive chronic kidney disease with stage 5 chronic kidney disease or end stage renal disease (principal); E11.22 Type 2 diabetes mellitus with diabetic chronic kidney disease; N18.6 End stage renal disease; E11.51 Type 2 diabetes mellitus with diabetic peripheral angiopathy without gangrene; Z79.4 Long term (current) use of insulin; Z79.51 Long term (current) use of inhaled steroids; Z79.899 Other long term (current) drug therapy; Z89.611 Acquired absence of right leg above knee; Z99.2 Dependence on renal dialysis
CPT/HCPCS: 36416; 80048; 85025; 93005; 93010; J0690; J1644; J2001; J2405; J2704; J2720; J3010; S0020

== ENCOUNTER 2019-11-07 08:54 | Emergency (ER) | payer MEDICARE, MEDICAID ==
[2019-11-07] MEDS ORDERED: hydrALAZINE 20 MG/ML VIAL ONE (09:18)
[2019-11-07 09:37] LABS: #Basophils 0.1 thou/uL (0.0-0.2); #Eosinphils 0.1 thou/uL (0.0-0.7); #Lymphocytes 1.4 thou/uL (1.20-3.40); #Monocytes 0.7 thou/uL (0.11-0.59); #Neutrophils 7.4 thou/uL (1.40-6.50); %Basophils 0.5 % (0.0-1.0); %Eosinophils 1.3 % (0.0-10.0); %Lymphocytes 14.7 % (21.0-51.0); %Monocytes 7.5 % (0.0-10.0); Hemoglobin 13.9 g/dL (14.0-18.0); Mean Corpuscular HGB CONC 32.3 g/dL (32.0-36.0); Mean Corpuscular Hemoglobin 29.2 pg (27.0-31.0); Mean Corpuscular Volume 90.4 fL (78.0-98.0); Platelet Count 253 thou/uL (130-400); RBC Distribution Width 12.2 % (11.5-14.5); Red Blood Cell (RBC) Count 4.76 mill/uL (4.70-6.10); White Blood Cell (WBC) Count 9.8 thou/uL (4.8-10.8)
[2019-11-07] MEDS ORDERED: Ondansetron PF 4 MG/2 ML Vial ONE (10:06)
[2019-11-07 10:11] LABS: ALT (SGPT) 13 U/L (8-55); AST (SGOT) 20 U/L (5-34); Albumin 4.4 g/dL (3.5-5.0); Alkaline Phosphatase 192 U/L (40-110); Anion Gap 17 mmol/L (10-20); BUN (Urea Nitrogen) 36 mg/dL (8.4-25.7); Bilirubin, Total 0.7 mg/dL (0.2-1.2); Calc. Creatinine Clearance 0 mL/min (70-130); Calcium 9.3 mg/dL (7.8-10.44); Carbon Dioxide 27 mmol/L (22-29); Chloride 93 mmol/L (98-107); Estimated GFR-MDRD 13; Globulin 3.5 g/dL (2.4-3.5); Glucose 170 mg/dL (70-105); Magnesium 2.3 mg/dL (1.6-2.6); Protein, Total 7.9 g/dL (6.0-8.3); Sodium 132 mmol/L (136-145)
[2019-11-07 10:19] LABS: CKMB 2.1 ng/mL (0-6.6)
== END 2019-11-07 15:39 | disposition home or self-care (01) ==
LOC: ERS 08:54
DX: I12.0 Hypertensive chronic kidney disease with stage 5 chronic kidney disease or end stage renal disease (principal); E11.22 Type 2 diabetes mellitus with diabetic chronic kidney disease; N18.6 End stage renal disease; E03.9 Hypothyroidism, unspecified; E11.42 Type 2 diabetes mellitus with diabetic polyneuropathy
CPT/HCPCS: 80053; 82553; 83735; 84100; 84484; 85025; 93005; 96374; 96375; J0360; J2405

== ENCOUNTER → 2019-11-07 | Day surgery (SDC) | payer MEDICARE, MEDICAID ==
[2019-11-06 10:01] VITALS: BMI 24.2
[~2019-11-07] MED LIST changes: -Bupivacaine PF 0.5% 30 ML VIAL ONE; +Carvedilol 25 MG TAB PO SCH; -Esmolol 100 MG/10 ML VIAL ONE; -Fentanyl 100 MCG/2 ML VIAL ONE; -Ketorolac Tromethamine 30 MG/ML VIAL ONE; -Lidocaine 2% PF 10 ML AMP (For Epidural Use) ONE; -Midazolam HCl 2 mg/2 ml Vial ONE; +NIFEdipine XL 60 MG TAB PO SCH; -Neomycin-Polymyxin 1 ML AMP ONE; -Ondansetron HCl/PF 4 MG/2 ML Vial ONE; -PHENYLEPHRINE-NS 100 MCG/ML 10 ML SYRINGE ONE; -Propofol 200 MG/20 ML VIAL ONE; +cloNIDine 0.1 MG TAB ONE
[2019-11-07 08:07] VITALS: BP 234/85; TEMP 98.2
== END ==
LOC: SPEC 07:05
PROVIDERS: ATTEND Surgery
DX: I12.0 Hypertensive chronic kidney disease with stage 5 chronic kidney disease or end stage renal disease (principal); E11.22 Type 2 diabetes mellitus with diabetic chronic kidney disease; E11.40 Type 2 diabetes mellitus with diabetic neuropathy, unspecified; N18.6 End stage renal disease; K21.9 Gastro-esophageal reflux disease without esophagitis; D64.9 Anemia, unspecified; Z53.9 Procedure and treatment not carried out, unspecified reason; Z79.4 Long term (current) use of insulin; Z79.899 Other long term (current) drug therapy; Z99.2 Dependence on renal dialysis

== ENCOUNTER 2019-11-12 07:22 | Day surgery (SDC) | payer MEDICARE, MEDICAID ==
[2019-11-09 08:43] VITALS: BMI 24.1
[2019-11-12 11:05] VITALS: BP 118/49; TEMP 97.9
--- NOTE | 2019-11-12 11:51 | SPC ---
Dialysis fistulogram left upper extremity Sonographic guided vascular access x2 HISTORY: Renal failure. Poor maturation of dialysis fistula. FINDINGS: After explaining the procedure and answering all questions, sonographic evaluation of the l eft upper arm dialysis fistula was performed. Multiple distended venous structures are present, including a duplicated cephalic vein. Arterial anastomosis was unable to be visualized sonographically. Sterile technique, buffered local anesthesia, sonographic guidance, and a 22-gauge needle were used t o carefully access the larger and more lateral of the cephalic veins, directed towards the arterial inflow. 4 [place] micropuncture sheath was placed for imaging. The large, dominant cephalic venous outflow is well opacified. A large antecubital vein is present an d a large collateral projecting laterally from the cephalic vein just above the antecubital fossa. Venous outflow and superior vena cava are widely patent. The catheter/sheath was carefully probed to the more peripheral portions of the cephalic vein, searching for the arterial anastomosis. Particular attention at the location of the hemostasis clips above and below the level of the antecub ital fossa. Arterial anastomosis was never documented. A second access with sonographic guided was achieved at the slightly smaller and more medial of the d uplicated cephalic veins, directed towards the arterial inflow.. A 4 [place] micropuncture sheath was placed for serial imaging. This vein also connected to the antecubital vein and same upper forear m vein between the radius and the ulna near the hemostasis clips. Gentle probing in multiple attempts to identify and opacified the arterial anastomosis were unsuccessful. The basilic vein did also opacify through a collateral just below the antecubital fossa. There are ex tensive collaterals throughout the upper arm from various branchings of the duplicated cephalic veins. Catheter was removed and hemostasis obtained using direct pressure. Patient tolerated the procedure w ell and was eventually dismissed in good condition. Fluoroscopy time 4.7 minutes. IMPRESSION : Poor arterial inflow. Arterial anastomosis was unable to be identified despite 2 vascular accesses at different sites and extensive investigation. A duplicated cephalic vein and the basilic vein are patent with multiple collateral veins.. No venous outflow stenosis.
== END 2019-11-12 10:20 | disposition home or self-care (01) ==
LOC: SPEC 07:22
PROVIDERS: ATTEND Surgery
PROC: B51W1ZZ Fluoroscopy of Dialysis Shunt/Fistula using Low Osmolar Contrast (ICD-10-PCS; principal; 2019-11-12)
DX: T82.590A Other mechanical complication of surgically created arteriovenous fistula, initial encounter (principal); I12.0 Hypertensive chronic kidney disease with stage 5 chronic kidney disease or end stage renal disease; E11.22 Type 2 diabetes mellitus with diabetic chronic kidney disease; N18.6 End stage renal disease; D63.1 Anemia in chronic kidney disease; E11.42 Type 2 diabetes mellitus with diabetic polyneuropathy; I45.10 Unspecified right bundle-branch block; F31.9 Bipolar disorder, unspecified; E03.9 Hypothyroidism, unspecified; K21.9 Gastro-esophageal reflux disease without esophagitis; E78.5 Hyperlipidemia, unspecified; Z79.4 Long term (current) use of insulin; Z79.899 Other long term (current) drug therapy; Z99.2 Dependence on renal dialysis
CPT/HCPCS: 36901; 76937

== ENCOUNTER 2020-05-02 06:37 | Day surgery (SDC) | payer MEDICARE, MEDICAID ==
[2020-05-01 10:12] VITALS: BMI 28.1
--- NOTE | 2020-05-01 13:29 | HP ---
HISTORY OF PRESENT ILLNESS: This is a 60-year-old gentleman with end-stage renal disease, on chronic hemodialysis. He has had a left arm AV fistula that has failed to mature and fistulogram did not clearly delineate anastomosis, and Dr. Quick has requested angiograms to evaluate the arterial inflow. PAST MEDICAL HISTORY: Includes type 2 diabetes mellitus, hypertension, end-stage renal disease with dialysis Tuesday, , Tuesday. PAST SURGICAL HISTORY: Includes a right 4th toe amputation, right foot debridement, right [id number] amputation, left femoral Trialysis catheter, central venous line placement, right arm AV fistula and then left arm AV fistula. MEDICATIONS: Include: 1. Clonidine 0.3 t.i.d. 2. Lantus insulin as needed. 3. Procardia XL 30 a day. 4. Protonix 40 a day. 5. Hydralazine 100 three times a day. 6. Clonidine 0.1 p.r.n. PHYSICAL EXAMINATION: GENERAL: Elderly gentleman, looking older than his stated age. VITAL SIGNS: Weight 187, height 5 feet 8 inches. Blood pressure 145/60. The patient is in a wheelchair when I examined him. NECK: He had no carotid bruits. CARDIAC: Regular rate and rhythm. No murmurs. LUNGS: Clear to auscultation. EXTREMITIES: He has had absent right leg above the knee with a fistula in the left upper arm with a bruit, but no thrill. Dressing on the outflow portion and the upper cephalic vein. Peripheral pulses, he has no left popliteal or pedal pulses. He does have some peripheral edema. PLAN: For angiography of the left arm via femoral approach, and I have discussed the procedure, indications, and risks with the patient, and he wishes to proceed. Job ID: [id number]
[2020-05-02 08:12] LABS: Hemoglobin 14.3 g/dL (14.0-18.0); Mean Corpuscular Hemoglobin 31.2 pg (27.0-31.0); Mean Corpuscular Volume 94.4 fL (78.0-98.0); Mean Platelet Volume 7.5 fL (7.4-10.4); Platelet Count 242 thou/uL (130-400); RBC Distribution Width 13.2 % (11.5-14.5); White Blood Cell (WBC) Count 13.9 thou/uL (4.8-10.8)
[2020-05-02 15:17] LABS: Calcium 7.5 mg/dL (7.8-10.44); Chloride 103 mmol/L (98-107); Potassium 3.8 mmol/L (3.5-5.1); Sodium 137 mmol/L (136-145)
[2020-05-02 15:18] LABS: Glucose 166 mg/dL (70-105)
[2020-05-02 15:19] LABS: Anion Gap 20 mmol/L (10-20); Carbon Dioxide 18 mmol/L (22-29)
[2020-05-02 15:21] LABS: Calc. Creatinine Clearance 18 mL/min (70-130)
[2020-05-02 15:22] LABS: BUN (Urea Nitrogen) 30 mg/dL (8.4-25.7)
--- NOTE | 2020-05-05 14:45 | OP ---
DATE OF PROCEDURE: 05/02/2020 PREOPERATIVE DIAGNOSIS: Non-maturing left arm arteriovenous fistula. PROCEDURE PERFORMED: Left upper extremity angiography. ANESTHESIA: Local. CONTRAST: 30 mL. FLUOROSCOPY: 4.3 minutes. DESCRIPTION OF PROCEDURE: After adequate prepping and draping, right common femoral artery puncture with a micropuncture kit was performed with ultrasonography. The micropuncture wire was exchanged for a 0.035 guidewire after placement of the micropuncture catheter and then this was exchanged for a 5-[place] dilator and sheath. Using a long-angled [place] catheter, wire and [place] catheter were advanced into the left subclavian artery origin, where angiograms were obtained demonstrating no stenosis of the subclavian artery at its origin or through its extent. An axillary artery also was normal. The catheter was then extended into the brachial artery, where runoff of the left arm with multiple projections was carried out. There was no evidence of arterial stenosis at the anastomosis. Although this specifically was difficult to visualize due to multiple venous collaterals, the flow was always brisk. The cephalic vein filled well and was nice caliber. The basilic vein did not fill, suggesting that this could have been some sort of transposition case. Radial and ulnar arteries filled well. The patient tolerated the procedure well. Catheters were removed and compression of the right groin was carried out. Job ID: [id number]
== END 2020-05-02 16:02 | disposition home or self-care (01) ==
LOC: CCL 06:37
PROVIDERS: ATTEND Thoracic Surgery (Cardiothoracic Vascular Surgery)
PROC: B31JZZZ Fluoroscopy of Left Upper Extremity Arteries (ICD-10-PCS; principal; 2020-05-02)
DX: T82.898A Other specified complication of vascular prosthetic devices, implants and grafts, initial encounter (principal); I12.0 Hypertensive chronic kidney disease with stage 5 chronic kidney disease or end stage renal disease; E11.22 Type 2 diabetes mellitus with diabetic chronic kidney disease; N18.6 End stage renal disease; Z79.4 Long term (current) use of insulin; Z79.899 Other long term (current) drug therapy; Z89.611 Acquired absence of right leg above knee; Z99.2 Dependence on renal dialysis
CPT/HCPCS: 36216; 75710; 76942; 80048; 85027; J1644